=== PATIENT | female | born 1930 | race Caucasian/White ===

== ENCOUNTER → 2016-11-16 | Outpatient (CLI) | payer OTHER ==
[~2016-11-16] MED LIST: ALEN70TA2 PO; BIOTIN 300 MCG PO; CALCTAB7 PO; CYAN250T PO; FERR325T5 PO; FISHOIL PO; HYDR25TA4 PO; LEVO75TA25 PO; LORA-741 PO; MULT-845 PO; OFLO0.3S4 OPL; PRED1SUS3 OPL; PRED1SUS3 OPR; PROP20TA67 PO; SENNTAB23; VITAMIN B COMPLEX PO; ZINC 50MG PO
[2016-11-16 15:36] LABS: ALT/SGPT 23 U/L (12-78); AST/SGOT 18 U/L (15-37); BLOOD UREA NITROGEN 27 mg/dl (7-18); BUN/CREATININE RATIO 22.8 (10-20); CALCIUM 9.3 mg/dl (8.5-10.1); CARBON DIOXIDE 29 mmol/L (21-32); CHLORIDE 100 mmol/L (98-107); GLUCOSE 83 mg/dl (70-99); POTASSIUM 4.1 mmol/L (3.5-5.1); SODIUM 136 mmol/L (136-145)
[2016-11-16 15:41] LABS: ALB/GLOB RATIO 0.9 (0.9-2); ALKALINE PHOSPHATASE 44 U/L (45-117)
== END | disposition home or self-care (01) ==
LOC: C.LABSPEC 14:59
PROVIDERS: ATTEND Internal Medicine
DX: E55.9 Vitamin D deficiency, unspecified (principal); E03.9 Hypothyroidism, unspecified; I10 Essential (primary) hypertension; M81.0 Age-related osteoporosis without current pathological fracture

== ENCOUNTER → 2017-04-03 | Outpatient (CLI) | payer OTHER ==
--- NOTE | 2017-04-03 16:06 | MAMMOGRAPHY REPORT ---
BILATERAL DIGITAL SCREENING MAMMOGRAM TOMOSYNTHESIS WITH CAD: 04/03/2017 CLINICAL HISTORY: Routine screening. Patient has no complaints. TECHNIQUE: Breast tomosynthesis in addition to standard 2D mammography was performed. Current study was also evaluated with a Computer Aided Detection (CAD) system. COMPARISON: Comparison is made to exams dated: 03/30/2016 mammogram, 03/27/2015 mammogram, 03/26/2014 ma mmogram, 03/25/2013 mammogram, 03/21/2011 mammogram, and 03/19/2010 mammogram - [facility]. BREAST COMPOSITION: The tissue of both breasts is heterogeneously dense, which may obscure small mas ses. FINDINGS: A nodular asymmetry in the lateral right breast appears similar dating back to at least , therefore likely benign. There are benign rim calcifications in the left breast. No new bedoya spicious mass, architectural distortion or cluster of microcalcifications is seen. IMPRESSION: ACR BI-RADS CATEGORY 1: NEGATIVE There is no mammographic evidence of malignancy. A 1 year screening mammogram is recommended. The pa tient will receive written notification of the results. Approximately 10% of breast cancers are not detected with mammography. A negative mammographic report should not delay biopsy if a clinically suggestive mass is present. Cinthia Mejia M.D. ay/:04/03/2017 15:22:14 Ocean Export Coordinator: Thalia FERRELL(Bella)(Shon), [facility] letter sent: Normal 1/2 BI-RADS Code: ACR BI-RADS Category 1: Negative
== END | disposition home or self-care (01) ==
LOC: C.MAMM 11:56
PROVIDERS: ATTEND Internal Medicine
DX: Z12.31 Encounter for screening mammogram for malignant neoplasm of breast (principal); M81.0 Age-related osteoporosis without current pathological fracture; M85.851 Other specified disorders of bone density and structure, right thigh; M85.852 Other specified disorders of bone density and structure, left thigh; M85.832 Other specified disorders of bone density and structure, left forearm

== ENCOUNTER → 2017-05-25 | Outpatient (CLI) | payer OTHER ==
[2017-05-25 12:20] LABS: BASO % 0.7 %; BASO ABS # 0.04 K/uL (0-0.2); COMPLETE YES; HEMATOCRIT 36.7 % (37-47); IG% 0.2 %; LYMPH % 26.7 %; LYMPH ABS # 1.48 K/uL (1.2-3.4); MEAN CELL VOLUME 96.8 fL (80-100); MEAN CORPUSCULAR HEMOGLOBIN 31.1 pg (25-34); MEAN CORPUSCULAR HGB CONC 32.2 g/dl (32-36); MEAN PLATELET VOLUME 10.3 fL (7.4-10.4); NEUT % 59.4 %; PLATELET COUNT 266 K/uL (130-400); RED BLOOD COUNT 3.79 M/uL (4.2-5.4); WHITE BLOOD COUNT 5.55 K/uL (4.8-10.8)
[2017-05-25 12:35] LABS: ALT/SGPT 22 U/L (12-78); BLOOD UREA NITROGEN 19 mg/dl (7-18); BUN/CREATININE RATIO 17.6 (10-20); CALCIUM 9.4 mg/dl (8.5-10.1); CARBON DIOXIDE 28 mmol/L (21-32); CHLORIDE 106 mmol/L (98-107); CHOLESTEROL 166 mg/dl (0-200); GLUCOSE 91 mg/dl (70-99); POTASSIUM 3.9 mmol/L (3.5-5.1); SODIUM 141 mmol/L (136-145); TRIGLYCERIDES 71 mg/dl (0-150); VERY LOW DENSITY LIPOPROT CALC 14 mg/dl
[2017-05-25 12:43] LABS: ALB/GLOB RATIO 0.9 (0.9-2); ALKALINE PHOSPHATASE 45 U/L (45-117); AST/SGOT 19 U/L (15-37); HDL CHOLESTEROL 55 mg/dl; THYROID STIMULATING HORMONE 0.887 uIu/ml (0.300-4.500)
== END | disposition home or self-care (01) ==
LOC: C.LABSPEC 11:58
PROVIDERS: ATTEND Internal Medicine
DX: Z00.01 Encounter for general adult medical examination with abnormal findings (principal); E78.5 Hyperlipidemia, unspecified; I10 Essential (primary) hypertension; E03.9 Hypothyroidism, unspecified

== ENCOUNTER → 2017-06-12 | Outpatient (CLI) | payer OTHER ==
[2017-06-12 18:51] LABS: BASO % 0.3 %; BASO ABS # 0.02 K/uL (0-0.2); COMPLETE YES; EOS % 3.2 %; HEMATOCRIT 33.8 % (37-47); LYMPH % 27.5 %; LYMPH ABS # 1.81 K/uL (1.2-3.4); MEAN CELL VOLUME 96.6 fL (80-100); MEAN CORPUSCULAR HEMOGLOBIN 30.9 pg (25-34); MEAN PLATELET VOLUME 10.3 fL (7.4-10.4); MONO % 12.8 %; NEUT % 56.2 %; PLATELET COUNT 276 K/uL (130-400); WHITE BLOOD COUNT 6.58 K/uL (4.8-10.8)
== END | disposition home or self-care (01) ==
LOC: C.LABSPEC 18:14
PROVIDERS: ATTEND Internal Medicine
DX: M19.90 Unspecified osteoarthritis, unspecified site (principal)

== ENCOUNTER → 2017-07-17 | Outpatient (CLI) | payer OTHER ==
[~2017-07-17] MED LIST changes: +CHOL1000 PO; +GLUCTAB7 PO; +LEVO75TA5 PO; +MELO15TA10 PO
[2017-07-17 16:51] LABS: BASO % 0.3 %; BASO ABS # 0.02 K/uL (0-0.2); COMPLETE YES; EOS % 3.8 %; HEMATOCRIT 37.1 % (37-47); IG% 0.3 %; LYMPH % 27.9 %; LYMPH ABS # 2.05 K/uL (1.2-3.4); MEAN CELL VOLUME 96.6 fL (80-100); MEAN CORPUSCULAR HEMOGLOBIN 31.5 pg (25-34); MEAN CORPUSCULAR HGB CONC 32.6 g/dl (32-36); MEAN PLATELET VOLUME 10.3 fL (7.4-10.4); NEUT % 53.7 %; PLATELET COUNT 348 K/uL (130-400); RED BLOOD COUNT 3.84 M/uL (4.2-5.4); WHITE BLOOD COUNT 7.35 K/uL (4.8-10.8)
[2017-07-17 17:42] LABS: BLOOD UREA NITROGEN 27 mg/dl (7-18); BUN/CREATININE RATIO 17.2 (10-20); CARBON DIOXIDE 29 mmol/L (21-32); CHLORIDE 99 mmol/L (98-107); CREATININE 1.57 mg/dl (0.60-1.20); GLUCOSE 85 mg/dl (70-99); POTASSIUM 3.9 mmol/L (3.5-5.1); SODIUM 136 mmol/L (136-145)
== END | disposition home or self-care (01) ==
LOC: C.CPL 15:15
PROVIDERS: ATTEND Orthopaedic Surgery
DX: M79.641 Pain in right hand (principal)

== ENCOUNTER → 2017-07-26 | Outpatient (CLI) | payer OTHER ==
[~2017-07-26] MED LIST changes: +CEPH500C2 PO; -FISHOIL PO; -LEVO75TA25 PO; -OFLO0.3S4 OPL; -PRED1SUS3 OPL; -PRED1SUS3 OPR
--- NOTE | 2017-07-26 13:43 | MAMMOGRAPHY REPORT ---
UNILATERAL LEFT DIGITAL DIAGNOSTIC MAMMOGRAM TOMOSYNTHESIS WITH CAD AND TARGETED LEFT ULTRASOUND: CLINICAL HISTORY: 86-year-old woman presents with a two-week history of swelling and mild erythema th roughout the left breast extending into the axilla and midaxillary line. No nipple discharge reporte d by the patient. TECHNIQUE: Left breast tomosynthesis in addition to standard 2D mammography was performed. Current st udy was also evaluated with a Computer Aided Detection (CAD) system. COMPARISON: Comparison is made to exams dated: 04/03/2017 mammogram, 03/30/2016 mammogram, 03/27/2015 keyla mogram, 03/26/2014 mammogram, 03/25/2013 mammogram, and 03/22/2012 mammogram - [facility]. BREAST COMPOSITION: The tissue of the left breast is heterogeneously dense, which may obscure small masses. FINDINGS: There is new diffuse trabecular edema throughout the left breast, most prominent posterior ly, which is best appreciated on the MLO view. The previously observed crisp fat planes surrounding the left pectoralis muscle are obscured by the edema. There is also new diffuse skin thickening thro ughout the left breast, also a change from the 04/03/2017 mammogram. No obvious new focal mass or fo isaac area of architectural distortion is seen. No obvious lymphadenopathy appreciated on the MLO view . Further evaluation with ultrasound was performed. Targeted ultrasound was performed in the left axilla, throughout the left breast and slightly inferio r and lateral to the left axilla. Along the inferolateral aspect of the left axilla, there are round ed hypoechoic solid masses, that most likely represent morphologically abnormal lymph nodes. The lar gest measures 2.0 x 2.0 x 2.0 cm. More medially within the left axilla, a few lymph nodes are seen t hat are more normal in appearance with possible minimal cortical thickening measuring up to 3 mm. Th en sonographic evaluation was performed throughout the left breast. No discrete solid or cystic mass is seen. No drainable fluid collection identified. However, skin thickening is appreciated through out the entire left breast. IMPRESSION: ACR BI-RADS CATEGORY 4: SUSPICIOUS, TARGETED ULTRASOUND ACR BI-RADS CATEGORY 4: SUSPICIO US There is new diffuse skin thickening and trabecular edema of the left breast mammographically, with e vidence of skin thickening in the left breast on targeted ultrasound. There are also morphologically abnormal lymph node seen in the left axilla in an area of swelling. Differential considerations inc lude inflammatory breast cancer, lymphoma, possibly diffuse cellulitis/mastitis without evidence of a bscess. Therefore recommend a skin punch biopsy of the left breast to assess for possible inflammato ry carcinoma, and also recommend ultrasound-guided fine-needle aspiration and/or core needle biopsy o f the largest abnormal left axillary lymph node which measures 2 cm. These results and recommendations were discussed with the patient at the time of the exam. She tenta tively scheduled the left axillary lymph node FNA versus core needle biopsy prior to leaving our depa rtment. These findings were also discussed with Dr. Hoang, who will schedule the patient for sk in punch biopsy. Approximately 10% of breast cancers are not detected with mammography. A negative mammographic report should not delay biopsy if a clinically suggestive mass is present. Cinthia Mejia M.D. ay/:07/26/2017 10:48:10 Director Of Employee Development: Hanane FERRELL(Bella)(Shon), [facility] letter sent: Abnormal 4/5 BI-RADS Code: ACR BI-RADS Category 4: Suspicious Ultrasound BI-RADS: ACR BI-RADS Category 4: Suspici ous
== END | disposition home or self-care (01) ==
LOC: C.MAMM 07:58
PROVIDERS: ATTEND Internal Medicine
DX: N64.9 Disorder of breast, unspecified (principal); N64.4 Mastodynia

== ENCOUNTER → 2017-07-27 | Outpatient (CLI) | payer OTHER ==
[2017-07-27 14:08] LABS: BASO % 0.3 %; BASO ABS # 0.02 K/uL (0-0.2); COMPLETE YES; EOS % 2.7 %; HEMATOCRIT 35.5 % (37-47); IG% 0.1 %; LYMPH % 18.6 %; LYMPH ABS # 1.45 K/uL (1.2-3.4); MEAN CELL VOLUME 98.9 fL (80-100); MEAN CORPUSCULAR HEMOGLOBIN 31.2 pg (25-34); MEAN CORPUSCULAR HGB CONC 31.5 g/dl (32-36); MEAN PLATELET VOLUME 10.4 fL (7.4-10.4); MONO % 10.9 %; NEUT % 67.4 %; PLATELET COUNT 303 K/uL (130-400); RED BLOOD COUNT 3.59 M/uL (4.2-5.4)
[2017-07-27 14:22] LABS: ALT/SGPT 22 U/L (12-78); AST/SGOT 21 U/L (15-37); BLOOD UREA NITROGEN 16 mg/dl (7-18); BUN/CREATININE RATIO 15.7 (10-20); CALCIUM 9.2 mg/dl (8.5-10.1); CARBON DIOXIDE 29 mmol/L (21-32); CHLORIDE 102 mmol/L (98-107); GLUCOSE 93 mg/dl (70-99); POTASSIUM 3.8 mmol/L (3.5-5.1); SODIUM 137 mmol/L (136-145)
[2017-07-27 14:25] LABS: ALB/GLOB RATIO 0.9 (0.9-2); ALKALINE PHOSPHATASE 50 U/L (45-117)
== END | disposition home or self-care (01) ==
LOC: C.LABSPEC 12:49
PROVIDERS: ATTEND Internal Medicine
DX: R59.9 Enlarged lymph nodes, unspecified (principal)

== ENCOUNTER → 2017-07-27 | Outpatient (CLI) | payer OTHER | END | disposition home or self-care (01) | LOC: C.PATHSPEC 14:13 | PROVIDERS: ATTEND Internal Medicine | DX: R59.9 Enlarged lymph nodes, unspecified (principal) ==

== ENCOUNTER → 2017-08-01 | Outpatient (CLI) | payer OTHER ==
[~2017-08-01] MED LIST changes: +HYDR-5688 PO
--- NOTE | 2017-08-01 13:31 | Discharge Instructions ---
Discharge Instructions Procedure Procedure Date: Aug 01, 2017. Reason for visit: Left Axillary Lymph Node. Discharge Discharge Date: Aug 01, 2017. Discharge Diagnosis: post left axillary lymph node ultrasound guided core biopsy and FNA Instructions Activity Recommendations: Additional Limitations (see below) Return to School/Work: no limitations Recommended Home Diet: No Limitations Provider Instructions: ACTIVITY RECOMMENDATIONS: * No lifting, pushing, pulling or exercising the affected side for three days. RETURN TO SCHOOL/WORK: * You may return to work/school after the procedure, but do not perform any strenuous activities for 24 to 48 hours. MEDICATIONS: * Tylenol (two 325 mg) every four to six hours if needed for mild pain (if not allergic to Tylenol). DIET: * Resume previous diet. SPECIAL CARE INSTRUCTIONS: * Keep biopsy site dry for 24 hours. May shower after 24 hours, but do not soak (bathe) incision. * May remove Tegaderm (plastic patch) tomorrow AFTER showering. * Leave the steri-strips on for one week. Allow the steri-strips to fall off by themselves. If not off after one week, you may remove them. You may place a Bandaid crosswise over the strips, if desired. * Apply ice 10 minutes on and 10 minutes off as needed. * Wear a bra at bedtime to sleep more comfortably for 2-3 days. * Your referring physician should have the results after approximately 5 to 7 business days. * Call for unusual bleeding, fever, drainage, etc or if you have any questions call [phone] during normal business hours or after hours call Dr Mejia, . FOLLOW UP VISIT: Follow-up with Referring Physician as scheduled. Allergies Coded Allergies: No Known Allergies (Verified , 07/19/17) Julianne Prakash Recommendations: Call your doctor if: * Temperature above 101 degrees * Pain not relieved by pain medicine ordered * There is increased drainage or redness from any incision * You have any unanswered questions or concerns. Your Doctors Instructions noted above were prepared by provider Cinthia Mejia. Patient Signature Section: Patient Instructions Signature Page Collette Kovacs Patient (or Guardian) Signature/Date: I have read and understand the instructions given to me by my caregivers. Caregiver/RN/Doctor Signature/Date: The above-named patient and/or guardian has received patient instructions on this date. + Original Patient Signature Page (only) stays with chart. Please make copy for patient.
--- NOTE | 2017-08-02 07:34 | MAMMOGRAPHY REPORT ---
ULTRASOUND GUIDED BIOPSY LEFT BREAST: 08/01/2017 CLINICAL HISTORY: Swelling and erythema of the left breast. Patient found to have suspicious lymphad enopathy in the left axilla on targeted ultrasound. Patient presents for biopsy of the largest abnor mal lymph node. Recent skin punch biopsy yielded no malignant cells and nonspecific inflammation. COMPARISON: Comparison is made to exams dated: 07/26/2017 ultrasound, 07/26/2017 mammogram, and 2016 mammogram - [facility]. PATIENT CONSENT: The procedure, risks and benefits were discussed with the patient and informed conse nt was obtained both verbally and in writing. Specific risks to this procedure include: bleeding, in fection, puncture of adjacent structure, nontarget biopsy, sampling error, pain, metal allergy and me dication reaction. PROCEDURE DESCRIPTION: A time out was performed and the left axillary lymph node was agreed as the si te of biopsy. The skin was prepped and draped in the usual sterile fashion. The rounded hypoechoic so lid mass in the inferior and lateral left axilla was identified and targeted for biopsy. Subcutaneou s and intraparenchymal 1% buffered lidocaine, with and without epinephrine, was administered as local anesthesia. A skin incision was made. Through the incision, 4 core samples were taken with an 18 ga uge Quick-core biopsy device. Additionally, 2 fine-needle aspiration passes were obtained utilizing 22-gauge needles, and the aspirate rinsed in sterile saline. A sonolucent metallic biopsy marker was placed within the lymph node at the biopsy site. Hemostasis was achieved after manual compression. T he patient tolerated the procedure well and there was no immediate complication. Steri-Strips were p laced over the small skin incision, and covered by an OpSite patch. The samples were sent to the [facility] hology/cytology department in appropriately labeled containers. Postprocedure imaging was deferred given the far superior and lateral location of the lymph node, as it would unlikely be visualized mammographically. IMPRESSION: ULTRASOUND GUIDED BIOPSY Status post ultrasound-guided core biopsy and also fine-needle aspiration biopsy of a morphologically abnormal lymph node in the left axilla. A sonolucent biopsy marker clip was placed within the sampl ed lymph node. The patient will receive notification of the biopsy results from her referring physician. Cinthia Mejia M.D. ay/:08/01/2017 14:39:59 Grade School Teacher: Ruby FERRELL(R)(M), [facility]
== END | disposition home or self-care (01) ==
LOC: C.MAMM 12:35
PROVIDERS: ATTEND Internal Medicine
DX: C85.94 Non-Hodgkin lymphoma, unspecified, lymph nodes of axilla and upper limb (principal)

== ENCOUNTER → 2017-08-03 | Day surgery (SDC) | payer OTHER ==
[2017-07-19 15:47] VITALS: Ht 130.8 cm; Wt 60.5 kg
[~2017-08-03] VITALS: Ht 130.8 cm; Wt 60.5 kg
[~2017-08-03] MED LIST changes: +ATROPINE SULFATE 0.1 MG/ML 5ML SYR IV PRN; +EpHEDrine SULFATE INJ 50 MG/ML AMP IV PRN; +FENTANYL CITRATE INJ 50 MCG/1 ML 2 ML VIAL IV PRN; +HYDROCODONE/ACETAMOPHEN 5/325MG TAB PO PRN; +LACTATED RINGER'S 1000ML 1,000 ML IV SCH; +LIDOCAINE HCL 2% 2 ML VIAL (20MG/ML) ONE; +LIDOCAINE HCL 2% LOCAL 20 ML VIAL ONE; +MIDAZOLAM HCL 1 MG/ML 2ML VIAL ONE; +ONDANSETRON INJ 2 MG/ML 2 ML VIAL IV PRN; +PHENYLEPHRINE HCL INJ 10 MG/ML VIAL ONE; +PROPOFOL IV EMULSION 10 MG/ML 20 ML VIAL IV ONE; +SODIUM CHLORIDE 0.9% 1000ML 1,000 ML IV SCH
--- NOTE | 2017-08-03 10:48 | History & Physical Bridge Note ---
H&P Re-Evaluation Bridge Note: I have examined the patient, reviewed the History & Physical and in the interval since the performance of the History & Physical I have noted the following changes of clinical significance: No changes noted
[2017-08-03] MEDS: CEFAZOLIN 2000MG IV PUSH 10 ML IV SCH ×2 (11:46→12:18)
--- NOTE | 2017-08-03 12:39 | [facility] Post Operative Brief Note ---
Immediate Operative Summary Operative Date Aug 03, 2017. Pre-Operative Diagnosis Carpal Tunnel Syndrome Post-Operative Diagnosis same Procedure(s) Performed Carpal Tunnel Release Surgeon Dr Swanson Consulting Solution Director Surgeon(s) Jamin Vasquez PAC Estimated Blood Loss 5 cc Findings as above Specimens none Complication(s) None Disposition Recovery Room / PACU
--- NOTE | 2017-08-03 12:56 | Discharge Instructions-SurgCtr ---
Discharge Instructions Date of Service Aug 03, 2017. Visit Reason for Visit: Left Carpal Tunnel Syndrome Discharge Discharge Diagnosis / Problem: SAME ABOVE Discharge Goals Goal(s): Decrease discomfort, Improve function Medications Stopped Medications Name(s): Fosamax, glucosamine, meloxicam, multivit. biotin stopped for a week. Restart Stopped Medication(s): MAY RESTART ALL MEDICATION 08/03/2017 Activity Recommendations Activity Limitations: as noted below Lifting Limitations: until after follow-up appointment Exercise/Sports Limitations: until after follow-up appointment Anesthesia . Post Anesthesia Instructions: If you have had General Anesthesia or IV Sedation: * Do not drive today. * Resume driving when surgeon permits. * Do not make important decisions or sign legal documents today. * Call surgeon for: 1. Temperature elevations greater than 101 degrees F. 2. Uncontrollable pain. 3. Excessive bleeding. 4. Persistent nausea and vomiting. 5. Medication intolerance (nausea, vomiting or rash). * For nausea and vomiting use only clear liquids such as: tea, soda, bouillon until nausea subsides, then gradually increase diet as tolerated. * If you have any concerns or questions, call your surgeon's office. If physician is unavailable and it is an emergency, call 911 or go to the nearest emergency room. . Instructions / Follow-Up Instructions / Follow-Up MEDICATIONS: * Resume previous medications unless instructed otherwise by your surgeon. * Always take pain medication on a full stomach or with food to avoid upset stomach. * Do not drink alcohol or drive while taking narcotics. * Ibuprofen or Tylenol may be taken if narcotic not needed. SPECIAL CARE INSTRUCTIONS: __ None _X_ Keep extremity elevated and iced x 48 hours; apply ice 20-30 minutes 8-10 times/day. May remove at night. __ Sling __24 hrs/day __ Remove at night __ Shoulder Immobilizer __ 24 hrs/day __ Remove at night _X_ Dressing __ Maintain until seen in office, may shower with plastic over site _X_ Remove dressings in 5 DAYS. MAY SHOWER SOONER IF COVERED WITH PLASTIC BAG _X_ Cover incisions with band-aids after showering __ Do not remove steri-strips Call physician if chills or temperature rises above 102 degrees or pain unrelieved by prescribed pain medications at . . Diet Recommendations Home Diet: no limitations Fluid Restriction: None Procedures Procedures Performed: Carpal Tunnel Release Pending Studies Studies pending at discharge: no Medical Emergencies . Who to Call and When: Medical Emergencies: If at any time you feel your situation is an emergency, please call 911 immediately. . Non-Emergent Contact Non-Emergency issues call your: Primary Care Provider Call Non-Emergent contact if: you have a fever, temperature is above 101.5 . . "Provider Documentation" section prepared by Jorge Vasquez. .
--- NOTE | 2017-08-03 13:19 | OPERATIVE REPORT ---
DATE OF OPERATION: 08/03/2017 PREOPERATIVE DIAGNOSIS: Carpal tunnel syndrome of the left wrist. POSTOPERATIVE DIAGNOSIS: Same. PROCEDURE: Open left carpal tunnel release. SURGEON: Dr. Roberto Swanson. FURNACE COOLER: Jamin Vasquez PA-C, whose assistance was necessary for positioning the hand and helping with instrumentation. ANESTHESIA: Local with sedation. COMPLICATIONS: None. CONDITION: Stable to PACU. INDICATIONS: Collette is a pleasant 86-year-old female who has completely lost feeling in her left hand. She was also having a lot of pain. EMG study showed severe carpal tunnel syndrome. After failing conservative treatment, she elected to proceed with an open carpal tunnel release. DESCRIPTION OF PROCEDURE: On 08/03/2017, she arrived at [facility] for the above procedure. She was seen in the preoperative holding area and the operative extremity was identified and signed. She was given a preoperative antibiotic and taken back to the operating room, laid on the table in supine position and put under basic sedation. The left hand was then prepped and draped in sterile fashion. Time-out was done and the patient's operative extremity was properly identified. The surgical site was then anesthetized with 10 mL of lidocaine. A longitudinal incision was then made directly over the transverse carpal ligament. Dissection was taken down through the palmar fascia and the ligament was exposed. A knife and tenotomy scissors were then used to transect the transverse carpal ligament and care was taken to ensure complete proximal and distal release. Care was also taken not to disrupt the palmar cutaneous branch or the motor branch of the nerve. The wound was then irrigated and closed with 4-0 nylon sutures. She was then placed in a soft dressing and taken to the postanesthesia care unit in stable condition. She tolerated the procedure well. I attest to the content of the Intraoperative Record and any orders documented therein. Any exception s are noted below.
--- NOTE | 2017-08-03 13:56 | Anesthesia Progress Nt - [facility] ---
Anesthesia Post Op Note Date & Time Aug 03, 2017 at 13:39 Vital Signs Pain Intensity: 0 Vital Signs Past 12 Hours Date Time Temp Pulse Resp B/P (MAP) Pulse Ox O2 Delivery O2 Flow Rate FiO2 08/03/17 13:13 36.6 85 18 95/57 100 Mask 6 08/03/17 11:19 36.3 88 18 163/85 (111) 97 Room Air Notes Mental Status: alert / awake / arousable, participated in evaluation Pt Amnestic to Procedure: Yes Nausea / Vomiting: adequately controlled Pain: adequately controlled Airway Patency, RR, SpO2: stable & adequate BP & HR: stable & adequate Hydration State: stable & adequate Anesthetic Complications: no major complications apparent The patient is an 86 y/o female with a h/o HTN, OA, hypothyroidism and CKD who is s/p L CTR with Dr. Swanson. 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 Her BP initially did not seem to respond to IV phenylephrine that was given from the pre-made syringes, however once we gave her IV phenylephrine and ephedrine mixed from the vials, we had an immediate and appropriate response. Throughout this time, the patient was awake and conversing appropriately with us. She stated that she felt fine denying any chest pain, shortness of breath, lightheaded or dizziness. There were no ECG changes in the monitor. All other vital signs were stable. The patient also did not have a rash, hives, swelling or any other signs of allergic reaction. She had received a total of 2mg IV midazolam and 100mg IV propofol throughout the case as well as 600cc IV fluids. Her drop in BP at the end of the case was likely due to the cumulative effects of the midazolam and propofol combined with some intravascular volume depletion and lack of surgical stimulation once the local anesthetic took effect. In recovery, the patient continued to do well and her BP and all other vital signs remained stable without further need for any vasopressors. The patient felt well on discharge with no complaints. She was instructed to go to the ED with any chest pain, shortness of breath, lightheaded or dizziness or with any other concerns. She understands and agrees.
[2017-08-03 14:58] VITALS: BP 127/74; PULSE 88; TEMP 36.7; O2SAT 95
== END | disposition home or self-care (01) ==
LOC: X.SURG 10:48
PROVIDERS: ATTEND Orthopaedic Surgery
DX: G56.02 Carpal tunnel syndrome, left upper limb (principal); I12.9 Hypertensive chronic kidney disease with stage 1 through stage 4 chronic kidney disease, or unspecified chronic kidney disease; N18.9 Chronic kidney disease, unspecified; Z98.890 Other specified postprocedural states; E66.9 Obesity, unspecified; Z68.35 Body mass index [BMI] 35.0-35.9, adult; Z98.41 Cataract extraction status, right eye; Z98.42 Cataract extraction status, left eye; Z80.6 Family history of leukemia; Z80.1 Family history of malignant neoplasm of trachea, bronchus and lung; Z82.49 Family history of ischemic heart disease and other diseases of the circulatory system

== ENCOUNTER → 2017-08-16 | Outpatient (CLI) | payer OTHER ==
[~2017-08-16] MED LIST changes: -ATROPINE SULFATE 0.1 MG/ML 5ML SYR IV PRN; -EpHEDrine SULFATE INJ 50 MG/ML AMP IV PRN; -FENTANYL CITRATE INJ 50 MCG/1 ML 2 ML VIAL IV PRN; -HYDROCODONE/ACETAMOPHEN 5/325MG TAB PO PRN; -LACTATED RINGER'S 1000ML 1,000 ML IV SCH; -LIDOCAINE HCL 2% 2 ML VIAL (20MG/ML) ONE; -LIDOCAINE HCL 2% LOCAL 20 ML VIAL ONE; -MIDAZOLAM HCL 1 MG/ML 2ML VIAL ONE; -ONDANSETRON INJ 2 MG/ML 2 ML VIAL IV PRN; -PHENYLEPHRINE HCL INJ 10 MG/ML VIAL ONE; -PROPOFOL IV EMULSION 10 MG/ML 20 ML VIAL IV ONE; -SODIUM CHLORIDE 0.9% 1000ML 1,000 ML IV SCH
[2017-08-16 17:59] LABS: BASO % 0.4 %; BASO ABS # 0.03 K/uL (0-0.2); COMPLETE YES; EOS % 4.5 %; HEMATOCRIT 34.8 % (37-47); IG% 0.1 %; LYMPH % 27.4 %; LYMPH ABS # 1.85 K/uL (1.2-3.4); MEAN CELL VOLUME 97.5 fL (80-100); MEAN CORPUSCULAR HEMOGLOBIN 31.7 pg (25-34); MEAN CORPUSCULAR HGB CONC 32.5 g/dl (32-36); MEAN PLATELET VOLUME 10.6 fL (7.4-10.4); MONO % 11.3 %; NEUT % 56.3 %; PLATELET COUNT 319 K/uL (130-400); RED BLOOD COUNT 3.57 M/uL (4.2-5.4); WHITE BLOOD COUNT 6.74 K/uL (4.8-10.8)
[2017-08-16 18:08] LABS: ALT/SGPT 23 U/L (12-78); BLOOD UREA NITROGEN 22 mg/dl (7-18); BUN/CREATININE RATIO 17.1 (10-20); CARBON DIOXIDE 31 mmol/L (21-32); CHLORIDE 101 mmol/L (98-107); CREATININE 1.29 mg/dl (0.60-1.20); GLUCOSE 92 mg/dl (70-99); POTASSIUM 4.2 mmol/L (3.5-5.1); SODIUM 137 mmol/L (136-145)
[2017-08-16 18:11] LABS: ALB/GLOB RATIO 0.9 (0.9-2); ALKALINE PHOSPHATASE 52 U/L (45-117); AST/SGOT 25 U/L (15-37)
== END | disposition home or self-care (01) ==
LOC: C.LABSPEC 17:30
PROVIDERS: ATTEND Internal Medicine
DX: C83.30 Diffuse large B-cell lymphoma, unspecified site (principal)

== ENCOUNTER → 2017-08-17 | Outpatient (CLI) | payer OTHER ==
[~2017-08-17] MED LIST changes: +ACET-1222 PO; +B COCAP3 PO; +BIOT300T2 PO; +CYAN100073 PO; +OPTIRAY 320 IV PRN; +ZINC1TAB PO
--- NOTE | 2017-08-17 15:16 | DIAGNOSTIC IMAGING REPORT ---
CT ABD/PELVIS IV AND ORAL CONT CLINICAL HISTORY: B-CELL LYMPHOMA COMPARISON STUDY: None. TECHNIQUE: Following the IV administration of 93 mL of Optiray-320, CT scan of the abdomen and pelvis was performed from the lung bases to the proximal femurs. Images are reviewed in the axial, sagittal, and coronal planes. IV contrast was administered without complication. A dose lowering technique was utilized adhering to the principles of ALARA. CT DOSE: FINDINGS: Lower chest: There is a left axillary lymphadenopathy. The heart is normal in size with coronary calcifications. There is left chest wall edema. Liver: The contrast-enhanced liver is normal in size, contour, and attenuation. There is no intrahepatic biliary ductal dilatation. The hepatic veins and portal veins are patent. Gallbladder: Cholelithiasis Spleen: Normal in size and attenuation. Pancreas: Unremarkable. Adrenal glands: Unremarkable. Kidneys: There is an 8 mm left renal cyst. No solid renal masses are visualized. Bowel: There are no transition zones indicate bowel obstruction. The appendix appears normal. There is no acute diverticulitis. Peritoneum: There is no intraperitoneal free air or abdominal ascites. Vasculature: The abdominal aorta is normal in course and caliber. Adenopathy: There is no pathologic adenopathy within the abdomen or pelvis Pelvic viscera: The uterus is surgically absent. A pessary is visualized. Skeletal structures: There are multiple vertebral body compression deformities. There is evidence for multiple prior vertebroplasties. IMPRESSION: 1. Pathologic left axillary lymphadenopathy with left chest wall edema 2. No evidence of pathologic adenopathy within the abdomen or pelvis 3. Cholelithiasis Electronically signed by: Terell Nova M.D. 08/17/2017 3:15 PM Dictated Date/Time: 08/17/2017 3:11 PM
--- NOTE | 2017-08-17 15:21 | DIAGNOSTIC IMAGING REPORT ---
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 TECHNIQUE: Multidetector CT imaging of the chest was performed after the administration of intravenous contrast. IV contrast: 93 mL of Optiray 320. A dose lowering technique was used consistent with the principles of ALARA (as low as reasonably achievable). COMPARISON: None. CT DOSE (mGy.cm): The estimated cumulative dose is 803.91 mGy.cm. FINDINGS: Coagulating Bath Mixer topogram: Kyphoplasty at multiple levels. On soft tissue windows, suggestion of thyroid nodules. Extensive soft tissue abnormality in the left supraclavicular fossa stenting into the superior mediastinum. Nonopacification of the left internal jugular vein. Extensive left axillary lymphadenopathy. No mediastinal or hilar lymphadenopathy. Atherosclerosis of the aorta. The descending thoracic aorta is tortuous. The ascending aorta measures 3.9 cm in diameter, top normal in size. Mild enlargement of the main pulmonary artery, which measures 3.1 cm in transverse dimension. Normal heart size. Extensive coronary artery calcification. No pericardial or pleural effusion. Cholelithiasis. Mild prominence of the pancreatic duct. On lung windows, mosaic attenuation could suggest small airways disease. Minimal bandlike opacities likely atelectasis or scarring. No other focal infiltrate or nodule. Airways patent. On bone windows, exaggerated thoracic kyphosis with multiple levels demonstrating post procedure changes of kyphoplasty. Osteopenia. With multiple levels demonstrating compression deformities, age indeterminate but many are likely chronic. IMPRESSION: 1. Extensive lymphadenopathy in the left supraclavicular fossa and left axilla consistent with lymphoma. Notably, there is nonvisualization of the left internal jugular vein, which may be excluded. 2. No evidence of parenchymal involvement of lymphoma in the lungs. 3. Osteopenia with multiple compression deformities, many of which are likely chronic. Posttreatment changes of kyphoplasty. Electronically signed by: Gregorio Shelton M.D. 08/17/2017 3:20 PM Dictated Date/Time: 08/17/2017 3:15 PM
== END | disposition home or self-care (01) ==
LOC: C.CTS 12:53
PROVIDERS: ATTEND Internal Medicine
DX: C85.10 Unspecified B-cell lymphoma, unspecified site (principal); K80.20 Calculus of gallbladder without cholecystitis without obstruction; M85.88 Other specified disorders of bone density and structure, other site; Z98.890 Other specified postprocedural states

== ENCOUNTER → 2017-08-24 | Outpatient (CLI) | payer OTHER ==
[~2017-08-24] MED LIST changes: -OPTIRAY 320 IV PRN
--- NOTE | 2017-08-24 17:42 | ECHOCARDIOGRAM REPORT ---
*NOTICE TO RECEIVING LIBERTARIAN AGENCY This information is strictly Confidential and protected under [place] law. [place] law prohibits you from making any further disclosure of this information unless further disclosure is expressly permitted by the written consent of the person to whom it pertains or is authorized by law. A general authorization for the release of medical or other information is not sufficient for this purpose. Hospital accepts no responsibility if the information is made available to any other person, INCLUDING THE PATIENT. Interpretation Summary * Name: DON YORK Study Date: 08/24/2017 02:25 PM BP: 127/74 mmHg * Patient Location: [facility] HR: 77 * : 1930 (M/d/yyyy) Gender: Female Height: 53 in * Age: 86 yrs Ethnicity: CA Weight: 135 lb * Ordering Physician: Ty Trimble * Referring Physician: Ty Trimble D.O. * Performed By: G[facility] * * Reason For Study: LYMPHOMA * BSA: 1.4 m2 * -- Conclusions -- * 1. Normal left ventricular size and systolic function. EF 60-65%. No regional wall motion abnormalities. Mild concentric left ventricular hypertrophy. Type 1 diastolic dysfunction. * 2. The left atrium is moderately dilated. * 3. Mild aortic regurgitation. * 4. Mildly dilated ascending aorta. * 5. Normal estimated right ventricular systolic pressure; 36mmHg. * 6. No prior study available for comparison. Procedure Details * A complete two-dimensional transthoracic echocardiogram was performed (2D, M-mode, Doppler and color flow Doppler). Left Ventricle * Normal left ventricular size and systolic function. EF 60-65%. No regional wall motion abnormalities. Mild concentric left ventricular hypertrophy. Type 1 diastolic dysfunction. Right Ventricle * The right ventricle is normal in size and function. * The right ventricular systolic function is normal as assessed by tricuspid annular plane systolic excursion (TAPSE) (normal >1.5 cm). Atria * The left atrium is moderately dilated. * Right atrial size is normal. * There is no evidence of atrial septal defect, but resolution does not allow assessment for a patent foramen ovale. Mitral Valve * There is mild mitral annular calcification. * There is no mitral valve stenosis. * There is trace mitral regurgitation. Tricuspid Valve * The tricuspid valve is not well visualized, but is grossly normal. * There is no tricuspid stenosis. * There is trace tricuspid regurgitation. Aortic Valve * The aortic valve is trileaflet. * No hemodynamically significant valvular aortic stenosis. * Mild aortic regurgitation. Pulmonic Valve * The pulmonary valve is inadequately visualized, but the Doppler data is adequate for interpretation. * There is no pulmonic valvular stenosis. * Mild pulmonic valvular regurgitation. Great Vessels * The aortic root is normal size. * Mildly dilated ascending aorta. Pericardium/Pleural * There is no pericardial effusion. Great Vessels * Normal pulmonary venous flow pattern. Normal IVC size with mildly reduced inspiratory collapse. MMode 2D Measurements and Calculations IVSd 1.2 cm IVSs 1.7 cm LVIDd 3.8 cm LVIDs 2.1 cm LVPWd 1.3 cm LVPWs 1.4 cm IVS/LVPW 0.92 FS 44.9 % EDV(Teich) 61.3 ml ESV(Teich) 14.1 ml EF(Teich) 76.9 % EDV(cubed) 54.1 ml ESV(cubed) 9.1 ml EF(cubed) 83.3 % % IVS thick 43.6 % % LVPW thick 13.2 % LV mass(C)d 157.9 grams LV mass(C)dI 109.4 grams/m\S\2 LV mass(C)s 112.0 grams LV mass(C)sI 77.6 grams/m\S\2 SV(Teich) 47.1 ml SI(Teich) 32.7 ml/m\S\2 SV(cubed) 45.1 ml SI(cubed) 31.2 ml/m\S\2 Ao root diam 3.1 cm Ao root area 7.6 cm\S\2 ACS 1.8 cm LA dimension 3.7 cm asc Aorta Diam 3.8 cm LA/Ao 1.2 LVOT diam 2.0 cm LVOT area 3.0 cm\S\2 LVAd ap4 23.6 cm\S\2 LVLd ap4 6.5 cm EDV(MOD-sp4) 68.9 ml EDV(sp4-el) 72.8 ml LVAs ap4 12.6 cm\S\2 LVLs ap4 5.3 cm ESV(MOD-sp4) 26.2 ml ESV(sp4-el) 25.4 ml EF(MOD-sp4) 61.9 % EF(sp4-el) 65.1 % LVAd ap2 21.6 cm\S\2 LVLd ap2 6.7 cm EDV(MOD-sp2) 58.1 ml EDV(sp2-el) 59.5 ml LVAs ap2 12.4 cm\S\2 LVLs ap2 5.8 cm ESV(MOD-sp2) 22.6 ml ESV(sp2-el) 22.4 ml EF(MOD-sp2) 61.1 % EF(sp2-el) 62.4 % LVLd %diff 2.3 % EDV(MOD-bp) 63.5 ml LVLs %diff 7.9 % ESV(MOD-bp) 25.3 ml EF(MOD-bp) 60.2 % SV(MOD-sp4) 42.6 ml SI(MOD-sp4) 29.5 ml/m\S\2 SV(MOD-sp2) 35.5 ml SI(MOD-sp2) 24.6 ml/m\S\2 SV(MOD-bp) 38.2 ml SI(MOD-bp) 26.5 ml/m\S\2 SV(sp4-el) 47.4 ml SI(sp4-el) 32.8 ml/m\S\2 SV(sp2-el) 37.1 ml SI(sp2-el) 25.7 ml/m\S\2 Doppler Measurements and Calculations MV E max benjamin 77.6 cm/sec MV A max benjamin 94.9 cm/sec MV E/A 0.82 MV P1/2t max benjamin 95.1 cm/sec MV P1/2t 75.5 msec MVA(P1/2t) 2.9 cm\S\2 MV dec slope 368.8 cm/sec\S\2 MV dec time 0.23 sec Ao V2 max 152.7 cm/sec Ao max PG 9.3 mmHg Ao max PG (full) 1.0 mmHg LAURA(V,A) 2.8 cm\S\2 LAURA(V,D) 2.8 cm\S\2 AI max benjamin 415.4 cm/sec AI max PG 69.1 mmHg AI dec slope 205.3 cm/sec\S\2 AI P1/2t 592.8 msec LV V1 max PG 8.3 mmHg LV V1 max 144.0 cm/sec PA V2 max 119.8 cm/sec PA max PG 5.7 mmHg PI max benjamin 208.2 cm/sec PI max PG 17.4 mmHg PI dec slope 166.7 cm/sec\S\2 PI P1/2t 365.9 msec TR max benjamin 264.6 cm/sec RVSP(TR) 36.0 mmHg RAP systole 8.0 mmHg
== END | disposition home or self-care (01) ==
LOC: C.CPL 14:17
PROVIDERS: ATTEND Internal Medicine Hematology & Oncology
DX: C85.10 Unspecified B-cell lymphoma, unspecified site (principal)

== ENCOUNTER → 2017-08-30 | Outpatient (CLI) | payer OTHER ==
[~2017-08-30] MED LIST changes: +ACET1TAB84 PO; +AMOX1TAB42 PO; +B-COTAB18 PO; +CHOL1CAP57 PO; +CMD25 PO; +CYAN1TAB4 PO; +DFL100 PO; +FERR1TAB13 PO; +FURO-85 PO; +MCRK20 PO; +OXYC-57 PO; +PANT1TAB3 PO; +PRD20 PO; +VANC1CAP3 PO; +WARF5TAB7 PO
--- NOTE | 2017-08-30 14:58 | DIAGNOSTIC IMAGING REPORT ---
PET/CT SKULL-THIGH CLINICAL HISTORY: Diffuse large B-cell lymphoma COMPARISON STUDY: CT scan dated 08/17/2017 FINDINGS: Patient was injected with 11.8 mCi of F 18 labeled FDG. Findings standard induction phase, PET/CT scanning was performed from the skull base to the upper thigh region. Within the neck, there is extensive FDG avid left neck lymphadenopathy. An index lymph node within the left posterior triangle measuring 27 mm, has an SUV maximum of 25. An index lymph node mass at the base of the left neck measuring 41 mm, has an SUV maximum of 21. There is also a mildly FDG avid lymph node in the upper left parapharyngeal space. There are multiple FDG avid left axillary lymph nodes demonstrating SUV maximum of 24. A focus of mildly increased FDG activity within the lower right neck, likely represents physiologic thyroid activity. Within the chest, there are no FDG avid mediastinal or hilar lymph nodes. There is no FDG avid parenchymal disease. There are no pleural effusions. In the abdomen, there are no FDG avid nodes. There are no FDG avid pelvic lymph nodes. Incidental note is made of a pessary. There is cholelithiasis. There are no FDG avid skeletal lesions. There are multiple vertebral body compression fractures and there is evidence for multiple prior vertebroplasties. IMPRESSION: 1. Extensive left neck and left axillary intensely FDG avid adenopathy, consistent with the patient's known lymphoma. No definite contralateral right neck pathologic adenopathy 2. No below the diaphragm FDG avid adenopathy. 3. Cholelithiasis Electronically signed by: Terell Nova M.D. 08/30/2017 2:57 PM Dictated Date/Time: 08/30/2017 2:47 PM
== END | disposition home or self-care (01) ==
LOC: C.PET 11:51
PROVIDERS: ATTEND Internal Medicine Hematology & Oncology
DX: C85.10 Unspecified B-cell lymphoma, unspecified site (principal)

== ENCOUNTER 2017-09-04 06:58 | Day surgery (SDC) | payer OTHER ==
[2017-08-31 16:08] VITALS: BMI 36.0
[~2017-09-04] VITALS: Ht 129.5 cm; Wt 61.4 kg
[~2017-09-04 06:58] MED LIST changes: -ACET1TAB84 PO; -AMOX1TAB42 PO; -B-COTAB18 PO; -BIOTIN 300 MCG PO; +CEFAZOLIN 2000MG IV PUSH 10 ML IV SCH; -CEPH500C2 PO; -CHOL1CAP57 PO; -CMD25 PO; -CYAN1TAB4 PO; -CYAN250T PO; -DFL100 PO; -FERR1TAB13 PO; -FURO-85 PO; -HYDR-5688 PO; +LACTATED RINGER'S 1000ML 1,000 ML IV SCH; -MCRK20 PO; -OXYC-57 PO; -PANT1TAB3 PO; -PRD20 PO; -VANC1CAP3 PO; -VITAMIN B COMPLEX PO; -WARF5TAB7 PO; -ZINC 50MG PO
[2017-09-04] MEDS ORDERED: FENTANYL CITRATE INJ 50 MCG/1 ML 2 ML VIAL ONE (07:36)
[2017-09-04 07:49] VITALS: BP 133/78; PULSE 78; TEMP 37; O2SAT 93; Ht 129.5 cm; Wt 61.4 kg
[2017-09-04] MEDS ORDERED: LIDOCAINE HCL 1% 20 ML VIAL ONE ×2 (08:08→08:34)
[2017-09-04] MEDS ORDERED: HEPARIN SOD (PORCINE) 1000 UNIT/ML 10 ML VIAL ONE (08:08)
[2017-09-04] MEDS ORDERED: CEFAZOLIN SOD 1 GM VIAL ONE (08:08)
[2017-09-04] MEDS ORDERED: THROMBIN FOR SOLN 20000 UNIT KIT ONE (08:08)
[2017-09-04] MEDS ORDERED: PROPOFOL IV EMULSION 10 MG/ML 20 ML VIAL IV ONE (08:53)
[2017-09-04] MEDS ORDERED: LIDOCAINE HCL 2% 2 ML VIAL (20MG/ML) ONE (08:53)
[2017-09-04] MEDS ORDERED: HYDR-5688 PO (09:19)
[2017-09-04] MEDS ORDERED: LACTATED RINGER'S 1000ML 1,000 ML IV SCH (09:20)
--- NOTE | 2017-09-04 09:20 | Discharge Instructions ---
Discharge Instructions Date of Service Sep 04, 2017. Visit Reason for Visit: Non-Hodgkin's Lymphoma, Lack Of Intravenous Access Discharge Discharge Diagnosis / Problem: A-port placement Discharge Goals Goal(s): Therapeutic intervention Activity Recommendations Activity Limitations: as noted below Shower/Bathe: keep incision dry (for 2 days) Anesthesia . Post Anesthesia Instructions: If you have had General Anesthesia or IV Sedation: * Do not drive today. * Resume driving when surgeon permits. * Do not make important decisions or sign legal documents today. * Call surgeon for: 1. Temperature elevations greater than 101 degrees F. 2. Uncontrollable pain. 3. Excessive bleeding. 4. Persistent nausea and vomiting. 5. Medication intolerance (nausea, vomiting or rash). * For nausea and vomiting use only clear liquids such as: tea, soda, bouillon until nausea subsides, then gradually increase diet as tolerated. * If you have any concerns or questions, call your surgeon's office. If physician is unavailable and it is an emergency, call 911 or go to the nearest emergency room. . Instructions / Follow-Up Instructions / Follow-Up Dr. Delgado office in 2 weeks for suture removal it is OK for port to be used Diet Recommendations Recommended Home Diet: no limitations Procedures Procedures Performed: Insertion of A-Port Right Subclavian Vein Pending Studies Studies pending at discharge: no Medical Emergencies . Who to Call and When: Medical Emergencies: If at any time you feel your situation is an emergency, please call 911 immediately. . Non-Emergent Contact Non-Emergency issues call your: Surgeon Call Non-Emergent contact if: you have a fever, temperature is above 101.5, your pain is not controlled, wound has increased redness, you have any medication questions . . "Provider Documentation" section prepared by Eric Raymond. .
--- NOTE | 2017-09-04 09:29 | [facility] Operative Report ---
Operative Report Operative Date Sep 04, 2017. Pre-Operative Diagnosis IV access Post-Operative Diagnosis IV access Procedure(s) Performed Insertion of A-Port Right Subclavian Vein Surgeon Dr. Derek Delgado Tenter Surgeon(s) None Estimated Blood Loss 10ml Findings port placed Specimens none per surgeon Dr. Derek Delgado Anesthesia local/ sedation Complication(s) None Disposition Recovery Room / PACU I attest to the content of the Intraoperative Record and any orders documented therein. Any exceptions are noted below.
[2017-09-04] MEDS ORDERED: MoRPHine SULFATE 2 MG/ML CARP IV PRN (09:30)
[2017-09-04] MEDS ORDERED: ONDANSETRON INJ 2 MG/ML 2 ML VIAL IV PRN ×3 (09:30→10:00)
[2017-09-04] MEDS ORDERED: HYDROCODONE/ACETAMOPHEN 5/325MG TAB PO PRN ×3 (09:30)
--- NOTE | 2017-09-04 09:45 | OPERATIVE REPORT ---
DATE OF OPERATION: 09/04/2017 NAME OF OPERATION: Port placement. PREOPERATIVE DIAGNOSIS: Lymphoma. POSTOPERATIVE DIAGNOSIS: Same. STAFF SURGEON: Dr. Derek Delgado. ANESTHESIA: Local with sedation. DESCRIPTION OF PROCEDURE: The patient was brought in the operating room and placed on the operating table in supine position. A roll was placed between her shoulders. Her chest was prepped and draped in usual fashion. The right chest was approached. Skin and subcutaneous tissue over the right deltopectoral groove were anesthetized. Incision made carrying dissection down and identifying a large cephalic vein. I was able to pass the wire under fluoroscopy into the subclavian and superior vena cava. However, using a dilator and introducer, I was unable to pass the catheter because of the introducer kinking. At this point, the cephalic vein was ligated and then I placed the patient in Trendelenburg position. Using a puncture technique, the right subclavian vein was localized, a wire was passed under fluoroscopy down into the superior vena cava and then I obtained a 9-Slovak introducer and dilator, passed it over the wire, removed the dilator and wire. Then, with some difficulty, the catheter was passed, but I had to be careful because the introducer again was kinking, but I was unable to pass the catheter into the superior vena cava, removing the introducer, positioned the catheter appropriately, aspirating and flushing it with heparinized solution. At this point, a pocket was fashioned in the chest wall. The catheter was attached to the port. Port placed into the pocket and secured to the chest wall using 3-0 Prolene suture. The port was aspirated and flushed with heparinized solution and then the subcutaneous tissue reapproximated using 2-0 chromic catgut suture, then the skin reapproximated using 4-0 nylon suture. The patient was transferred to the recovery room in stable condition. I attest to the content of the Intraoperative Record and any orders documented therein. Any exception s are noted below.
--- NOTE | 2017-09-04 09:47 | OPERATIVE REPORT ---
DATE OF OPERATION: 09/04/2017 ADDENDUM PROCEDURE: Fluoroscopy. DESCRIPTION OF PROCEDURE: The patient was in the operating room undergoing port placement. I did use fluoroscopy during the procedure to place the catheter. It was somewhat more difficult than usual and I did require additional fluoroscopy. I attest to the content of the Intraoperative Record and any orders documented therein. Any exception s are noted below.
--- NOTE | 2017-09-04 09:47 | DIAGNOSTIC IMAGING REPORT ---
CHEST ONE VIEW PORTABLE CLINICAL HISTORY: port placement tube position COMPARISON STUDY: 08/23/2012 FINDINGS: Central catheter placement right-sided approach with the tip in the superior vena cava. No evidence pneumothorax. Lungs are grossly clear. The vertebral kyphoplasty is which have been described previous study. IMPRESSION: Right central catheter positioned in the superior vena cava. No evidence for pneumothorax. The above report was generated using voice recognition software. It may contain grammatical, syntax or spelling errors. Electronically signed by: Sushant Sutton M.D. 09/04/2017 9:46 AM Dictated Date/Time: 09/04/2017 9:45 AM
--- NOTE | 2017-09-04 09:49 | Anesthesiology Progress Note ---
Anesthesia Post Op Note Date & Time Sep 04, 2017 at 09:49 Vital Signs Pain Intensity: 0 Vital Signs Past 12 Hours Date Time Temp Pulse Resp B/P (MAP) Pulse Ox O2 Delivery O2 Flow Rate FiO2 09/04/17 09:35 84 19 110/58 95 Nasal Cannula 2 09/04/17 09:28 36.3 87 18 112/61 88 Room Air 09/04/17 07:49 37 78 20 133/78 (96) 93 Room Air Notes Mental Status: alert / awake / arousable, participated in evaluation Pt Amnestic to Procedure: Yes Nausea / Vomiting: adequately controlled Pain: adequately controlled Airway Patency, RR, SpO2: stable & adequate BP & HR: stable & adequate Hydration State: stable & adequate Anesthetic Complications: no major complications apparent
[2017-09-04 09:55] VITALS: BP 116/65; PULSE 85; TEMP 36.7; O2SAT 98
[2017-09-04] MEDS ORDERED: EpHEDrine SULFATE INJ 50 MG/ML AMP IV PRN (10:00)
[2017-09-04] MEDS ORDERED: FENTANYL CITRATE INJ 50 MCG/1 ML 2 ML VIAL IV PRN (10:00)
[2017-09-04] MEDS ORDERED: ATROPINE SULFATE 0.1 MG/ML 5ML SYR IV PRN (10:00)
[2017-09-04 10:25] VITALS: BP 140/75; PULSE 88; O2SAT 96
[2017-09-04 10:45] VITALS: BP 111/70; PULSE 89; TEMP 36.6; O2SAT 96
== END 2017-09-04 10:50 | disposition home or self-care (01) ==
LOC: C.ACU 06:58
PROVIDERS: ATTEND Surgery
DX: C85.90 Non-Hodgkin lymphoma, unspecified, unspecified site (principal); I89.0 Lymphedema, not elsewhere classified; I12.9 Hypertensive chronic kidney disease with stage 1 through stage 4 chronic kidney disease, or unspecified chronic kidney disease; N18.9 Chronic kidney disease, unspecified; F41.9 Anxiety disorder, unspecified; E03.9 Hypothyroidism, unspecified; M81.0 Age-related osteoporosis without current pathological fracture; Z79.899 Other long term (current) drug therapy; Z98.41 Cataract extraction status, right eye; Z98.42 Cataract extraction status, left eye; Z98.890 Other specified postprocedural states; Z90.89 Acquired absence of other organs; Z82.49 Family history of ischemic heart disease and other diseases of the circulatory system; Z80.0 Family history of malignant neoplasm of digestive organs

== ENCOUNTER 2017-10-23 05:28 | Inpatient (IN) | payer OTHER ==
[~2017-10-23] VITALS: Ht 132.1 cm; Wt 57.4 kg
[2017-10-23] VITALS (20 sets, daily range): BP systolic 84–149; BP diastolic 27–69; PULSE 83–109; TEMP 36.5–37.3; O2SAT 90–99; BMI 37.7
[~2017-10-23 05:28] MED LIST changes: -ACET-1222 PO; -CEFAZOLIN 2000MG IV PUSH 10 ML IV SCH; +HYDR-5688 PO; -LACTATED RINGER'S 1000ML 1,000 ML IV SCH
[2017-10-23] MEDS ORDERED: ONDANSETRON INJ 2 MG/ML 2 ML VIAL IV STA (05:40)
[2017-10-23] MEDS ORDERED: HYDROmorphone INJ 0.5 MG/0.5 ML SYR IV STA ×2 (05:40→06:46)
--- NOTE | 2017-10-23 05:41 | EMERGENCY ROOM VISIT NOTE ---
History Report prepared by Nichelle: Paula Mcghee Under the Supervision of: Dr. Rosario Khanna D.O. First contact with patient: 05:32 Chief Complaint: ABDOMINAL PAIN Stated Complaint: EPIGASTRIC PAIN History of Present Illness The patient is an 87 year old female who presents to the Emergency Room with complaints of persistent sharp epigastric pain that began about 2 hours prior to arrival. She rates her discomfort as a 10/10 in severity. The patient states that she was awaken from her sleep due to a sharp pain in her abdomen that radiates to her chest, noting it does not feel like heart burn. She reports sweating and nausea, but denies any vomiting or diarrhea. The patient states that she did not feel good all day yesterday, but felt fine when she went to sleep. She notes that she lives alone and denies being near anyone with similar symptoms. The patient receives chemotherapy currently and has a a port in her right upper extremity. Source of History: patient Onset: about 2 hours prior to arrival Position: other (epigastrium) Symptom Intensity: severe & 10/10 Quality: other (epigastric pain) Timing: other (persistent) Associated Symptoms: + nausea, No vomiting, No diarrhea Note: Associated symptom includes: sweating. Review of Systems See HPI for pertinent positives & negatives. A total of 10 systems reviewed and were otherwise negative. Past Medical & Surgical Medical Problems: (1) Benign hypertension (2) Duodenal perforation (3) Hypertension (4) Peritonitis (acute) generalized (5) Thoracia and Lumar kyphoplasty Family History Patient reports no known family medical history. No pertinent family history. Social History Smoking Status: Never Smoker Alcohol Use: none Drug Use: none Housing Status: lives alone Current/Historical Medications Scheduled Alendronate Sodium (Fosamax), 70 MG PO WK B-Complex Vitamins (Vitamin B Complex), 1 TAB PO DAILY AT 1200 Biotin (Biotin), 1 TAB PO QD@1200 Calcium Carbonate-Vitamin D W/ (Caltrate 600 Plus), 1 TAB PO QD@1200 Cholecalciferol (Vitamin D3), 1,000 UNITS PO DAILY AT 1200 Cyanocobalamin (B-12), 1,000 MCG PO QAM Ferrous Sulfate (Kp Ferrous Sulfate), 325 MG PO DAILY AT 1200 Hezkcfmadeh-Lzeniejrujt-Lsj C- (Glucosamine Chondroitin), 2 TAB PO QD@1200 Hydrochlorothiazide (Hctz), 25 MG PO WITH LUNCH Levothyroxine Sodium (Levothyroxine Sodium), 1 TAB PO QAM Meloxicam (Mobic), 15 MG PO QAM Multiple Vitamins W/ Minerals (Centrum Silver Adult 50+), 1 TAB PO WITH LUNCH Prednisone (Prednisone), 20 MG PO DIRECTED Propranolol (Inderal), 20 MG PO QAM Sennosides-Docusate Sodium (Stool Softener), 1 TAB DAILY PRN Zinc Gluconate (Zinc), 1 TAB PO QD@1200 Scheduled PRN Lorazepam (Ativan), 0.25-0.5 MG PO TID PRN for Anxiety Allergies Coded Allergies: No Known Allergies (Verified , 10/23/17) Physical Exam Vital Signs Date Time Temp Pulse Resp B/P (MAP) Pulse Ox O2 Delivery O2 Flow Rate FiO2 10/23/17 11:05 110 24 129/76 90 Oxymask 10 10/23/17 10:57 36.3 110 22 114/84 89 Oxymask 10 10/23/17 08:30 112 26 133/80 92 Nasal Cannula 4.0 10/23/17 07:30 129 24 140/73 91 Nasal Cannula 4.0 10/23/17 07:00 110 24 128/73 93 Nasal Cannula 4.0 10/23/17 06:15 107 20 148/71 93 Nasal Cannula 4.0 10/23/17 05:56 113 10/23/17 05:36 36.5 110 24 139/78 91 Nasal Cannula 4.0 Physical Exam General: Patient is pale and diaphoretic. HEENT: Head - normocephalic and atraumatic Pupils are equal, round, and reactive to light. Extraocular eye muscles are intact, and sclera are anicteric. Nose - moist nasal mucosa without discharge. Mouth - moist buccal mucosa. Oropharynx is nonerythematous and there is no tonsillar exudate or edema noted. Neck: Supple; no JVD, nuchal rigidity, cervical lymphadenopathy, or auscultated bruits. Heart: Regular rate and rhythm. There is a normal S1 and S2 with no murmurs, clicks, or gallops appreciated. Lungs: Clear to auscultation bilaterally with no wheezes, rales, or rhonchi. Abdomen: Distended and significant pain with palpation in the epigastrium. Good bowel sounds. There are no palpable pulsatile masses or hepatosplenomegaly. There is moderate guarding, rigidity, or rebound noted. Extremities: No evidence of cyanosis, clubbing, or edema. There are easily palpable peripheral pulses. Skin: warm and dry with good turgor and no rashes. Medical Decision & Procedures ER Provider Diagnostic Interpretation: Radiology results as stated below per my review and the radiologist's interpretation: CHEST COMBO ANGIO DISSECTION CT DOSE: 706.67 mGy.cm HISTORY: 87 years-old Female presents with acute shortness of breath and epigastric abdominal pain. History of lymphoma. TECHNIQUE: Multiple CTA images of the chest were obtained both with and without the use 116 ml Optiray 320 IV contrast. Coronal and sagittal MIPS were obtained from the axial data set and were submitted for review. A dose lowering technique was utilized adhering to the principles of ALARA. COMPARISON: Chest radiograph of same day, PET CT 08/30/2017 FINDINGS: CTA: The noncontrast scan demonstrates no evidence of intramural hematoma. Heart is mildly enlarged without pericardial effusion. Three-vessel distribution of coronary arterial disease is noted. No aortic aneurysm or dissection. Moderate atherosclerotic plaquing of the thoracic aorta and proximal great vessels. 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 There is focal kinking of the right subclavian artery as seen on image 44 series 7 causing approximately 50% luminal narrowing. Additional focal kinking of the right since leaving artery is noted as it passes over the right first rib, image 48 series 7 resulting in approximately 50% narrowing. Atherosclerotic plaquing is seen at the origin of the left vertebral artery without high-grade stenosis. There is dilation of the main pulmonary artery measuring 3.3 cm transversely suggesting pulmonary arterial hypertension. Pulmonary arterial tree is opacified to level of the proximal subsegmental branches. Pulmonary emboli are noted involving the distal segmental and subsegmental branches of the right lower lobe nicely seen on image 99 and 109 of series 7 and also within the left upper lobe, image 85 series 7 and left lower lobe, image 121 series 7. No central pulmonary identified. CT CHEST: Heterogeneous thyroid. Lower left neck adenopathy is better seen on comparison PET CT. Mildly enlarged 11 mm precarinal lymph node is noted. 10 mm subcarinal lymph node appears unchanged. Bilateral axillary chain lymph nodes are seen with 11 mm left subpectoral lymph node seen on image 97 series 4, decreased in size from comparison. Index 8 mm lymph node on image 117 series 4 previously measured 1.8 cm. Degenerative changes noted about the shoulders and spine. Calcific tendinosis about the left shoulder. Multiple remote compression deformities with prior vertebral plasty noted. No pneumothorax or pleural effusion. Hazy subsegmental reticular and groundglass opacities suggest atelectasis. No evidence of large pulmonary infarction. Areas of mosaic attenuation bilaterally suggest air-trapping. No large pulmonary nodules or masses identified. Calcified granuloma the left lower lobe, image 103 series 7. Central airways are patent. Mild bronchial wall thickening of the lung bases bilaterally. Large amount of pneumoperitoneum is seen within the upper abdomen. Trace upper abdominal ascites. Cholelithiasis. Soft tissues are unremarkable. IMPRESSION: 1. Multiple bilateral segmental and subsegmental pulmonary emboli are noted involving the lower lobes and left upper lobe. Mild dilation of the main pulmonary artery suggests pulmonary arterial hypertension. 2. Large amount of pneumoperitoneum in the upper abdomen suggests perforated viscus. Additionally, there is a mild amount of upper abdominal ascites. Surgical consultation advised. 3. Cholelithiasis. 4. Decreased adenopathy about the chest from comparison PET CT 08/30/2017. 5. No aortic aneurysm or dissection. These findings were discussed with Dr. Khanna on 10/23/2017 at 7:10 AM The above report was generated using voice recognition software. It may contain grammatical, syntax or spelling errors. Electronically signed by: Damon Denney M.D. 10/23/2017 7:21 AM Dictated Date/Time: 10/23/2017 7:00 AM Laboratory Results 10/23/17 05:45 Red Blood Count 3.39, Mean Corpuscular Volume 97.9, Mean Corpuscular Hemoglobin 31.9, Mean Corpuscular Hemoglobin Concent 32.5, Mean Platelet Volume 9.7, Neutrophils (%) (Auto) 91.4, Lymphocytes (%) (Auto) 0.8, Monocytes (%) (Auto) 0.9, Eosinophils (%) (Auto) 0.0, Basophils (%) (Auto) 0.2, Neutrophils # (Auto) 92.97, Lymphocytes # (Auto) 0.81, Monocytes # (Auto) 0.93, Eosinophils # (Auto) 0.03, Basophils # (Auto) 0.20 10/23/17 05:45 Test 10/23/17 05:45 10/23/17 05:53 White Blood Count 101.81 K/uL (4.8-10.8) Red Blood Count 3.39 M/uL (4.2-5.4) Hemoglobin 10.8 g/dL (12.0-16.0) Hematocrit 33.2 % (37-47) Mean Corpuscular Volume 97.9 fL (80-100) Mean Corpuscular Hemoglobin 31.9 pg (25-34) Mean Corpuscular Hemoglobin Concent 32.5 g/dl (32-36) Platelet Count 313 K/uL (130-400) Mean Platelet Volume 9.7 fL (7.4-10.4) Neutrophils (%) (Auto) 91.4 % Lymphocytes (%) (Auto) 0.8 % Monocytes (%) (Auto) 0.9 % Eosinophils (%) (Auto) 0.0 % Basophils (%) (Auto) 0.2 % Neutrophils # (Auto) 92.97 K/uL (1.4-6.5) Lymphocytes # (Auto) 0.81 K/uL (1.2-3.4) Monocytes # (Auto) 0.93 K/uL (0.11-0.59) Eosinophils # (Auto) 0.03 K/uL (0-0.5) Basophils # (Auto) 0.20 K/uL (0-0.2) RDW Standard Deviation 58.2 fL (36.4-46.3) RDW Coefficient of Variation 16.4 % (11.5-14.5) Immature Granulocyte % (Auto) 6.7 % Immature Granulocyte # (Auto) 6.87 K/uL (0.00-0.02) Platelet Estimate NORMAL Est Creatinine Clear Calc Drug Dose 27.9 ml/min Estimated GFR () 63.7 Estimated GFR (Non- 54.9 BUN/Creatinine Ratio 25.8 (10-20) Calcium Level 8.9 mg/dl (8.5-10.1) Total Bilirubin 0.5 mg/dl (0.2-1) Direct Bilirubin 0.2 mg/dl (0-0.2) Aspartate Amino Transf (AST/SGOT) 18 U/L (15-37) Alanine Aminotransferase (ALT/SGPT) 25 U/L (12-78) Alkaline Phosphatase 90 U/L (45-117) Troponin I 0.022 ng/ml (0-0.045) Total Protein 7.0 gm/dl (6.4-8.2) Albumin 3.4 gm/dl (3.4-5.0) Lipase 1053 U/L (73-393) Bedside Hemoglobin 11.2 g/dl (12.0-16.0) Bedside Hematocrit 33 % (37-47) Bedside Sodium 142 mEq/L (135-144) Bedside Potassium 3.6 mEq/L (3.3-5.0) Bedside Chloride 101 mEq/L (101-112) Bedside Total CO2 27 mEq/l (24-31) Anion Gap 19.0 mmol/L (16-25) Bedside Blood Urea Nitrogen 26 mg/dl (7-18) Bedside Creatinine 0.8 mg/dl (0.6-1.3) Bedside Glucose (other) 130 mg/dl (70-99) Bedside Ionized Calcium (Marian) 1.23 mmol/l (1.12-1.32) Laboratory results per my review. Medications Administered Medications (Trade) Dose Ordered Sig/Madonna Route Start Time Stop Time Status Last Admin Dose Admin Hydromorphone HCl (Dilaudid Inj) 0.5 mg NOW STAT IV 10/23/17 05:40 10/23/17 05:43 DC 10/23/17 05:47 0.5 MG Ondansetron HCl (Zofran Inj) 4 mg NOW STAT IV 10/23/17 05:40 10/23/17 05:43 DC 10/23/17 05:47 4 MG Hydromorphone HCl (Dilaudid Inj) 0.5 mg NOW STAT IV 10/23/17 06:46 10/23/17 06:47 DC 10/23/17 06:57 0.5 MG Sodium Chloride 1,000 ml @ 250 mls/hr Q4H STAT IV 10/23/17 07:24 10/23/17 11:23 DC 10/23/17 07:30 250 MLS/HR Piperacillin Sod/ Tazobactam Sod (Zosyn Iv) 4.5 gm NOW STAT IV 10/23/17 07:24 10/23/17 07:27 DC 10/23/17 07:30 4.5 GM Vancomycin HCl (Vancomycin 1gm/ 270ml Nss) 1 gm STK-MED ONCE .ROUTE 10/23/17 09:09 10/23/17 09:10 DC 10/23/17 09:27 1 GM Vancomycin HCl (Vancomycin Inj) 50 mg STK-MED ONCE .ROUTE 10/23/17 10:01 10/23/17 10:02 DC 10/23/17 10:04 50 MG Bupivacaine HCl (Marcaine 0.5% MPF Inj) 20 ml ONE ONCE INJ 10/23/17 10:42 10/23/17 10:43 DC 10/23/17 10:42 20 ML Lidocaine HCl (Xylocaine 1% MPF) 20 ml ONE ONCE INJ 10/23/17 10:42 10/23/17 10:43 DC 10/23/17 10:42 20 ML Lactated Ringer's 1,000 ml @ 100 mls/hr Q10H IV 10/23/17 10:57 11/22/17 10:56 10/23/17 21:23 100 MLS/HR Morphine Sulfate (MoRPHine SULFATE INJ) 2 mg Q3HWA PRN IV 10/23/17 11:00 11/06/17 10:59 10/24/17 00:01 2 MG Procedure 0540: Ordered Zofran Inj 4mg IV and Dilaudid Inj 0.5mg IV. 0646: Ordered Dilaudid Inj 0.5mg IV. 0724: Ordered Zosyn Iv 4.5gm IV and Sodium Chloride 1000ml @ 250mls/hr IV. ECG Per My Interpretation Indication: abdominal pain Rate (beats per minute): 114 Rhythm: sinus tachycardia Findings: no acute ischemic change, no ectopy ED Course 0532: Past medical records reviewed. The patient was evaluated in room B11. A complete history and physical exam was performed. IV lock was established. 0540: Ordered Zofran Inj 4mg IV and Dilaudid Inj 0.5mg IV. 0600: Ordered Ioversol 100ml IV. 0646: Ordered Dilaudid Inj 0.5mg IV. 0711: Discuss[place] the patient's [place] [facility] [place] The patient has free air in the abdomen and bilateral pulmonary emboli. 0724: Discussed the patient's case with Lianna Beverly, alexis. The patient will be evaluated for further management. Ordered Zosyn Iv 4.5gm IV and Sodium Chloride 1000ml @ 250mls/hr IV. 0728: I reevaluated the patient, who was resting. Updated the patient on test findings. She verbalized complete understanding and agreement of the treatment plan. Medical Decision The patient is a 87 year old female who presents to the ED with epigastric pain. Differential diagnosis includes small bowel obstruction, pancreatitis, perforated viscus, aortic dissection, SMA syndrome, colitis, and cholecystitis. Laboratory results showed: WBC count of [id number], hemiglobin of 10.8, creatinine of 0.9, glucose of 124, lipase of 1053, and LFT's are normal. This is an 87-year-old female patient with history of lymphoma who presents to the emergency department with a sudden severe onset of epigastric abdominal pain. The patient was noted to be hypoxic by EMS on initial physical exam. O2 saturations remained stable here on supplemental oxygen. CT scan of the chest/ abdomen/pelvis reveals evidence of free air under the diaphragm consistent with a perforated viscus as well as bilateral pulmonary emboli. The patient was tachycardic on initial exam. Her pain was controlled with IV Dilaudid. She was started on IV Zosyn for the perforated bowel. I discussed the case with the surgical PA and they will evaluate for further management. Medication Reconcilliation Current Medication List: was personally reviewed by me Blood Pressure Screening Patient's blood pressure: Normal blood pressure Blood pressure disposition: Did not require urgent referral Consults Time Called: 07 Consulting Physician: Dr. Damon Denney, Radiology Returned Call: [phone] Discussed the patient's case [place] Dr[place]Josh Denney[place] [facility] [place] The patient has free air in the abdomen and bilateral pulmonary emboli. Additional Consults: Time Called: 723 Consulted Physician: Lianna Beverly Returned Call: 07 Additional Comments: Discussed the patient's case with Lianna Beverly, surgery. The patient will be evaluated for further management. Impression Primary Impression: Perforated viscus Additional Impression: Bilateral pulmonary embolism Critical Care I have personally spent greater than 30 minutes of critical care time in the direct management of this patient. This includes bedside care, interpretation of diagnostic studies, and testing, discussion with consultants, patient, and family members, and other required patient management activities. This 30 minutes is in excess of all separately billable procedures. Scribe Attestation The scribe's documentation has been prepared under my direction and personally reviewed by me in its entirety. I confirm that the note above accurately reflects all work, treatment, procedures, and medical decision making performed by me. Departure Information Dispostion Being Evaluated By Surgeon Referrals Delio Carter M.D. (PCP) Forms HOME CARE DOCUMENTATION FORM, IMPORTANT VISIT INFORMATION Patient Instructions My [facility] Problem Qualifiers
[2017-10-23] MEDS ORDERED: OPTIRAY 320 IV PRN (06:00)
[2017-10-23 06:05] LABS: ISTAT CREATININE 0.8 mg/dl (0.6-1.3); ISTAT IONIZED CALCIUM 1.23 mmol/l (1.12-1.32); ISTAT POTASSIUM 3.6 mEq/L (3.3-5.0)
[2017-10-23 06:11] LABS: HEMATOCRIT 33.2 % (37-47); HEMOGLOBIN 10.8 g/dL (12.0-16.0); MEAN CELL VOLUME 97.9 fL (80-100); MEAN CORPUSCULAR HEMOGLOBIN 31.9 pg (25-34); MEAN CORPUSCULAR HGB CONC 32.5 g/dl (32-36); RED CELL DISTRIBUTION WIDTH CV 16.4 % (11.5-14.5); RED CELL DISTRIBUTION WIDTH SD 58.2 fL (36.4-46.3); WHITE BLOOD COUNT 101.81 K/uL (4.8-10.8)
[2017-10-23 06:13] LABS: ALBUMIN 3.4 gm/dl (3.4-5.0); CALCIUM 8.9 mg/dl (8.5-10.1); CREATININE 0.94 mg/dl (0.60-1.20); POTASSIUM 3.6 mmol/L (3.5-5.1)
[2017-10-23] MEDS ORDERED: CYAN1TAB4 PO (06:13)
[2017-10-23] MEDS ORDERED: PRD20 PO (06:13)
[2017-10-23] MEDS ORDERED: HYDR-5688 PO (06:13)
[2017-10-23 06:23] LABS: MEAN PLATELET VOLUME 9.7 fL (7.4-10.4); PLATELET COUNT 313 K/uL (130-400)
[2017-10-23 06:25] LABS: BASO % 0.2 %; EOS ABS # 0.03 K/uL (0-0.5); IG# 6.87 K/uL (0.00-0.02); LYMPH % 0.8 %; LYMPH ABS # 0.81 K/uL (1.2-3.4); MONO % 0.9 %; MONO ABS # 0.93 K/uL (0.11-0.59); NEUT % 91.4 %; NEUT ABS # 92.97 K/uL (1.4-6.5)
[2017-10-23] MEDS ORDERED: CHOL1CAP57 PO (06:36)
[2017-10-23] MEDS ORDERED: B-COTAB18 PO (06:36)
[2017-10-23] MEDS ORDERED: FERR1TAB13 PO (06:36)
--- NOTE | 2017-10-23 07:22 | DIAGNOSTIC IMAGING REPORT ---
CHEST COMBO ANGIO DISSECTION CT DOSE: 706.67 mGy.cm HISTORY: 87 years-old Female presents with acute shortness of breath and epigastric abdominal pain. History of lymphoma. TECHNIQUE: Multiple CTA images of the chest were obtained both with and without the use 116 ml Optiray 320 IV contrast. Coronal and sagittal MIPS were obtained from the axial data set and were submitted for review. A dose lowering technique was utilized adhering to the principles of ALARA. COMPARISON: Chest radiograph of same day, PET CT 08/30/2017 FINDINGS: CTA: The noncontrast scan demonstrates no evidence of intramural hematoma. Heart is mildly enlarged without pericardial effusion. Three-vessel distribution of coronary arterial disease is noted. No aortic aneurysm or dissection. Moderate atherosclerotic plaquing of the thoracic aorta and proximal great vessels. 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 There is focal kinking of the right subclavian artery as seen on image 44 series 7 causing approximately 50% luminal narrowing. Additional focal kinking of the right since leaving artery is noted as it passes over the right first rib, image 48 series 7 resulting in approximately 50% narrowing. Atherosclerotic plaquing is seen at the origin of the left vertebral artery without high-grade stenosis. There is dilation of the main pulmonary artery measuring 3.3 cm transversely suggesting pulmonary arterial hypertension. Pulmonary arterial tree is opacified to level of the proximal subsegmental branches. Pulmonary emboli are noted involving the distal segmental and subsegmental branches of the right lower lobe nicely seen on image 99 and 109 of series 7 and also within the left upper lobe, image 85 series 7 and left lower lobe, image 121 series 7. No central pulmonary identified. CT CHEST: Heterogeneous thyroid. Lower left neck adenopathy is better seen on comparison PET CT. Mildly enlarged 11 mm precarinal lymph node is noted. 10 mm subcarinal lymph node appears unchanged. Bilateral axillary chain lymph nodes are seen with 11 mm left subpectoral lymph node seen on image 97 series 4, decreased in size from comparison. Index 8 mm lymph node on image 117 series 4 previously measured 1.8 cm. Degenerative changes noted about the shoulders and spine. Calcific tendinosis about the left shoulder. Multiple remote compression deformities with prior vertebral plasty noted. No pneumothorax or pleural effusion. Hazy subsegmental reticular and groundglass opacities suggest atelectasis. No evidence of large pulmonary infarction. Areas of mosaic attenuation bilaterally suggest air-trapping. No large pulmonary nodules or masses identified. Calcified granuloma the left lower lobe, image 103 series 7. Central airways are patent. Mild bronchial wall thickening of the lung bases bilaterally. Large amount of pneumoperitoneum is seen within the upper abdomen. Trace upper abdominal ascites. Cholelithiasis. Soft tissues are unremarkable. IMPRESSION: 1. Multiple bilateral segmental and subsegmental pulmonary emboli are noted involving the lower lobes and left upper lobe. Mild dilation of the main pulmonary artery suggests pulmonary arterial hypertension. 2. Large amount of pneumoperitoneum in the upper abdomen suggests perforated viscus. Additionally, there is a mild amount of upper abdominal ascites. Surgical consultation advised. 3. Cholelithiasis. 4. Decreased adenopathy about the chest from comparison PET CT 08/30/2017. 5. No aortic aneurysm or dissection. These findings were discussed with Dr. Khanna on 10/23/2017 at 7:10 AM The above report was generated using voice recognition software. It may contain grammatical, syntax or spelling errors. Electronically signed by: Damon Denney M.D. 10/23/2017 7:21 AM Dictated Date/Time: 10/23/2017 7:00 AM
[2017-10-23] MEDS ORDERED: PIPERACILLIN/TAZOBACTAM 4.5 GM/100ML D5W IV STA (07:24)
[2017-10-23] MEDS ORDERED: SODIUM CHLORIDE 0.9% 1000ML 1,000 ML IV STA (07:24)
[2017-10-23] MEDS ORDERED: ROCURONIUM BROMIDE 10 MG/ML 5 ML VIAL IV ONE (08:38)
[2017-10-23] MEDS ORDERED: SUCCINYLCHOLINE CHLORIDE 20 MG/ML 10 ML VIAL IV ONE (08:38)
[2017-10-23] MEDS ORDERED: FENTANYL CITRATE INJ 50 MCG/1 ML 2 ML VIAL ONE ×2 (08:39→10:07)
--- NOTE | 2017-10-23 08:51 | History and Physical ---
History & Physical Date & Time of Service: Oct 23, 2017 at 08:41 Chief Complaint: Epigastric Pain Primary Care Physician: Delio Carter M.D. History of Present Illness Source: patient Collette is a pleasant 87-year-old female presented to the emergency room today with complaint of sudden abdominal pain that woke her up at 4 AM. She states she was not feeling well yesterday and then felt well before bed. Had a bowl of fruit with no issues. Suddenly woke up with epigastric abdominal pain and shortness of breath. Associated chills sweats. She has history of lymphoma is currently on chemotherapy. Has an 8 port on the right chest. Last chemotherapy was on Monday. Patient's neighbor is present in the room and states she was complaining of some mild shortness of breath that started on . No history of previous blood clots or pulmonary emboli. No history of blood thinning agents. No history of previous abdominal surgery. Patient's workup in the ER included a CTA of the chest which showed bilateral pulmonary emboli no central emboli. Her white count is 100,000. Hemoglobin and hematocrit stable at 11.2 and 33.8. Platelet count within normal limits at 300,000. Family History Patient reports no known family medical history. Social History Smoking Status: Never Smoker Drug Use: none Immunizations History of Influenza Vaccine: No History of Tetanus Vaccine?: Yes History of Pneumococcal: Yes History of Hepatitis B Vaccine: No Multi-Drug Resistant Organisms History of MDRO: No Allergies Coded Allergies: No Known Allergies (Verified , 10/23/17) Home Medications Scheduled Alendronate Sodium (Fosamax), 70 MG PO WK B-Complex Vitamins (Vitamin B Complex), 1 TAB PO DAILY AT 1200 Biotin (Biotin), 1 TAB PO QD@1200 Calcium Carbonate-Vitamin D W/ (Caltrate 600 Plus), 1 TAB PO QD@1200 Cholecalciferol (Vitamin D3), 1,000 UNITS PO DAILY AT 1200 Cyanocobalamin (B-12), 1,000 MCG PO QAM Ferrous Sulfate (Kp Ferrous Sulfate), 325 MG PO DAILY AT 1200 Esjcwttfbtk-Jkbhtcgpemb-Tyo C- (Glucosamine Chondroitin), 2 TAB PO QD@1200 Hydrochlorothiazide (Hctz), 25 MG PO WITH LUNCH Levothyroxine Sodium (Levothyroxine Sodium), 1 TAB PO QAM Meloxicam (Mobic), 15 MG PO QAM Multiple Vitamins W/ Minerals (Centrum Silver Adult 50+), 1 TAB PO WITH LUNCH Prednisone (Prednisone), 20 MG PO DIRECTED Propranolol (Inderal), 20 MG PO QAM Sennosides-Docusate Sodium (Stool Softener), 1 TAB DAILY PRN Zinc Gluconate (Zinc), 1 TAB PO QD@1200 Scheduled PRN Lorazepam (Ativan), 0.25-0.5 MG PO TID PRN for Anxiety Review of Systems Constitutional: + chills, + sweats, No fever Respiratory: + shortness of breath Cardiovascular: + chest pain Abdomen: + pain, + nausea, No vomiting, No diarrhea, No constipation Genitourinary - Female: + urinary incontinence, No dysuria, No urinary frequency, No urinary urgency Endocrine: No fatigue Integumentary: No rash Physical Exam Vital Signs Date Time Temp Pulse Resp B/P (MAP) Pulse Ox O2 Delivery O2 Flow Rate FiO2 10/23/17 07:30 129 24 140/73 91 Nasal Cannula 4.0 10/23/17 07:00 110 24 128/73 93 Nasal Cannula 4.0 10/23/17 06:15 107 20 148/71 93 Nasal Cannula 4.0 10/23/17 05:56 113 10/23/17 05:36 36.5 110 24 139/78 91 Nasal Cannula 4.0 General Appearance: + moderate distress Head: normocephalic, atraumatic Eyes: sclerae normal ENT: hearing grossly normal Neck: trachea midline Respiratory/Chest: normal breath sounds, no respiratory distress, no accessory muscle use Cardiovascular: no murmur, + tachycardia Abdomen/GI: + tenderness (Generalized tenderness with guarding, peritonitis, rigidity), + distended, + guarding Back: normal inspection Extremities/Musculoskelatal: normal inspection Neurologic/Psych: alert, normal mood/affect, oriented x 3 Skin: no rash, + pallor Diagnostics Laboratory Results Results Past 24 Hours Test 10/23/17 05:45 10/23/17 05:53 Range/Units White Blood Count 101.81 4.8-10.8 K/uL Red Blood Count 3.39 4.2-5.4 M/uL Hemoglobin 10.8 12.0-16.0 g/dL Hematocrit 33.2 37-47 % Mean Corpuscular Volume 97.9 80-100 fL Mean Corpuscular Hemoglobin 31.9 25-34 pg Mean Corpuscular Hemoglobin Concent 32.5 32-36 g/dl Platelet Count 313 130-400 K/uL Mean Platelet Volume 9.7 7.4-10.4 fL Neutrophils (%) (Auto) 91.4 % Lymphocytes (%) (Auto) 0.8 % Monocytes (%) (Auto) 0.9 % Eosinophils (%) (Auto) 0.0 % Basophils (%) (Auto) 0.2 % Neutrophils # (Auto) 92.97 1.4-6.5 K/uL Lymphocytes # (Auto) 0.81 1.2-3.4 K/uL Monocytes # (Auto) 0.93 0.11-0.59 K/uL Eosinophils # (Auto) 0.03 0-0.5 K/uL Basophils # (Auto) 0.20 0-0.2 K/uL RDW Standard Deviation 58.2 36.4-46.3 fL RDW Coefficient of Variation 16.4 11.5-14.5 % Immature Granulocyte % (Auto) 6.7 % Immature Granulocyte # (Auto) 6.87 0.00-0.02 K/uL Platelet Estimate NORMAL Sodium Level 140 136-145 mmol/L Potassium Level 3.6 3.5-5.1 mmol/L Chloride Level 105 98-107 mmol/L Carbon Dioxide Level 28 21-32 mmol/L Anion Gap 7.0 19.0 16-25 mmol/L Blood Urea Nitrogen 24 7-18 mg/dl Creatinine 0.94 0.60-1.20 mg/dl Est Creatinine Clear Calc Drug Dose 27.9 ml/min Estimated GFR () 63.7 Estimated GFR (Non- 54.9 BUN/Creatinine Ratio 25.8 10-20 Random Glucose 124 70-99 mg/dl Calcium Level 8.9 8.5-10.1 mg/dl Total Bilirubin 0.5 0.2-1 mg/dl Direct Bilirubin 0.2 0-0.2 mg/dl Aspartate Amino Transf (AST/SGOT) 18 15-37 U/L Alanine Aminotransferase (ALT/SGPT) 25 12-78 U/L Alkaline Phosphatase 90 45-117 U/L Troponin I 0.022 0-0.045 ng/ml Total Protein 7.0 6.4-8.2 gm/dl Albumin 3.4 3.4-5.0 gm/dl Lipase 1053 73-393 U/L Bedside Hemoglobin 11.2 12.0-16.0 g/dl Bedside Hematocrit 33 37-47 % Bedside Sodium 142 135-144 mEq/L Bedside Potassium 3.6 3.3-5.0 mEq/L Bedside Chloride 101 101-112 mEq/L Bedside Total CO2 27 24-31 mEq/l Bedside Blood Urea Nitrogen 26 7-18 mg/dl Bedside Creatinine 0.8 0.6-1.3 mg/dl Bedside Glucose (other) 130 70-99 mg/dl Bedside Ionized Calcium (Marian) 1.23 1.12-1.32 mmol/l Diagnostic Radiology CHEST COMBO ANGIO DISSECTION CT DOSE: 706.67 mGy.cm HISTORY: 87 years-old Female presents with acute shortness of breath and epigastric abdominal pain. History of lymphoma. TECHNIQUE: Multiple CTA images of the chest were obtained both with and without the use 116 ml Optiray 320 IV contrast. Coronal and sagittal MIPS were obtained from the axial data set and were submitted for review. A dose lowering technique was utilized adhering to the principles of ALARA. COMPARISON: Chest radiograph of same day, PET CT 08/30/2017 FINDINGS: CTA: The noncontrast scan demonstrates no evidence of intramural hematoma. Heart is mildly enlarged without pericardial effusion. Three-vessel distribution of coronary arterial disease is noted. No aortic aneurysm or dissection. Moderate atherosclerotic plaquing of the thoracic aorta and proximal great vessels. 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 There is focal kinking of the right subclavian artery as seen on image 44 series 7 causing approximately 50% luminal narrowing. Additional focal kinking of the right since leaving artery is noted as it passes over the right first rib, image 48 series 7 resulting in approximately 50% narrowing. Atherosclerotic plaquing is seen at the origin of the left vertebral artery without high-grade stenosis. There is dilation of the main pulmonary artery measuring 3.3 cm transversely suggesting pulmonary arterial hypertension. Pulmonary arterial tree is opacified to level of the proximal subsegmental branches. Pulmonary emboli are noted involving the distal segmental and subsegmental branches of the right lower lobe nicely seen on image 99 and 109 of series 7 and also within the left upper lobe, image 85 series 7 and left lower lobe, image 121 series 7. No central pulmonary identified. CT CHEST: Heterogeneous thyroid. Lower left neck adenopathy is better seen on comparison PET CT. Mildly enlarged 11 mm precarinal lymph node is noted. 10 mm subcarinal lymph node appears unchanged. Bilateral axillary chain lymph nodes are seen with 11 mm left subpectoral lymph node seen on image 97 series 4, decreased in size from comparison. Index 8 mm lymph node on image 117 series 4 previously measured 1.8 cm. Degenerative changes noted about the shoulders and spine. Calcific tendinosis about the left shoulder. Multiple remote compression deformities with prior vertebral plasty noted. No pneumothorax or pleural effusion. Hazy subsegmental reticular and groundglass opacities suggest atelectasis. No evidence of large pulmonary infarction. Areas of mosaic attenuation bilaterally suggest air-trapping. No large pulmonary nodules or masses identified. Calcified granuloma the left lower lobe, image 103 series 7. Central airways are patent. Mild bronchial wall thickening of the lung bases bilaterally. Large amount of pneumoperitoneum is seen within the upper abdomen. Trace upper abdominal ascites. Cholelithiasis. Soft tissues are unremarkable. IMPRESSION: 1. Multiple bilateral segmental and subsegmental pulmonary emboli are noted involving the lower lobes and left upper lobe. Mild dilation of the main pulmonary artery suggests pulmonary arterial hypertension. 2. Large amount of pneumoperitoneum in the upper abdomen suggests perforated viscus. Additionally, there is a mild amount of upper abdominal ascites. Surgical consultation advised. 3. Cholelithiasis. 4. Decreased adenopathy about the chest from comparison PET CT 08/30/2017. 5. No aortic aneurysm or dissection. EKG Sinus Tachycardia with PVCs Impression Assessment and Plan 87-year-old female presented to the emergency room with sudden abdominal pain. CTA showing bilateral pulmonary emboli with upper abdominal free air and ascites concerning for perforation. History of lymphoma currently on chemotherapy. Abdominal exam shows distended abdomen, rigidity, and peritonitis. White count elevated at 100,000. She was hypotensive on admission. Plan Will obtain stat CT without contrast of the abdomen and pelvis. Plan to take patient back to the operating room for emergent exploratory laparotomy possible bowel resection and possible ostomy. Procedure was discussed with patient her neighbor and her niece. Risks of the procedure including bleeding infection, injury to surrounding organs tissue, anastomosis leak, cardiopulmonary complications, sepsis, multiorgan failure, including . Patient understood these risks and informed consent obtained. Patient was started on IV fluids and IV Zosyn. Patient will go to ICU postoperatively. Dr. Payne has seen and examined this patient, agrees with above.
--- NOTE | 2017-10-23 08:57 | DIAGNOSTIC IMAGING REPORT ---
ABD/PELVIS NO IV OR ORAL CONT CLINICAL HISTORY: 87 years-old Female presenting with severe epigastric pain, pulmonary emboli, pneumoperitoneum, history of large B-cell lymphoma. TECHNIQUE: Multidetector CT of the abdomen and pelvis was performed without the use of intravenous contrast. IV contrast: None. A dose lowering technique was used consistent with the principles of ALARA (as low as reasonably achievable). COMPARISON: CT from 08/17/2017, CTA chest from 10/23/2017, and PET/CT from 08/30/2017. CT DOSE (mGy.cm): The estimated cumulative dose is 690.12 mGy.cm. FINDINGS: [employer] Supervisor topogram: Evidence of kyphoplasty at multiple levels. Excreted contrast in the urinary bladder. Lung bases: Increased bibasilar peribronchovascular and dependent consolidation in the bilateral lower lobes. Trace pleural effusions may be present. Partially visualized central venous catheter tip in the SVC. Coronary artery calcification. Normal heart size. No pericardial effusion. Liver: Normal morphology. Normal density. Periportal edema may be present. Biliary: No gross biliary ductal dilatation allowing for noncontrast technique. Gallbladder is distended with gallstones. Allowing for noncontrast technique, mild gallbladder wall thickening may be present. Pancreas: Normal noncontrast appearance. Spleen: Normal noncontrast appearance. Adrenal glands: Nodular thickening of the adrenal glands, nonspecific. Kidneys and ureters: Excreted contrast in the urinary collecting systems. Normal noncontrast appearance of the kidneys apart from a suspected cyst at the lower pole the left kidney. No hydronephrosis. Distal ureters poorly evaluated. Bladder: Excreted contrast in the urinary bladder. Minimal layering debris may be present near the right trigone (series 3 image 323). A pessary is in place. Pelvic organs: Poorly evaluated. Bowel: Diverticulosis of the sigmoid colon. Mild wall thickening of the splenic flexure. Small bowel and appendix poorly assessed secondary to hemoperitoneum. Perienteric inflammatory change suggested in the small bowel mesentery. Suspected perforation of the duodenal bulb (series 3 image 139) given the presence of adjacent extraluminal foci of gas. Extraluminal debris is also noted immediately anterior to the duodenal bulb. No bowel obstruction. Peritoneal cavity: Large pneumoperitoneum in the upper abdomen. High density fluid in the abdomen and pelvis, primarily in the pelvis, concerning for hemoperitoneum. Trace perihepatic more low-density ascites or unclotted blood. Lymph nodes: No gross lymphadenopathy allowing for noncontrast technique. Vasculature: Atherosclerosis of the normal caliber abdominal aorta. Abdominal wall: Extensive body wall edema. Musculoskeletal: Degenerative changes of the spine. Evidence of kyphoplasty at multiple levels and significant chronic deformities. Evidence of osteoporosis with endplate deformities at nearly every level. IMPRESSION: 1. Increasing pneumoperitoneum with suspected perforation of the duodenal bulb evidenced by periduodenal free gas and debris. 2. Significant hemoperitoneum. 3. Suspected perienteric inflammatory change and hepatic flexure wall thickening could be reactive to the perforation. 4. Increasing bibasilar consolidation, possibly atelectasis or developing pulmonary infarcts given known pulmonary emboli. 5. These findings were discussed with Dr. Vasquez Theodore by Dr. Shelton at 8:52 AM on 10/23/2017. Electronically signed by: Gregorio Shelton M.D. 10/23/2017 8:56 AM Dictated Date/Time: 10/23/2017 8:43 AM
--- NOTE | 2017-10-23 09:03 | Surgery Consultation ---
Consultation Date of Consultation: Oct 23, 2017. Attending Physician: History of Present Illness The patient is a 87 year old female who presents to the Emergency Room with complaints of persistent sharp epigastric pain that began about 2 hours prior to arrival. She rates her discomfort as a 10/10 in severity. The patient states that she was awaken from her sleep due to a sharp pain in her abdomen that radiates to her chest, noting it does not feel like heart burn. She reports sweating and nausea, but denies any vomiting or diarrhea. The patient states that she did not feel good all day yesterday, but felt fine when she went to sleep. She notes that she lives alone and denies being near anyone with similar symptoms. The patient receives chemotherapy currently and has a a port in her right upper extremity. I saw pt at ER, and I reviewed pt's H/P with pt and her family members, Past Medical/Surgical History Medical Problems: (1) Bilateral pulmonary embolism Status: Acute (2) Perforated bowel Status: Acute Family History Patient reports no known family medical history. Social History Smoking Status: Never Smoker Smokeless Tobacco Use: No Alcohol Use: none Drug Use: none Housing Status: lives alone Allergies Coded Allergies: No Known Allergies (Verified , 10/23/17) Home Medications Scheduled Alendronate Sodium (Fosamax), 70 MG PO WK B-Complex Vitamins (Vitamin B Complex), 1 TAB PO DAILY AT 1200 Biotin (Biotin), 1 TAB PO QD@1200 Calcium Carbonate-Vitamin D W/ (Caltrate 600 Plus), 1 TAB PO QD@1200 Cholecalciferol (Vitamin D3), 1,000 UNITS PO DAILY AT 1200 Cyanocobalamin (B-12), 1,000 MCG PO QAM Ferrous Sulfate (Kp Ferrous Sulfate), 325 MG PO DAILY AT 1200 Lwkdsvolrnj-Iqyaszjxhvy-Wss C- (Glucosamine Chondroitin), 2 TAB PO QD@1200 Hydrochlorothiazide (Hctz), 25 MG PO WITH LUNCH Levothyroxine Sodium (Levothyroxine Sodium), 1 TAB PO QAM Meloxicam (Mobic), 15 MG PO QAM Multiple Vitamins W/ Minerals (Centrum Silver Adult 50+), 1 TAB PO WITH LUNCH Prednisone (Prednisone), 20 MG PO DIRECTED Propranolol (Inderal), 20 MG PO QAM Sennosides-Docusate Sodium (Stool Softener), 1 TAB DAILY PRN Zinc Gluconate (Zinc), 1 TAB PO QD@1200 Scheduled PRN Lorazepam (Ativan), 0.25-0.5 MG PO TID PRN for Anxiety Current Inpatient Medications Current Inpatient Medications Medications (Trade) Dose Ordered Sig/Madonna Route Start Time Stop Time Status Last Admin Dose Admin Ioversol (Optiray 320) 100 ml UD PRN IV 10/23/17 06:00 10/27/17 05:59 Sodium Chloride 1,000 ml @ 250 mls/hr Q4H STAT IV 10/23/17 07:24 10/23/17 11:23 10/23/17 07:30 250 MLS/HR Review of Systems Constitutional: No fever, No chills, No sweats, No weight loss, No weakness, No fatigue, No problem reported Eyes: No worsening of vision, No eye pain, No redness, No discharge, No diplopia, No problem reported ENT: No hearing loss, No unusual epistaxis, No nasal symptoms, No sore throat, No tinnitus, No dental problems, No trouble swallowing, No problem reported Respiratory: + shortness of breath Cardiovascular: No chest pain, No orthopnea, No PND, No edema, No claudication , No palpitations, No problem reported Abdomen: + pain, + nausea Musculoskeletal: No joint pain, No muscle pain, No swelling, No calf pain, No problem reported Genitourinary - Female: No dysuria, No urinary frequency, No urinary urgency, No urinary incontinence, No urinary retention, No hematuria, No dysmenorrhea, No menorrhagia, No metrorrhagia, No rash, No vaginal bleeding, No vaginal discharge, No vaginal itching, No vulvodynia, No , No problem reported Neurologic: No memory loss, No paralysis, No weakness, No numbness/tingling, No vertigo, No balance problems, No problem reported Psychiatric: No depression symptoms, No anhedonism, No anxiety, No insomnia, No substance abuse, No problem reported Endocrine: No fatigue, No excessive thirst, No excessive urination, No problem reported Hematologic / Lymphatic: + problem reported (lymphoma) Physical Exam Date Time Temp Pulse Resp B/P (MAP) Pulse Ox O2 Delivery O2 Flow Rate FiO2 10/23/17 08:30 112 26 133/80 92 Nasal Cannula 4.0 10/23/17 07:30 129 24 140/73 91 Nasal Cannula 4.0 10/23/17 07:00 110 24 128/73 93 Nasal Cannula 4.0 10/23/17 06:15 107 20 148/71 93 Nasal Cannula 4.0 10/23/17 05:56 113 10/23/17 05:36 36.5 110 24 139/78 91 Nasal Cannula 4.0 General Appearance: WD/WN, + mild distress Head: normocephalic Eyes: normal inspection ENT: normal ENT inspection Neck: supple, no JVD Respiratory/Chest: chest non-tender, lungs clear, + respiratory distress, + crackles, + wheezing Cardiovascular: regular rate, rhythm, no edema, no gallop, no JVD, no murmur Abdomen/GI: + tenderness, + abnormal bowel sounds, + distended, + guarding Back: normal inspection Extremities/Musculoskelatal: normal inspection, no calf tenderness, normal capillary refill Neurologic/Psych: no motor/sensory deficits, alert, normal mood/affect Skin: normal color, warm/dry, no rash Laboratory Results Last 24 Hours Test 10/23/17 05:45 10/23/17 05:53 White Blood Count 101.81 K/uL Red Blood Count 3.39 M/uL Hemoglobin 10.8 g/dL Hematocrit 33.2 % Mean Corpuscular Volume 97.9 fL Mean Corpuscular Hemoglobin 31.9 pg Mean Corpuscular Hemoglobin Concent 32.5 g/dl Platelet Count 313 K/uL Mean Platelet Volume 9.7 fL Neutrophils (%) (Auto) 91.4 % Lymphocytes (%) (Auto) 0.8 % Monocytes (%) (Auto) 0.9 % Eosinophils (%) (Auto) 0.0 % Basophils (%) (Auto) 0.2 % Neutrophils # (Auto) 92.97 K/uL Lymphocytes # (Auto) 0.81 K/uL Monocytes # (Auto) 0.93 K/uL Eosinophils # (Auto) 0.03 K/uL Basophils # (Auto) 0.20 K/uL RDW Standard Deviation 58.2 fL RDW Coefficient of Variation 16.4 % Immature Granulocyte % (Auto) 6.7 % Immature Granulocyte # (Auto) 6.87 K/uL Platelet Estimate NORMAL Sodium Level 140 mmol/L Potassium Level 3.6 mmol/L Chloride Level 105 mmol/L Carbon Dioxide Level 28 mmol/L Anion Gap 7.0 mmol/L 19.0 mmol/L Blood Urea Nitrogen 24 mg/dl Creatinine 0.94 mg/dl Est Creatinine Clear Calc Drug Dose 27.9 ml/min Estimated GFR () 63.7 Estimated GFR (Non- 54.9 BUN/Creatinine Ratio 25.8 Random Glucose 124 mg/dl Calcium Level 8.9 mg/dl Total Bilirubin 0.5 mg/dl Direct Bilirubin 0.2 mg/dl Aspartate Amino Transf (AST/SGOT) 18 U/L Alanine Aminotransferase (ALT/SGPT) 25 U/L Alkaline Phosphatase 90 U/L Troponin I 0.022 ng/ml Total Protein 7.0 gm/dl Albumin 3.4 gm/dl Lipase 1053 U/L Bedside Hemoglobin 11.2 g/dl Bedside Hematocrit 33 % Bedside Sodium 142 mEq/L Bedside Potassium 3.6 mEq/L Bedside Chloride 101 mEq/L Bedside Total CO2 27 mEq/l Bedside Blood Urea Nitrogen 26 mg/dl Bedside Creatinine 0.8 mg/dl Bedside Glucose (other) 130 mg/dl Bedside Ionized Calcium (Marian) 1.23 mmol/l Assessment & Plan IMPRESSION: 1. Multiple bilateral segmental and subsegmental pulmonary emboli are noted involving the lower lobes and left upper lobe. Mild dilation of the main pulmonary artery suggests pulmonary arterial hypertension. 2. Large amount of pneumoperitoneum in the upper abdomen suggests perforated viscus. Additionally, there is a mild amount of upper abdominal ascites. Surgical consultation advised. 3. Cholelithiasis. 4. Decreased adenopathy about the chest from comparison PET CT 08/30/2017. 5. No aortic aneurysm or dissection. Assessment, pt is a 87 yo female who presents to Er with 6 hours acute abdominal pain, pt had CT scan chest showed- multiple bilt PE and free abdominal air, possible bowel perforation, IMP, PE, Bowel perforation, Plan, IV fluid, antibiotic, emergency exploratory laparotomy, possible bowel resection , stoma, D/W with pt and her family members, benefits, risks and alternatives of the procedure, the risks - infection , bleeding, sepsis, multiple organs failure, anastomotic leak, . pt and her family members understood, they want to proceed the procedure, I answered all questions, I also gave pt option possible comfortable care, but pt wants to go to surgery.
[2017-10-23] MEDS ORDERED: VANCOMYCIN 1GM/270ML NSS ONE (09:09)
[2017-10-23] MEDS ORDERED: ALBUMIN HUMAN 5% 12.5 GM/250 ML VIAL IV ONE ×2 (09:10→09:11)
[2017-10-23] MEDS ORDERED: VANCOMYCIN HCL 1000MG/20ML VIAL ONE (10:01)
[2017-10-23] MEDS ORDERED: PROPOFOL IV EMULSION 10 MG/ML 20 ML VIAL IV ONE (10:22)
[2017-10-23] MEDS ORDERED: EpHEDrine SULFATE 50MG/5ML SYR ONE (10:22)
[2017-10-23] MEDS ORDERED: ONDANSETRON INJ 2 MG/ML 2 ML VIAL ONE (10:22)
[2017-10-23] MEDS ORDERED: PHENYLEPHRINE HCL INJ 10 MG/ML VIAL ONE (10:22)
[2017-10-23] MEDS ORDERED: VASOPRESSIN 20 UNIT/ML VIAL ONE (10:22)
[2017-10-23] MEDS ORDERED: PHENYLEPHRINE 100MCG/ML 5ML SYR ONE (10:22)
[2017-10-23] MEDS ORDERED: ETOMIDATE 2 MG/ML 20 ML VIAL IV ONE (10:22)
--- NOTE | 2017-10-23 10:41 | [facility] Post Operative Brief Note ---
Immediate Operative Summary Operative Date Oct 23, 2017. Pre-Operative Diagnosis peritonitis, duodenal Bowel Perforation Post-Operative Diagnosis same, + ventral hernia Procedure(s) Performed Exploratory Laparotomy, Closure of Duodenal Ulcer with Abad Patch, Repair Ventral Hernia. Surgeon Face Painter Surgeon(s) ESTEHR Villagran Estimated Blood Loss 10ml Findings Consistent with Post-Op Diagnosis duodenal perforation, ventral hernia, peritonitis Fluids (cc crystalloids) 2000ml Specimens A:Ventral Hernia Sac Drains ALIYA x1 Anesthesia Type General Complication(s) none Disposition Accompanied Pt To Recover: yes Disposition: Surgical ICU
[2017-10-23] MEDS ORDERED: LIDOCAINE HCL 1% MPF 5 ML VIAL INJ ONE (10:42)
[2017-10-23] MEDS ORDERED: BUPIVACAINE 0.5 % 5 MG/1 ML MPF 30ML VIAL INJ ONE (10:42)
[2017-10-23] MEDS ORDERED: LIDOCAINE HCL 1% 20 ML VIAL ONE (10:46)
[2017-10-23] MEDS ORDERED: ONDANSETRON INJ 2 MG/ML 2 ML VIAL IV PRN ×2 (11:00→11:45)
[2017-10-23] MEDS ORDERED: VANCOMYCIN CONSULT ACTIVE PRN (11:00)
[2017-10-23] MEDS ORDERED: HYDROmorphone INJ 1 MG/ML SYR IV PRN (11:00)
[2017-10-23] MEDS ORDERED: HYDROmorphone INJ 1 MG/ML SYR ONE (11:23)
[2017-10-23] MEDS ORDERED: NALOXONE HCL 0.4 MG/1 ML VIAL/CARP IV PRN (11:45)
[2017-10-23] MEDS ORDERED: HYDROmorphone INJ 0.5 MG/0.5 ML SYR IV PRN (11:45)
[2017-10-23] MEDS ORDERED: EpHEDrine SULFATE INJ 50 MG/ML AMP IV PRN (11:45)
[2017-10-23] MEDS ORDERED: ATROPINE SULFATE 0.1 MG/ML 5ML SYR IV PRN (11:45)
[2017-10-23] MEDS ORDERED: PROMETHAZINE HCL INJ 12.5 MG in SODIUM CHLORIDE 0.9% 50ML 50 ML IV PRN (11:45)
[2017-10-23] MEDS ORDERED: LABETALOL HCL IV 5 MG/ML 20ML IV PRN (11:45)
[2017-10-23 12:38] LABS: HEMATOCRIT 30.8 % (37-47); HEMOGLOBIN 9.9 g/dL (12.0-16.0)
--- NOTE | 2017-10-23 12:44 | DIAGNOSTIC IMAGING REPORT ---
KUB CLINICAL HISTORY: 87 years-old Female presenting with S/P NG PLACEMENT. TECHNIQUE: Single supine view of the abdomen was obtained. COMPARISON: CT from earlier the same day. FINDINGS: Nasogastric tube terminates at the gastric fundus, sidehole within the gastric lumen. Surgical skin moe noted in the midline abdomen and Tony-Harrell drain projects over the pelvis. No bowel obstruction. Excreted contrast noted in the renal collecting systems. Multiple thoracolumbar levels demonstrate kyphoplasty changes. Bibasilar dependent consolidation greater on the left. IMPRESSION: 1. Nasogastric tube terminates at the gastric fundus. 2. Postsurgical changes of the abdomen. 3. Extensive bibasilar atelectasis suspected greater on the left. Electronically signed by: Gregorio Shelton M.D. 10/23/2017 12:43 PM Dictated Date/Time: 10/23/2017 12:41 PM
[2017-10-23] MEDS: LACTATED RINGER'S 1000ML 1,000 ML IV SCH ×2 (14:14→21:23)
[2017-10-23 14:17] LABS: PTT PATIENT 22.8 SECONDS (21.0-31.0)
--- NOTE | 2017-10-23 15:00 | Anesthesiology Progress Note ---
Anesthesia Progress Note Date of Service Oct 23, 2017. Progress Notes Discussed pt case w/ Dr Palacios and report given.
[2017-10-23] MEDS: PIPERACILL/TAZOBAC IV 3.375 GM in DEXTROSE 5% 100ML 100 ML IV SCH (15:52)
[2017-10-23] MEDS ORDERED: NURSING VERBAL MED ORDER ONE (16:15)
[2017-10-23] MEDS: MoRPHine SULFATE 2 MG/ML CARP IV PRN ×2 (16:45→20:52)
--- NOTE | 2017-10-23 17:37 | OPERATIVE REPORT ---
DATE OF OPERATION: 10/23/2017 PREOPERATIVE DIAGNOSES: Peritonitis and duodenal perforation. POSTOPERATIVE DIAGNOSES: Same plus ventral hernia. OPERATION: Exploratory laparotomy, repair of duodenal perforation with jorgito patch repair of ventral hernia. SURGEON: Dr. Hakeem Payne. CRIMINAL JUSTICE TEACHER: Lianna Beverly PA-C ANESTHESIA: General. ESTIMATED BLOOD LOSS: About 10 mL. IV FLUIDS: 2000 mL. URINE OUTPUT: 250 mL. FINDINGS: Peritonitis, perforation of duodenum and ventral hernia. COMPLICATIONS: None. INDICATIONS FOR THE PROCEDURE: This is an 87-year-old female, who presented to the ED with 6-7 day abdominal pain and the patient had a CT scan showing multiple pulmonary emboli with bilateral lungand possible duodenal ulcer perforation. We decided to take the patient to the OR to do an emergency exploratory laparotomy, possible bowel resection, stoma I did talk to the patient about the benefit and risk, and alternate procedure. I indicated the risks may include, but not limited such as bleeding, infection, abscess, sepsis, shock, multiple organ failure, DVT, stroke, myocardial infarction, and even . The patient and the patient's family member understand and she agreed to proceed with the procedure. I answered all questions. DETAILS OF PROCEDURE: We brought the patient to the OR and put the patient in the supine position. The patient received SCD on bilateral legs to prevent DVT. Also, the patient received 3.375 grams of Zosyn IV for prophylactic antibiotic. Also, the patient received 1 gram of vancomycin for prophylactic antibiotic. The patient received general anesthesia without difficulty. The Sotelo catheter inserted and NG tube inserted. The patient's abdomen was prepped and draped in routine sterile fashion. After time-out, we made a midline abdominal incision and then, we found that the patient had one ventral hernia in the midline. Once we into the abdominal cavity, there were a lot of free fluid in the pelvic and abdominal cavity. We suctioned all the free fluid and then we found that the patient had a duodenal ulcer perforation, the size of about 0.8 cm x 0.4 cm. So, I decided to use 2-0 Vicryl to close duodenal ulcer perforation interrupted figure-of- eight x3 and used the omental patch to patch perforation air and rechecked no active bleeding, no leak, and at this time, we checked the abdomen, no active bleeding, no leak, and we used a warm saline with 1 gram of vancomycin to flush the abdomen, suctioned out the fluid and at this time, the patient had a small ventral hernia size about 2 x 3 cm at takedown of the hernia sac. Then, I decided to primarily close this ventral hernia and then I put one 10-mm ALIYA drainage in and used a 3-0 nylon to fix the ALIYA drainage and then we closed the abdomen by using #1 PDS fashion continuous running, closed subcutaneous layer by using 2-0 Vicryl, closed skin by using staple. We put the dressing on. The patient tolerated the procedure well. All instrument, needle and sponge counts correct x2. The hernia sac specimen sent to pathology. After the procedure, the patient transported to the ICU. I did talk to the patient's family member about the OR finding and procedure we did and they understand. I attest to the content of the Intraoperative Record and any orders documented therein. Any exceptions are noted below. MERISSA
--- NOTE | 2017-10-23 17:57 | Surgery Progress Note ---
Surgery Progress Note Date of Service Oct 23, 2017. Subjective pt is stable, less abdominal pain, no nausea, no vomiting, Objective Vital Signs: Date Time Temp Pulse Resp B/P (MAP) Pulse Ox O2 Delivery O2 Flow Rate FiO2 10/23/17 15:15 92 22 115/49 (71) 99 Oxymask 10.0 10/23/17 15:00 94 22 111/48 (69) 97 Oxymask 10.0 10/23/17 14:45 99 22 115/50 (71) 98 Oxymask 10.0 10/23/17 14:30 88 20 116/47 (70) 90 Oxymask 10.0 10/23/17 14:15 96 22 119/52 (74) 96 Oxymask 10.0 10/23/17 14:01 98 22 111/50 (70) 95 Oxymask 10.0 10/23/17 14:00 99 22 114/49 (70) 95 Oxymask 10.0 10/23/17 13:46 99 20 113/52 (72) 96 Oxymask 10.0 10/23/17 13:45 105 20 117/53 (74) 96 Oxymask 10.0 10/23/17 13:40 99 22 103/47 (65) 95 Oxymask 10.0 10/23/17 13:30 36.5 109 24 117/69 93 10.0 10/23/17 13:30 106 22 109/51 (70) 95 Oxymask 10.0 10/23/17 13:15 104 22 113/60 (77) 95 Oxymask 10.0 10/23/17 12:25 37.0 110 15 126/68 95 Oxymask 10 10/23/17 12:15 109 17 123/71 95 Oxymask 10 10/23/17 12:05 116 23 147/83 94 Oxymask 10 10/23/17 11:55 107 14 121/65 95 Oxymask 10 10/23/17 11:45 117 33 121/68 93 Oxymask 10 10/23/17 11:35 113 24 133/78 89 Oxymask 10 10/23/17 11:25 116 31 135/89 90 Oxymask 10 10/23/17 11:15 110 27 127/94 90 Oxymask 10 10/23/17 11:05 110 24 129/76 90 Oxymask 10 10/23/17 10:57 36.3 110 22 114/84 89 Oxymask 10 10/23/17 08:30 112 26 133/80 92 Nasal Cannula 4.0 10/23/17 07:30 129 24 140/73 91 Nasal Cannula 4.0 10/23/17 07:00 110 24 128/73 93 Nasal Cannula 4.0 10/23/17 06:15 107 20 148/71 93 Nasal Cannula 4.0 10/23/17 05:56 113 10/23/17 05:36 36.5 110 24 139/78 91 Nasal Cannula 4.0 General Appearance: WD/WN, + mild distress Head: normocephalic Neck: supple, thyroid normal Respiratory/Chest: chest non-tender, lungs clear Cardiovascular: regular rate, rhythm, no edema, no gallop, no JVD Abdomen: normal bowel sounds, non distended, soft Incision(s): clean, dry, intact Extremities: normal range of motion, non-tender, normal inspection Laboratory Results: Results Past 24 Hours Test 10/23/17 05:45 10/23/17 05:53 10/23/17 12:16 10/23/17 13:38 Range/Units White Blood Count 101.81 4.8-10.8 K/uL Red Blood Count 3.39 4.2-5.4 M/uL Hemoglobin 10.8 9.9 12.0-16.0 g/dL Hematocrit 33.2 30.8 37-47 % Mean Corpuscular Volume 97.9 80-100 fL Mean Corpuscular Hemoglobin 31.9 25-34 pg Mean Corpuscular Hemoglobin Concent 32.5 32-36 g/dl Platelet Count 313 130-400 K/uL Mean Platelet Volume 9.7 7.4-10.4 fL Neutrophils (%) (Auto) 91.4 % Lymphocytes (%) (Auto) 0.8 % Monocytes (%) (Auto) 0.9 % Eosinophils (%) (Auto) 0.0 % Basophils (%) (Auto) 0.2 % Neutrophils # (Auto) 92.97 1.4-6.5 K/uL Lymphocytes # (Auto) 0.81 1.2-3.4 K/uL Monocytes # (Auto) 0.93 0.11-0.59 K/uL Eosinophils # (Auto) 0.03 0-0.5 K/uL Basophils # (Auto) 0.20 0-0.2 K/uL RDW Standard Deviation 58.2 36.4-46.3 fL RDW Coefficient of Variation 16.4 11.5-14.5 % Immature Granulocyte % (Auto) 6.7 % Immature Granulocyte # (Auto) 6.87 0.00-0.02 K/uL Platelet Estimate NORMAL Sodium Level 140 136-145 mmol/L Potassium Level 3.6 3.5-5.1 mmol/L Chloride Level 105 98-107 mmol/L Carbon Dioxide Level 28 21-32 mmol/L Anion Gap 7.0 19.0 16-25 mmol/L Blood Urea Nitrogen 24 7-18 mg/dl Creatinine 0.94 0.60-1.20 mg/dl Est Creatinine Clear Calc Drug Dose 27.9 ml/min Estimated GFR () 63.7 Estimated GFR (Non- 54.9 BUN/Creatinine Ratio 25.8 10-20 Random Glucose 124 70-99 mg/dl Calcium Level 8.9 8.5-10.1 mg/dl Total Bilirubin 0.5 0.2-1 mg/dl Direct Bilirubin 0.2 0-0.2 mg/dl Aspartate Amino Transf (AST/SGOT) 18 15-37 U/L Alanine Aminotransferase (ALT/SGPT) 25 12-78 U/L Alkaline Phosphatase 90 45-117 U/L Troponin I 0.022 0-0.045 ng/ml Total Protein 7.0 6.4-8.2 gm/dl Albumin 3.4 3.4-5.0 gm/dl Lipase 1053 73-393 U/L Bedside Hemoglobin 11.2 12.0-16.0 g/dl Bedside Hematocrit 33 37-47 % Bedside Sodium 142 135-144 mEq/L Bedside Potassium 3.6 3.3-5.0 mEq/L Bedside Chloride 101 101-112 mEq/L Bedside Total CO2 27 24-31 mEq/l Bedside Blood Urea Nitrogen 26 7-18 mg/dl Bedside Creatinine 0.8 0.6-1.3 mg/dl Bedside Glucose (other) 130 70-99 mg/dl Bedside Ionized Calcium (Marian) 1.23 1.12-1.32 mmol/l Arterial Blood pH 7.25 7.35-7.45 Arterial Blood Partial Pressure CO2 51 35-46 mmHg Arterial Blood Partial Pressure O2 75 80-95 mm/Hg Arterial Blood HCO3 22 19-24 mmol/L Arterial Blood Oxygen Saturation 91.5 90-95 % Arterial Blood Base Excess -5.0 -9-1.8 mEq/L Arterial Blood Gas Delivery 10L Ousmane Test FRANCO POS Prothrombin Time 11.0 9.0-12.0 SECONDS Prothromb Time International Ratio 1.0 0.9-1.1 Activated Partial Thromboplast Time 22.8 21.0-31.0 SECONDS Partial Thromboplastin Ratio 0.9 Microbiology Results 10/23/17 MRSA DNA Surveillance Screen - Final, Complete Specimen Negative for MRSA by DNA Probe Assessment & Plan pt is stable, good urine output D/W ICU attending about treatment plan for PE , ID consult for possible sepsis continue treatment iv antibiotic, iv fluid peritoneal fluid culture repeat labs in am, will F/U
[2017-10-23] MEDS ORDERED: HEPARIN IV LOW DOSE NO BOLUS SCH (19:00)
[2017-10-23] MEDS: HEPARIN 25,000 UNIT/500ML D5W 500 ML IV PRN (19:24)
--- NOTE | 2017-10-23 19:38 | Critical Care Consultation ---
Critical Care Consultation Date of Consultation: Oct 23, 2017. Attending Physician: Hakeem Payne MD Reason for Consultation: Postoperative management, high risk PE History of Present Illness Patient is an 87-year-old female who presented to [facility] emergency department approximately 4 AM for sudden onset epigastric pain. During the course of her workup she was found to have a perforated viscus and free air under the diaphragm in addition to bilateral pulmonary emboli. It is noted that the patient has a history of lymphoma and is currently on chemotherapy. Patient went to emergent surgery for the perforated viscus, she underwent exploratory laparotomy Abad patch repair of the duodenal ulceration as well as repair of ventral hernia. Patient was successfully extubated postop and admitted to the ICU for further medical management. Past Medical/Surgical History Lymphoma on chemotherapy Family History Patient reports no known family medical history. Social History Smoking Status: Former Smoker Smokeless Tobacco Use: No Alcohol Use: none Drug Use: none Housing Status: lives alone Allergies Coded Allergies: No Known Allergies (Verified , 10/23/17) Home Medications Scheduled Alendronate Sodium (Fosamax), 70 MG PO WK B-Complex Vitamins (Vitamin B Complex), 1 TAB PO DAILY AT 1200 Biotin (Biotin), 1 TAB PO QD@1200 Calcium Carbonate-Vitamin D W/ (Caltrate 600 Plus), 1 TAB PO QD@1200 Cholecalciferol (Vitamin D3), 1,000 UNITS PO DAILY AT 1200 Cyanocobalamin (B-12), 1,000 MCG PO QAM Ferrous Sulfate (Kp Ferrous Sulfate), 325 MG PO DAILY AT 1200 Dpizgdixdjt-Xmgtrdpduhj-Niq C- (Glucosamine Chondroitin), 2 TAB PO QD@1200 Hydrochlorothiazide (Hctz), 25 MG PO WITH LUNCH Levothyroxine Sodium (Levothyroxine Sodium), 1 TAB PO QAM Meloxicam (Mobic), 15 MG PO QAM Multiple Vitamins W/ Minerals (Centrum Silver Adult 50+), 1 TAB PO WITH LUNCH Prednisone (Prednisone), 20 MG PO DIRECTED Propranolol (Inderal), 20 MG PO QAM Sennosides-Docusate Sodium (Stool Softener), 1 TAB DAILY PRN Zinc Gluconate (Zinc), 1 TAB PO QD@1200 Scheduled PRN Lorazepam (Ativan), 0.25-0.5 MG PO TID PRN for Anxiety Current Inpatient Medications Current Inpatient Medications Medications (Trade) Dose Ordered Sig/Madonna Route Start Time Stop Time Status Last Admin Dose Admin Ioversol (Optiray 320) 100 ml UD PRN IV 10/23/17 06:00 10/27/17 05:59 Lactated Ringer's 1,000 ml @ 100 mls/hr Q10H IV 10/23/17 10:57 11/22/17 10:56 10/23/17 14:14 100 MLS/HR Piperacillin Sod/ Tazobactam Sod 3.375 gm/Dextrose 115 ml @ 28.7 mls/hr Q8H IV 10/23/17 16:00 10/24/17 15:59 10/23/17 15:52 28.7 MLS/HR Vancomycin HCl 1000 mg/Sodium Chloride 270 ml @ 125 mls/hr TODAY@2200 ONCE IV 10/23/17 22:00 10/24/17 00:09 Ondansetron HCl (Zofran Inj) 4 mg Q4H PRN IV 10/23/17 11:00 11/22/17 10:59 Morphine Sulfate (MoRPHine SULFATE INJ) 2 mg Q3HWA PRN IV 10/23/17 11:00 11/06/17 10:59 10/23/17 16:45 2 MG Hydromorphone HCl (Dilaudid Inj) 0.6 mg Q3H PRN IV 10/23/17 11:00 11/06/17 10:59 Pantoprazole Sodium 40 mg/ Syringe 10 ml @ 5 mls/min BID@0900,2100 IV 10/23/17 21:00 11/22/17 20:59 Heparin Sodium/ Dextrose 500 ml @ 13 mls/hr Q24H PRN IV 10/23/17 19:00 11/22/17 18:59 Review of Systems Constitutional: No fever, No chills Respiratory: No cough Cardiovascular: No chest pain Abdomen: + pain (Postoperative pain less than preoperative pain), + nausea ( Mild) Physical Exam Date Time Temp Pulse Resp B/P (MAP) Pulse Ox O2 Delivery O2 Flow Rate FiO2 10/23/17 15:15 92 22 115/49 (71) 99 Oxymask 10.0 10/23/17 15:00 94 22 111/48 (69) 97 Oxymask 10.0 10/23/17 14:45 99 22 115/50 (71) 98 Oxymask 10.0 10/23/17 14:30 88 20 116/47 (70) 90 Oxymask 10.0 10/23/17 14:15 96 22 119/52 (74) 96 Oxymask 10.0 10/23/17 14:01 98 22 111/50 (70) 95 Oxymask 10.0 10/23/17 14:00 99 22 114/49 (70) 95 Oxymask 10.0 10/23/17 13:46 99 20 113/52 (72) 96 Oxymask 10.0 10/23/17 13:45 105 20 117/53 (74) 96 Oxymask 10.0 10/23/17 13:40 99 22 103/47 (65) 95 Oxymask 10.0 10/23/17 13:30 36.5 109 24 117/69 93 10.0 10/23/17 13:30 106 22 109/51 (70) 95 Oxymask 10.0 10/23/17 13:15 104 22 113/60 (77) 95 Oxymask 10.0 10/23/17 12:25 37.0 110 15 126/68 95 Oxymask 10 10/23/17 12:15 109 17 123/71 95 Oxymask 10 10/23/17 12:05 116 23 147/83 94 Oxymask 10 10/23/17 11:55 107 14 121/65 95 Oxymask 10 10/23/17 11:45 117 33 121/68 93 Oxymask 10 10/23/17 11:35 113 24 133/78 89 Oxymask 10 10/23/17 11:25 116 31 135/89 90 Oxymask 10 10/23/17 11:15 110 27 127/94 90 Oxymask 10 10/23/17 11:05 110 24 129/76 90 Oxymask 10 10/23/17 10:57 36.3 110 22 114/84 89 Oxymask 10 10/23/17 08:30 112 26 133/80 92 Nasal Cannula 4.0 10/23/17 07:30 129 24 140/73 91 Nasal Cannula 4.0 10/23/17 07:00 110 24 128/73 93 Nasal Cannula 4.0 10/23/17 06:15 107 20 148/71 93 Nasal Cannula 4.0 10/23/17 05:56 113 2/26/18 05:36 36.5 110 24 139/78 91 Nasal Cannula 4.0 General Appearance: mild distress Eyes: PERRLA, no discharge, EOMI, sclerae normal, scleral icterus Neck: normal range of motion, no tenderness, trachea midline, no stridor, supple, no thyromegaly, no lymphadenopathy, no meningismus Respiratory: breath sounds normal, clear to auscultation, clear to percussion, no respiratory distress Cardiovasular: regular rate/rhythm, normal S1S2, no M/G/R, no murmur Abdomen: other (Binder in place draining has serosanguineous fluid) Genitourinary - Female: other (Sotelo in place) Upper Extremities: normal ROM Lower Extremities: no deformity, normal ROM Neuro: alert, oriented x 3, normal motor exam Laboratory Results Last 24 Hours Test 10/23/17 05:45 10/23/17 05:53 10/23/17 12:16 10/23/17 13:38 White Blood Count 101.81 K/uL Red Blood Count 3.39 M/uL Hemoglobin 10.8 g/dL 9.9 g/dL Hematocrit 33.2 % 30.8 % Mean Corpuscular Volume 97.9 fL Mean Corpuscular Hemoglobin 31.9 pg Mean Corpuscular Hemoglobin Concent 32.5 g/dl Platelet Count 313 K/uL Mean Platelet Volume 9.7 fL Neutrophils (%) (Auto) 91.4 % Lymphocytes (%) (Auto) 0.8 % Monocytes (%) (Auto) 0.9 % Eosinophils (%) (Auto) 0.0 % Basophils (%) (Auto) 0.2 % Neutrophils # (Auto) 92.97 K/uL Lymphocytes # (Auto) 0.81 K/uL Monocytes # (Auto) 0.93 K/uL Eosinophils # (Auto) 0.03 K/uL Basophils # (Auto) 0.20 K/uL RDW Standard Deviation 58.2 fL RDW Coefficient of Variation 16.4 % Immature Granulocyte % (Auto) 6.7 % Immature Granulocyte # (Auto) 6.87 K/uL Platelet Estimate NORMAL Sodium Level 140 mmol/L Potassium Level 3.6 mmol/L Chloride Level 105 mmol/L Carbon Dioxide Level 28 mmol/L Anion Gap 7.0 mmol/L 19.0 mmol/L Blood Urea Nitrogen 24 mg/dl Creatinine 0.94 mg/dl Est Creatinine Clear Calc Drug Dose 27.9 ml/min Estimated GFR () 63.7 Estimated GFR (Non- 54.9 BUN/Creatinine Ratio 25.8 Random Glucose 124 mg/dl Calcium Level 8.9 mg/dl Total Bilirubin 0.5 mg/dl Direct Bilirubin 0.2 mg/dl Aspartate Amino Transf (AST/SGOT) 18 U/L Alanine Aminotransferase (ALT/SGPT) 25 U/L Alkaline Phosphatase 90 U/L Troponin I 0.022 ng/ml Total Protein 7.0 gm/dl Albumin 3.4 gm/dl Lipase 1053 U/L Bedside Hemoglobin 11.2 g/dl Bedside Hematocrit 33 % Bedside Sodium 142 mEq/L Bedside Potassium 3.6 mEq/L Bedside Chloride 101 mEq/L Bedside Total CO2 27 mEq/l Bedside Blood Urea Nitrogen 26 mg/dl Bedside Creatinine 0.8 mg/dl Bedside Glucose (other) 130 mg/dl Bedside Ionized Calcium (Marian) 1.23 mmol/l Arterial Blood pH 7.25 Arterial Blood Partial Pressure CO2 51 mmHg Arterial Blood Partial Pressure O2 75 mm/Hg Arterial Blood HCO3 22 mmol/L Arterial Blood Oxygen Saturation 91.5 % Arterial Blood Base Excess -5.0 mEq/L Arterial Blood Gas Delivery 10L Ousmane Test FRANCO Prothrombin Time 11.0 SECONDS Prothromb Time International Ratio 1.0 Activated Partial Thromboplast Time 22.8 SECONDS Partial Thromboplastin Ratio 0.9 Assessment & Plan Reason Critically Ill: 87-year-old female with known malignancy who has a perforated viscus PLAN: Neuro: Postoperative pain control Resp: Bilateral pulmonary emboli * Low intensity heparin drip to start at 7 PM, 6 hours after operative management no bolus CV: Hypertension * Propranolol 20 mg daily per prior records Fluids/Renal: Lactated Ringer's at 100 and mils an hour ID: * Perforated viscus * Vancomycin and Zosyn * Discussed with Dr. Payne general surgery no indication for antifungal coverage at this time GI/Nutrition: N.p.o. Heme: Low intensity heparin infusion Endocrine: Accu-Cheks per ICU protocol I have personally spent 60 minutes of critical care time in the direct management of this patient. This is a life/limb threatening event. This includes time spent evaluating patient, direct bedside care, chart review, placing orders, interpretation of diagnostic studies, discussion with consultants, patient, and/or family members regarding treatment decisions, as well as other required patient management activities. This time is exclusive of all separately billable procedures, and teaching time and separate from and in addition to any other critical care service time.
[2017-10-23] MEDS ORDERED: COUGH DROP (SUGAR FREE) LOZ 24 LOZ/1 BOX LOZ ONE (20:42)
[2017-10-23] MEDS ORDERED: COUGH DROP (SUGAR FREE) LOZ 24 LOZ/1 BOX LOZ PRN (21:00)
[2017-10-23] MEDS ORDERED: NURSING DECISION MEDICATION ORDER SCH (21:00)
[2017-10-23] MEDS ORDERED: METOPROLOL TARTRATE 1 MG/ML VIAL IV STA (21:00)
--- NOTE | 2017-10-23 21:12 | Critical Care Progress Note ---
Critical Care Progress Note Date of Service Oct 23, 2017. Critical Care Progress Note Pt was noted on telemetry to be in A. Fib RVR with rates of 120-130. Pt denied awareness of shortness of breath, tachyarrhythmia or chest pain. She admitted only to continued abd pain and extreme thirst. Pt examined with no new acute findings. SBP and SPO2 remain stable. EKG ordered H&H pending Metoprolol 5mg IV Stat Morphine gv'n for pain Additional Critical Care time: 15 minutes
[2017-10-23] MEDS ORDERED: METOPROLOL TARTRATE 1 MG/ML VIAL ONE (21:23)
[2017-10-23] MEDS: PANTOprazole INJ 40 MG in SYRINGE 0 ML IV SCH (21:24)
[2017-10-23 21:31] LABS: HEMATOCRIT 28.9 % (37-47); HEMOGLOBIN 9.2 g/dL (12.0-16.0)
[2017-10-23] MEDS ORDERED: VANCOMYCIN INJ 1,000 MG in SODIUM CHLORIDE 0.9% 250ML 250 ML IV ONE (22:00)
[2017-10-24] VITALS (21 sets, daily range): BP systolic 106–191; BP diastolic 46–69; PULSE 85–120; TEMP 36.3–36.8; O2SAT 88–100; Ht 132.1 cm; Wt 57.4 kg
[2017-10-24] MEDS: MoRPHine SULFATE 2 MG/ML CARP IV PRN ×5 (00:01→20:10)
[2017-10-24] MEDS: PIPERACILL/TAZOBAC IV 3.375 GM in DEXTROSE 5% 100ML 100 ML IV SCH ×4 (00:01→23:52)
[2017-10-24 00:53] LABS: PTT PATIENT 30.9 SECONDS (21.0-31.0)
[2017-10-24] MEDS ORDERED: HEPARIN IV BOLUS 4,000 UNIT in SYRINGE 0 ML IV ONE (02:45)
--- NOTE | 2017-10-24 05:54 | Clinical Documentation Query ---
CLINICAL DOCUMENTATION QUERY Query #1/2 87 year old female who was found to have a perforated duodenum with peritonitis. She presented with extreme leukocytosis, tachycardia, hypoxia. She was showing signs of decompensation (pale diaphoretic, +respiratory distress, + crackles, & + wheezing.) In your clinical opinion is this patient being managed for: ( ) Early Sepsis Present on Admission (POA) ( ) Not Agree ( ) Other explanation of clinical findings (Please Explain) ( ) Unable to determine (Please Define) ( ) Need to Discuss The medical record reflects the following clinical findings, treatment, and risk factors. Clinical Indicators: WBC 101.81, ABG 7.25/51/75/22, Tachycardia 113-130, tachypnea 26-31, and hypoxia of 89% requiring Oxymask Treatment: Copious IVF administration >3L, Emergent GI surgery, IV Vancomycin, IV Zosyn, Risk Factors: Age, perforated Duodenum, peritonitis. Query #2/2 87 year old female found to have a Duodenal perforation and bilateral PE's. She has been tachycardic, tachypneic, and hypoxic. In your clinical opinion is this patient being managed for: ( ) Acute respiratory failure Present on Admission (POA) in setting of bilateral PE's and duodenal perforatition. ( ) Not Agree ( ) Other explanation of clinical findings (Please Explain) ( ) Unable to determine (Please Define) ( ) Need to Discuss The medical record reflects the following clinical findings, treatment, and risk factors. Clinical Indicators: Vitals: 36.5 113-130 26-31 133/80 89% on 6L oxymask. She presented pale and diaphoretic per ED physician. Surgical consult noted + respiratory distress, + crackles, + wheezing. She also had a distended abdomen. Treatment: O2 via mask, ICU hemodynamic monitoring, ABG, Risk Factors: Age, PE, GI pain and distention. Please clarify and document your clinical opinion in the progress notes and discharge summary. Terms such as "probable", "suspected", "likely", "questionable", "possible", or "still to be ruled out" are acceptable. IF IN AGREEMENT, YOU MUST DOCUMENT ABOVE DIAGNOSTIC STATEMENT IN DAILY PROGRESS NOTES AND DISCHARGE SUMMARY. This document is not part of the patient's record. Thank You, Woodrow Dent, RN [phone]
--- NOTE | 2017-10-24 05:56 | Clinical Documentation Query ---
CLINICAL DOCUMENTATION QUERY Query #1/2 87 year old female who was found to have a perforated duodenum with peritonitis. She presented with extreme leukocytosis, tachycardia, hypoxia. She was showing signs of decompensation (pale diaphoretic, +respiratory distress, + crackles, & + wheezing.) In your clinical opinion is this patient being managed for: ( ) Early Sepsis Present on Admission (POA) (X ) Not Agree ( ) Other explanation of clinical findings (Please Explain) ( ) Unable to determine (Please Define) ( ) Need to Discuss The medical record reflects the following clinical findings, treatment, and risk factors. Clinical Indicators: WBC 101.81, ABG 7.25/51/75/22, Tachycardia 113-130, tachypnea 26-31, and hypoxia of 89% requiring Oxymask Treatment: Copious IVF administration >3L, Emergent GI surgery, IV Vancomycin, IV Zosyn, Risk Factors: Age, perforated Duodenum, peritonitis. Query #2/2 87 year old female found to have a Duodenal perforation and bilateral PE's. She has been tachycardic, tachypneic, and hypoxic. In your clinical opinion is this patient being managed for: (X ) Acute respiratory failure Present on Admission (POA) in setting of bilateral PE's and duodenal perforatition. ( ) Not Agree ( ) Other explanation of clinical findings (Please Explain) ( ) Unable to determine (Please Define) ( ) Need to Discuss The medical record reflects the following clinical findings, treatment, and risk factors. Clinical Indicators: Vitals: 36.5 113-130 26-31 133/80 89% on 6L oxymask. She presented pale and diaphoretic per ED physician. Surgical consult noted + respiratory distress, + crackles, + wheezing. She also had a distended abdomen. Treatment: O2 via mask, ICU hemodynamic monitoring, ABG, Risk Factors: Age, PE, GI pain and distention. Please clarify and document your clinical opinion in the progress notes and discharge summary. Terms such as "probable", "suspected", "likely", "questionable", "possible", or "still to be ruled out" are acceptable. IF IN AGREEMENT, YOU MUST DOCUMENT ABOVE DIAGNOSTIC STATEMENT IN DAILY PROGRESS NOTES AND DISCHARGE SUMMARY. This document is not part of the patient's record. Thank You, Woodrow Dent, RN [phone]
[2017-10-24] MEDS ORDERED: VANCOMYCIN 1GM/270ML NSS IV ONE (06:00)
[2017-10-24 06:48] LABS: ALBUMIN 2.7 gm/dl (3.4-5.0); CALCIUM 7.2 mg/dl (8.5-10.1); CREATININE 0.8 mg/dl (0.60-1.20); PHOSPHORUS 2.8 mg/dl (2.5-4.9); POTASSIUM 3.5 mmol/L (3.5-5.1); TOTAL PROTEIN 5.1 gm/dl (6.4-8.2)
[2017-10-24 06:54] LABS: HEMATOCRIT 24.3 % (37-47); HEMOGLOBIN 8.1 g/dL (12.0-16.0); MEAN CELL VOLUME 96.4 fL (80-100); MEAN CORPUSCULAR HEMOGLOBIN 32.1 pg (25-34); MEAN CORPUSCULAR HGB CONC 33.3 g/dl (32-36); MEAN PLATELET VOLUME 10.1 fL (7.4-10.4); PLATELET COUNT 178 K/uL (130-400); RED CELL DISTRIBUTION WIDTH CV 16.7 % (11.5-14.5); RED CELL DISTRIBUTION WIDTH SD 58.6 fL (36.4-46.3); WHITE BLOOD COUNT 48.11 K/uL (4.8-10.8)
[2017-10-24] MEDS ORDERED: ENOXAPARIN 30 MG/0.3 ML SYR SQ SCH (09:00)
[2017-10-24] MEDS: FLUCONAZOLE 200MG / NSS IV SCH ×2 (09:21→10:51)
[2017-10-24] MEDS: PANTOprazole INJ 40 MG in SYRINGE 0 ML IV SCH ×2 (09:22→20:06)
[2017-10-24 09:32] LABS: RETIC COUNT % 1.4 % (0.5-2.0)
[2017-10-24 09:51] LABS: PTT PATIENT 48.5 SECONDS (21.0-31.0)
[2017-10-24] MEDS ORDERED: HYDROmorphone INJ 0.5 MG/0.5 ML SYR IV PRN (10:30)
--- NOTE | 2017-10-24 12:08 | Medical Consult ---
Consultation Date of Consultation: Oct 24, 2017. Attending Physician: Hakeem Payne MD Reason for Consultation: Duodenal perforation, possible sepsis History of Present Illness 87-year-old female with history of lymphoma on chemotherapy, who was well until early medical scientific officer of admission when she awoke with severe abdominal pain, rated 10/10 in intensity. She was brought to the emergency department where she was found to have evidence duodenal perforation, as well as evidence of bilateral pulmonary emboli. He has since undergone emergency laparotomy and repair. Operative cultures are pending. Patient has been started empirically on Zosyn. Still complaining of severe abdominal pain but improved. Has been afebrile and hemodynamically stable. Tolerating her Zosyn so far. Past Medical/Surgical History Medical Problems: (1) Bilateral pulmonary embolism Status: Acute (2) Perforated bowel Status: Acute (3) Perforated viscus Status: Acute Medical Problems: (1) Benign hypertension (2) Duodenal perforation (3) Hypertension (4) Peritonitis (acute) generalized (5) Thoracia and Lumar kyphoplasty Family History Patient reports no known family medical history. Social History Smoking Status: Former Smoker Smokeless Tobacco Use: No Alcohol Use: none Drug Use: none Housing Status: lives alone Allergies Coded Allergies: No Known Allergies (Verified , 10/23/17) Current Inpatient Medications Current Inpatient Medications Medications (Trade) Dose Ordered Sig/Madonna Route Start Time Stop Time Status Last Admin Dose Admin Ioversol (Optiray 320) 100 ml UD PRN IV 10/23/17 06:00 10/27/17 05:59 Lactated Ringer's 1,000 ml @ 100 mls/hr Q10H IV 10/23/17 10:57 11/22/17 10:56 10/23/17 21:23 100 MLS/HR Piperacillin Sod/ Tazobactam Sod 3.375 gm/Dextrose 115 ml @ 28.7 mls/hr Q8H IV 10/23/17 16:00 10/24/17 15:59 10/24/17 07:50 28.7 MLS/HR Ondansetron HCl (Zofran Inj) 4 mg Q4H PRN IV 10/23/17 11:00 11/22/17 10:59 Morphine Sulfate (MoRPHine SULFATE INJ) 2 mg Q3HWA PRN IV 10/23/17 11:00 11/06/17 10:59 10/24/17 07:47 2 MG Pantoprazole Sodium 40 mg/ Syringe 10 ml @ 5 mls/min BID@0900,2100 IV 10/23/17 21:00 11/22/17 20:59 10/24/17 09:22 5 MLS/MIN Heparin Sodium/ Dextrose 500 ml @ 15 mls/hr Q24H PRN IV 10/23/17 19:00 11/22/17 18:59 10/23/17 19:24 13 MLS/HR Menthol (Nice Jaydon) 1 jaydon PRN PRN JAYDON 10/23/17 21:00 11/22/17 20:59 Fluconazole/ Sodium Chloride 200 mg/Prmx 100 ml @ 100 mls/hr QAM IV 10/25/17 09:00 10/30/17 09:59 Hydromorphone HCl (Dilaudid Inj) 0.5 mg Q3H PRN IV 10/24/17 10:30 11/06/17 10:59 Metoprolol Tartrate (Lopressor Iv) 5 mg Q6 IV. 10/24/17 12:15 11/23/17 12:14 Review of Systems All systems were reviewed and are negative except as per HPI Physical Exam Date Time Temp Pulse Resp B/P (MAP) Pulse Ox O2 Delivery O2 Flow Rate FiO2 10/24/17 10:00 120 20 162/65 (97) 92 Nasal Cannula 3.0 153/69 (97) 10/24/17 09:00 101 138/58 (84) 95 10/24/17 08:00 36.7 104 18 120/51 (74) 93 Nasal Cannula 3.0 118/60 (79) 10/24/17 08:00 93 Nasal Cannula 3.0 10/24/17 07:00 103 145/60 (88) 93 Nasal Cannula 3.0 10/24/17 06:00 98 16 126/51 (76) 94 Nasal Cannula 10/24/17 05:00 107 20 147/58 (87) 92 Nasal Cannula 3.0 10/24/17 04:00 111 20 128/51 (76) 93 Oxymask 2.0 10/24/17 04:00 Oxymask 2.0 10/24/17 03:00 108 16 138/59 (85) 93 Oxymask 2.0 10/24/17 02:00 85 20 112/46 (68) 97 Oxymask 2.0 10/24/17 01:00 94 20 112/47 (68) 94 Oxymask 6.0 10/24/17 00:00 Oxymask 10.0 10/24/17 00:00 36.3 94 18 142/62 (88) 100 Oxymask 10.0 10/23/17 22:00 83 84/41 (55) 98 10/23/17 21:30 108 95/42 (59) 96 10/23/17 21:23 119 105/52 10/23/17 21:00 103 101/27 (51) 97 10/23/17 20:00 93 103/38 (59) 95 10/23/17 20:00 97 Oxymask 10.0 10/23/17 19:00 98 122/46 (71) 98 10/23/17 18:00 100 111/43 (65) 98 Oxymask 10.0 10/23/17 17:00 37.3 101 97/40 (59) 95 Oxymask 10.0 10/23/17 16:00 102 149/66 (93) 96 Oxymask 10.0 10/23/17 16:00 98 Oxymask 10.0 10/23/17 15:15 92 22 115/49 (71) 99 Oxymask 10.0 10/23/17 15:00 94 22 111/48 (69) 97 Oxymask 10.0 10/23/17 14:45 99 22 115/50 (71) 98 Oxymask 10.0 10/23/17 14:30 88 20 116/47 (70) 90 Oxymask 10.0 10/23/17 14:15 96 22 119/52 (74) 96 Oxymask 10.0 10/23/17 14:01 98 22 111/50 (70) 95 Oxymask 10.0 10/23/17 14:00 99 22 114/49 (70) 95 Oxymask 10.0 10/23/17 13:46 99 20 113/52 (72) 96 Oxymask 10.0 10/23/17 13:45 105 20 117/53 (74) 96 Oxymask 10.0 10/23/17 13:40 99 22 103/47 (65) 95 Oxymask 10.0 10/23/17 13:30 36.5 109 24 117/69 93 10.0 10/23/17 13:30 106 22 109/51 (70) 95 Oxymask 10.0 10/23/17 13:15 104 22 113/60 (77) 95 Oxymask 10.0 10/23/17 12:25 37.0 110 15 126/68 95 Oxymask 10 10/23/17 12:15 109 17 123/71 95 Oxymask 10 General Appearance: WD/WN, no apparent distress Head: normocephalic, atraumatic Eyes: normal inspection, EOMI, sclerae normal ENT: normal ENT inspection, pharynx normal, + pertinent finding (Nasogastric tube in place) Neck: supple, no adenopathy, thyroid normal, trachea midline Respiratory/Chest: chest non-tender, lungs clear, normal breath sounds, no respiratory distress Cardiovascular: regular rate, rhythm, no gallop, no murmur Abdomen/GI: soft, no organomegaly, + tenderness, + abnormal bowel sounds Back: normal inspection, no CVA tenderness (She has) Extremities/Musculoskelatal: normal inspection, no calf tenderness, normal capillary refill, non-tender Neurologic/Psych: alert, normal mood/affect, oriented x 3 Skin: normal color, warm/dry, no rash Lymphatic: no adenopathy Laboratory Results Date/Time Source Procedure Growth Status 10/24/17 08:48 Blood Fungal Smear Pending Ordered 10/24/17 08:48 Blood Fungal Culture Pending Ordered 10/23/17 12:55 Nasal MRSA DNA Surveillance Screen - Final Specimen Negative for MRSA by DNA Probe Complete 10/23/17 17:46 Peritoneal Fluid Gram Stain - Final Resulted 10/23/17 17:46 Peritoneal Fluid Bacterial Culture Pending Resulted Last 24 Hours Test 10/23/17 12:16 10/23/17 13:38 10/23/17 20:34 10/23/17 21:21 Hemoglobin 9.9 g/dL 9.2 g/dL Hematocrit 30.8 % 28.9 % Arterial Blood pH 7.25 Arterial Blood Partial Pressure CO2 51 mmHg Arterial Blood Partial Pressure O2 75 mm/Hg Arterial Blood HCO3 22 mmol/L Arterial Blood Oxygen Saturation 91.5 % Arterial Blood Base Excess -5.0 mEq/L Arterial Blood Gas Delivery 10L Ousmane Test FRANCO Prothrombin Time 11.0 SECONDS Prothromb Time International Ratio 1.0 Activated Partial Thromboplast Time 22.8 SECONDS Partial Thromboplastin Ratio 0.9 Bedside Glucose 124 mg/dl Test 10/24/17 00:05 10/24/17 00:35 10/24/17 05:35 10/24/17 08:37 Bedside Glucose 120 mg/dl Activated Partial Thromboplast Time 30.9 SECONDS 48.5 SECONDS Partial Thromboplastin Ratio 1.2 1.9 White Blood Count 48.11 K/uL Red Blood Count 2.52 M/uL Hemoglobin 8.1 g/dL Hematocrit 24.3 % Mean Corpuscular Volume 96.4 fL Mean Corpuscular Hemoglobin 32.1 pg Mean Corpuscular Hemoglobin Concent 33.3 g/dl Platelet Count 178 K/uL Mean Platelet Volume 10.1 fL RDW Standard Deviation 58.6 fL RDW Coefficient of Variation 16.7 % Neutrophils % (Manual) 100.0 % Lymphocytes % (Manual) 0.0 % Neutrophils # (Manual) 48.11 K/uL Total Absolute Neutrophils 48.11 K/uL Total Absolute Lymphocytes 0.00 K/uL Dohle Bodies 2+ Platelet Estimate NORMAL Ovalocytes 1+ Sodium Level 141 mmol/L Potassium Level 3.5 mmol/L Chloride Level 109 mmol/L Carbon Dioxide Level 27 mmol/L Anion Gap 5.0 mmol/L Blood Urea Nitrogen 17 mg/dl Creatinine 0.80 mg/dl Est Creatinine Clear Calc Drug Dose 34.2 ml/min Estimated GFR () 77.4 Estimated GFR (Non- 66.8 BUN/Creatinine Ratio 21.4 Random Glucose 113 mg/dl Calcium Level 7.2 mg/dl Phosphorus Level 2.8 mg/dl Magnesium Level 2.2 mg/dl Total Bilirubin 0.6 mg/dl Aspartate Amino Transf (AST/SGOT) 17 U/L Alanine Aminotransferase (ALT/SGPT) 28 U/L Alkaline Phosphatase 68 U/L Total Protein 5.1 gm/dl Albumin 2.7 gm/dl Globulin 2.4 gm/dl Albumin/Globulin Ratio 1.1 Test 10/24/17 09:16 Absolute Reticulocyte Count 0.04 10^6/uL Percent Reticulocyte Count 1.4 % [~ rep ct add3]] ABD/PELVIS NO IV OR ORAL CONT CLINICAL HISTORY: 87 years-old Female presenting with severe epigastric pain, pulmonary emboli, pneumoperitoneum, history of large B-cell lymphoma. TECHNIQUE: Multidetector CT of the abdomen and pelvis was performed without the use of intravenous contrast. IV contrast: None. A dose lowering technique was used consistent with the principles of ALARA (as low as reasonably achievable). COMPARISON: CT from 08/17/2017, CTA chest from 10/23/2017, and PET/CT from 08/30/2017. CT DOSE (mGy.cm): The estimated cumulative dose is 690.12 mGy.cm. FINDINGS: Under Ground Miner topogram: Evidence of kyphoplasty at multiple levels. Excreted contrast in the urinary bladder. Lung bases: Increased bibasilar peribronchovascular and dependent consolidation in the bilateral lower lobes. Trace pleural effusions may be present. Partially visualized central venous catheter tip in the SVC. Coronary artery calcification. Normal heart size. No pericardial effusion. Liver: Normal morphology. Normal density. Periportal edema may be present. Biliary: No gross biliary ductal dilatation allowing for noncontrast technique. Gallbladder is distended with gallstones. Allowing for noncontrast technique, mild gallbladder wall thickening may be present. Pancreas: Normal noncontrast appearance. Spleen: Normal noncontrast appearance. Adrenal glands: Nodular thickening of the adrenal glands, nonspecific. Kidneys and ureters: Excreted contrast in the urinary collecting systems. Normal noncontrast appearance of the kidneys apart from a suspected cyst at the lower pole the left kidney. No hydronephrosis. Distal ureters poorly evaluated. Bladder: Excreted contrast in the urinary bladder. Minimal layering debris may be present near the right trigone (series 3 image 323). A pessary is in place. Pelvic organs: Poorly evaluated. Bowel: Diverticulosis of the sigmoid colon. Mild wall thickening of the splenic flexure. Small bowel and appendix poorly assessed secondary to hemoperitoneum. Perienteric inflammatory change suggested in the small bowel mesentery. Suspected perforation of the duodenal bulb (series 3 image 139) given the presence of adjacent extraluminal foci of gas. Extraluminal debris is also noted immediately anterior to the duodenal bulb. No bowel obstruction. Peritoneal cavity: Large pneumoperitoneum in the upper abdomen. High density fluid in the abdomen and pelvis, primarily in the pelvis, concerning for hemoperitoneum. Trace perihepatic more low-density ascites or unclotted blood. Lymph nodes: No gross lymphadenopathy allowing for noncontrast technique. Vasculature: Atherosclerosis of the normal caliber abdominal aorta. Abdominal wall: Extensive body wall edema. Musculoskeletal: Degenerative changes of the spine. Evidence of kyphoplasty at multiple levels and significant chronic deformities. Evidence of osteoporosis with endplate deformities at nearly every level. IMPRESSION: 1. Increasing pneumoperitoneum with suspected perforation of the duodenal bulb evidenced by periduodenal free gas and debris. 2. Significant hemoperitoneum. 3. Suspected perienteric inflammatory change and hepatic flexure wall thickening could be reactive to the perforation. 4. Increasing bibasilar consolidation, possibly atelectasis or developing pulmonary infarcts given known pulmonary emboli. 5. These findings were discussed with Dr. Vasquez Theodore by Dr. Shelton at 8:52 AM on 10/23/2017. Assessment & Plan 87-year-old female with lymphoma on chemotherapy now presents with duodenal perforation with peritonitis, as well as bilateral pulmonary emboli. Now status post emergency laparotomy and repair. Current treatment with Zosyn appropriate pending intraoperative culture results. I will adjust once final results are available. Length of IV antibiotics will be determined by clinical response. Will follow.
[2017-10-24] MEDS ORDERED: PIPERACILL/TAZOBAC CONSULT ACTIVE PRN (12:15)
[2017-10-24] MEDS: ALBUMIN HUMAN 25% 12.5 GM/50 ML VIAL IV SCH ×2 (12:22→12:43)
[2017-10-24] MEDS ORDERED: METOPROLOL TARTRATE 1 MG/ML VIAL ONE (12:39)
[2017-10-24] MEDS: METOPROLOL TARTRATE 1 MG/ML VIAL IV. SCH ×3 (12:42→23:52)
--- NOTE | 2017-10-24 13:17 | Surgery Progress Note ---
Surgery Progress Note Date of Service Oct 24, 2017. Subjective Post OP Day: 1 + feeling well pt feels better, pt denies nausea, no vomiting, good control incisional pain, Objective Vital Signs: Date Time Temp Pulse Resp B/P (MAP) Pulse Ox O2 Delivery O2 Flow Rate FiO2 10/24/17 12:47 86 115/54 (74) 95 10/24/17 12:42 109 122/58 10/24/17 12:28 109 122/57 (78) 94 10/24/17 12:00 36.8 104 18 116/57 (76) 95 Nasal Cannula 4.0 106/58 (74) 10/24/17 12:00 95 Nasal Cannula 4.0 10/24/17 11:00 110 111/49 (69) 88 10/24/17 10:00 120 20 162/65 (97) 92 Nasal Cannula 3.0 153/69 (97) 10/24/17 09:00 101 138/58 (84) 95 10/24/17 08:00 36.7 104 18 120/51 (74) 93 Nasal Cannula 3.0 118/60 (79) 10/24/17 08:00 93 Nasal Cannula 3.0 10/24/17 07:00 103 145/60 (88) 93 Nasal Cannula 3.0 10/24/17 06:00 98 16 126/51 (76) 94 Nasal Cannula 10/24/17 05:00 107 20 147/58 (87) 92 Nasal Cannula 3.0 10/24/17 04:00 111 20 128/51 (76) 93 Oxymask 2.0 10/24/17 04:00 Oxymask 2.0 10/24/17 03:00 108 16 138/59 (85) 93 Oxymask 2.0 10/24/17 02:00 85 20 112/46 (68) 97 Oxymask 2.0 10/24/17 01:00 94 20 112/47 (68) 94 Oxymask 6.0 10/24/17 00:00 Oxymask 10.0 10/24/17 00:00 36.3 94 18 142/62 (88) 100 Oxymask 10.0 10/23/17 22:00 83 84/41 (55) 98 10/23/17 21:30 108 95/42 (59) 96 10/23/17 21:23 119 105/52 10/23/17 21:00 103 101/27 (51) 97 10/23/17 20:00 93 103/38 (59) 95 10/23/17 20:00 97 Oxymask 10.0 10/23/17 19:00 98 122/46 (71) 98 10/23/17 18:00 100 111/43 (65) 98 Oxymask 10.0 10/23/17 17:00 37.3 101 97/40 (59) 95 Oxymask 10.0 10/23/17 16:00 102 149/66 (93) 96 Oxymask 10.0 10/23/17 16:00 98 Oxymask 10.0 10/23/17 15:15 92 22 115/49 (71) 99 Oxymask 10.0 10/23/17 15:00 94 22 111/48 (69) 97 Oxymask 10.0 10/23/17 14:45 99 22 115/50 (71) 98 Oxymask 10.0 10/23/17 14:30 88 20 116/47 (70) 90 Oxymask 10.0 10/23/17 14:15 96 22 119/52 (74) 96 Oxymask 10.0 10/23/17 14:01 98 22 111/50 (70) 95 Oxymask 10.0 10/23/17 14:00 99 22 114/49 (70) 95 Oxymask 10.0 10/23/17 13:46 99 20 113/52 (72) 96 Oxymask 10.0 10/23/17 13:45 105 20 117/53 (74) 96 Oxymask 10.0 10/23/17 13:40 99 22 103/47 (65) 95 Oxymask 10.0 10/23/17 13:30 36.5 109 24 117/69 93 10.0 10/23/17 13:30 106 22 109/51 (70) 95 Oxymask 10.0 10/23/17 13:15 104 22 113/60 (77) 95 Oxymask 10.0 General Appearance: WD/WN, no apparent distress Head: normocephalic Neck: supple, no JVD Respiratory/Chest: chest non-tender, lungs clear Cardiovascular: regular rate, rhythm, no edema, no gallop, no JVD Abdomen: normal bowel sounds, non distended, soft, + tenderness Incision(s): clean, dry, intact Extremities: normal range of motion, non-tender, normal inspection Laboratory Results: Results Past 24 Hours Test 10/23/17 13:38 10/23/17 20:34 10/23/17 21:21 10/24/17 00:05 Range/Units Prothrombin Time 11.0 9.0-12.0 SECONDS Prothromb Time International Ratio 1.0 0.9-1.1 Activated Partial Thromboplast Time 22.8 21.0-31.0 SECONDS Partial Thromboplastin Ratio 0.9 Bedside Glucose 124 120 70-90 mg/dl Hemoglobin 9.2 12.0-16.0 g/dL Hematocrit 28.9 37-47 % Test 10/24/17 00:35 10/24/17 05:35 10/24/17 08:37 10/24/17 09:16 Range/Units Activated Partial Thromboplast Time 30.9 48.5 21.0-31.0 SECONDS Partial Thromboplastin Ratio 1.2 1.9 White Blood Count 48.11 4.8-10.8 K/uL Red Blood Count 2.52 4.2-5.4 M/uL Hemoglobin 8.1 12.0-16.0 g/dL Hematocrit 24.3 37-47 % Mean Corpuscular Volume 96.4 80-100 fL Mean Corpuscular Hemoglobin 32.1 25-34 pg Mean Corpuscular Hemoglobin Concent 33.3 32-36 g/dl Platelet Count 178 130-400 K/uL Mean Platelet Volume 10.1 7.4-10.4 fL RDW Standard Deviation 58.6 36.4-46.3 fL RDW Coefficient of Variation 16.7 11.5-14.5 % Neutrophils % (Manual) 100.0 % Lymphocytes % (Manual) 0.0 % Neutrophils # (Manual) 48.11 1.4-6.5 K/uL Total Absolute Neutrophils 48.11 1.4-6.5 K/uL Total Absolute Lymphocytes 0.00 1.2-3.4 K/uL Dohle Bodies 2+ Platelet Estimate NORMAL Ovalocytes 1+ Sodium Level 141 136-145 mmol/L Potassium Level 3.5 3.5-5.1 mmol/L Chloride Level 109 98-107 mmol/L Carbon Dioxide Level 27 21-32 mmol/L Anion Gap 5.0 3-11 mmol/L Blood Urea Nitrogen 17 7-18 mg/dl Creatinine 0.80 0.60-1.20 mg/dl Est Creatinine Clear Calc Drug Dose 34.2 ml/min Estimated GFR () 77.4 Estimated GFR (Non- 66.8 BUN/Creatinine Ratio 21.4 10-20 Random Glucose 113 70-99 mg/dl Calcium Level 7.2 8.5-10.1 mg/dl Phosphorus Level 2.8 2.5-4.9 mg/dl Magnesium Level 2.2 1.8-2.4 mg/dl Total Bilirubin 0.6 0.2-1 mg/dl Aspartate Amino Transf (AST/SGOT) 17 15-37 U/L Alanine Aminotransferase (ALT/SGPT) 28 12-78 U/L Alkaline Phosphatase 68 45-117 U/L Total Protein 5.1 6.4-8.2 gm/dl Albumin 2.7 3.4-5.0 gm/dl Globulin 2.4 2.5-4.0 gm/dl Albumin/Globulin Ratio 1.1 0.9-2 Absolute Reticulocyte Count 0.04 0.02-0.10 10^6/uL Percent Reticulocyte Count 1.4 0.5-2.0 % Microbiology Results 10/24/17 Fungal Smear, Ordered Pending 10/24/17 Fungal Culture, Ordered Pending 10/23/17 Gram Stain - Final, Resulted 10/23/17 Bacterial Culture, Resulted Pending Assessment & Plan pt is stable, good urine output D/W ICU attending about treatment plan for PE , ID consult for possible sepsis continue treatment iv antibiotic, iv fluid peritoneal fluid culture repeat labs in am, will F/U 10/24/2017 I update about OR finding and the surgery pt had, pt understood, I answered all questions, continue treatment, repeat labs in am, will F/U pt is stable, good urine output D/W ICU attending about treatment plan for PE , ID consult for possible sepsis continue treatment iv antibiotic, iv fluid peritoneal fluid culture repeat labs in am, will F/U
[2017-10-24] MEDS: LACTATED RINGER'S 1000ML 1,000 ML IV SCH ×2 (13:31→23:09)
[2017-10-24 13:59] LABS: HEMATOCRIT 22.8 % (37-47); HEMOGLOBIN 7.5 g/dL (12.0-16.0)
--- NOTE | 2017-10-24 14:56 | Medical Consult ---
Consultation Note Date of Service Oct 24, 2017. Consultation Note Asked to provide opinion regarding anticoagulation in this 87 year old woman with a history of lymphoma, now with markedly elevated white count, recent perforated duodenal ulcer and multiple recent bilateral segmental and subsegmental PE. The patient underwent repair of perforated viscus the morning of 10/23 and therapeutic IV heparin (low dose, no bolus) was begun at 7 pm, 6 hours post op. Her last aPTT was at 8:37 this morning and was at 1.9 x control. Her hemoglobin and hematocrit values are trending downward but there have been no dramatic drops since beginning anticoagulation. I have been asked to provide opinion. We are now greater than 24 hours post op. In light of the severity of her pulmonary emboli, therapeutic anticoagulation with unfractionated heparin should continue. The patient's hemoglobin and hematocrit values should be monitored closely (q4-6 hours if necessary) and she should be transfused with pRBCs as needed. In light of the heparin anticoagulation, I would be reluctant to transfuse FFP. Should bleeding occur, an IVC filter could be considered, however, I have discussed the case with the patient's oncologist, Dr. Trimble, and while he agrees with the strategy outlined above, he is reluctant to commit the patient to an IVC filter. Should this option be further considered, he should be contacted for opinion.
--- NOTE | 2017-10-24 16:13 | DIAGNOSTIC IMAGING REPORT ---
BILATERAL LOWER EXTREMITY VENOUS DOPPLER HISTORY: Assess for DVT. known pulmonary embolus, active cancer, may require IVC filter COMPARISON STUDY: None. FINDINGS: There is normal compressibility, flow, and augmentation within the bilateral lower extremity deep venous systems. IMPRESSION: No DVT within the right or left lower extremity. Electronically signed by: Edd Pelaez M.D. 10/24/2017 4:12 PM Dictated Date/Time: 10/24/2017 4:11 PM
[2017-10-24 18:14] LABS: HEMATOCRIT 21.9 % (37-47); HEMOGLOBIN 7.2 g/dL (12.0-16.0)
--- NOTE | 2017-10-24 19:16 | Critical Care Progress Note ---
Critical Care Progress Note Date of Service Oct 24, 2017. ICU Day ICU Day Number: [address] Palacios Subjective Patient's pain has improved since yesterday. Has not moved her bowels. Initially complained of abdominal binder rubbing up against breast tissue, this was modified by bedside nursing. No chest pain no shortness of breath. Has been encouraged to use incentive spirometer. Objective General Appearance: No acute distress, utilizing flutter valve when I entered the room Eyes: PERRLA, no discharge, EOMI, sclerae normal, scleral icterus Neck: normal range of motion, no tenderness, trachea midline, no stridor, supple, no thyromegaly, no lymphadenopathy, no meningismus Respiratory: breath sounds normal, clear to auscultation, clear to percussion, no respiratory distress Cardiovasular: regular rate/rhythm, normal S1S2, no M/G/R, no murmur Abdomen: Abdominal binder in place, I removed this to facilitate a abdominal ultrasound as well as physical examination, mild shadowing on bandages, no shadowing outside of previously marked edge, FAST scan negative Genitourinary - Female: other (Sotelo in place) Upper Extremities: normal ROM Lower Extremities: no deformity, normal ROM Neuro: alert, oriented x 3, normal motor exam Assessment & Plan Reason Critically Ill: 87-year-old female with known malignancy who has a perforated viscus, and acute PE PLAN: Neuro: Postoperative pain control * Morphine and Dilaudid per general surgery Resp: Bilateral pulmonary emboli * Low intensity heparin infusion * Discussed with Dr. Jean as well as Dr. Sandoval please refer to their documentation Pleural effusion, left side * Likely reactionary to recent surgery * Continue incentive spirometry CV: Hypertension * Propranolol 20 mg daily per prior records as outpatient Tachycardia with premature atrial complexes * 5 mg Lopressor IV every 6 hours Fluids/Renal: Lactated Ringer's at 100 and mils an hour * Improved renal function compared to yesterday * Approximately 2.5 L positive * Gastric drain bilious, no evidence of cailin luminal bleeding * ALIYA drain, becoming less sanguinous, no significant evidence to suggest extraluminal bleeding ID: Patient last had chemotherapy on October 20, discussed with Dr. Jean patient likely reaching maximum point of bone marrow suppression * Perforated viscus * Vancomycin and Zosyn * Given recent chemotherapy added fungal coverage as well as fungal blood culture * Will continue antibiotics until culture results are finalized, patient is relative immunocompromised GI/Nutrition: N.p.o. * Minimal NG output, anticipate enteral feeding soon * Deferring start of enteral feeding to general surgery Heme: Bilateral pulmonary emboli Anemia (likely multifactorial, iatrogenic secondary to phlebotomy and bone marrow suppression) * Continue to trend H&H, transfuse and trigger will be 6.5 hemoglobin * Lactic acid remains negative, no clinical or laboratory evidence of endorgan ischemia at this time * NG suction does not show any evidence of intraluminal bleeding, ALIYA drain improving no significant evidence of extraluminal bleeding, fast scan also negative * When discussing phlebotomy technique with nursing, she does not have a safe set on the arterial line there is significant waste with her serial labs * I have instructed all future labs to be drawn from the A-line with connection of the safety set as well as to utilize pediatric tubes for phlebotomy * Risk-benefit ratio of anticoagulation and transfusion versus no anticoagulation, patient has no therapeutic alternative for progression of pulmonary emboli as she is not a candidate for TPA given recent abdominal surgery * There is no evidence of DVT in the lower extremities * Patient high risk for clot burden progression as she has an active malignancy undergoing active chemotherapy status post high risk surgery Endocrine: Accu-Cheks per ICU protocol Activity: Encourage out of bed to chair as well as early ambulation. I have personally spent 90 minutes of critical care time in the direct management of this patient. This is a life/limb threatening event. This includes time spent evaluating patient, direct bedside care, chart review, placing orders, interpretation of diagnostic studies, discussion with consultants, patient, and/or family members regarding treatment decisions, as well as other required patient management activities. This time is exclusive of all separately billable procedures, and teaching time and separate from and in addition to any other critical care service time, and this critical care service is related to her pulmonary emboli and anemia secondary to likely bone marrow suppression as well as phlebotomy Data Medications: Current Inpatient Medications Medications (Trade) Dose Ordered Sig/Madonna Route Start Time Stop Time Status Last Admin Dose Admin Ioversol (Optiray 320) 100 ml UD PRN IV 10/23/17 06:00 10/27/17 05:59 Lactated Ringer's 1,000 ml @ 100 mls/hr Q10H IV 10/23/17 10:57 11/22/17 10:56 10/24/17 13:31 100 MLS/HR Piperacillin Sod/ Tazobactam Sod 3.375 gm/Dextrose 115 ml @ 28.7 mls/hr Q8H IV 10/23/17 16:00 10/30/17 23:59 10/24/17 15:35 28.7 MLS/HR Ondansetron HCl (Zofran Inj) 4 mg Q4H PRN IV 10/23/17 11:00 11/22/17 10:59 Morphine Sulfate (MoRPHine SULFATE INJ) 2 mg Q3HWA PRN IV 10/23/17 11:00 11/06/17 10:59 10/24/17 15:35 2 MG Pantoprazole Sodium 40 mg/ Syringe 10 ml @ 5 mls/min BID@0900,2100 IV 10/23/17 21:00 11/22/17 20:59 10/24/17 09:22 5 MLS/MIN Heparin Sodium/ Dextrose 500 ml @ 15 mls/hr Q24H PRN IV 10/23/17 19:00 11/22/17 18:59 10/23/17 19:24 13 MLS/HR Menthol (Nice Jaydon) 1 jaydon PRN PRN JAYDON 10/23/17 21:00 11/22/17 20:59 Fluconazole/ Sodium Chloride 200 mg/Prmx 100 ml @ 100 mls/hr QAM IV 10/25/17 09:00 10/30/17 09:59 Hydromorphone HCl (Dilaudid Inj) 0.5 mg Q3H PRN IV 10/24/17 10:30 11/06/17 10:59 Metoprolol Tartrate (Lopressor Iv) 5 mg Q6 IV. 10/24/17 12:15 11/23/17 12:14 10/24/17 18:03 5 MG Miscellaneous Information (Consult) 1 ea UD PRN N/A 10/24/17 12:15 11/23/17 12:14 I & O: 24-Hour Column 10/25/17 08:00 Intake Total 1120 ml Output Total 885 ml Balance 235 ml Vital Signs: Date Time Temp Pulse Resp B/P (MAP) Pulse Ox O2 Delivery O2 Flow Rate FiO2 10/24/17 18:03 96 141/62 10/24/17 18:00 90 138/60 (86) 97 Nasal Cannula 3.0 10/24/17 16:00 36.8 101 20 131/62 (85) 97 Nasal Cannula 4.0 10/24/17 16:00 97 Nasal Cannula 4.0 10/24/17 14:00 36.7 85 20 134/61 (85) 95 Nasal Cannula 4.0 10/24/17 13:15 89 112/56 (74) 94 10/24/17 12:47 86 115/54 (74) 95 10/24/17 12:42 109 122/58 10/24/17 12:28 109 122/57 (78) 94 10/24/17 12:00 36.8 104 18 116/57 (76) 95 Nasal Cannula 4.0 106/58 (74) 10/24/17 12:00 95 Nasal Cannula 4.0 10/24/17 11:00 110 111/49 (69) 88 10/24/17 10:00 120 20 162/65 (97) 92 Nasal Cannula 3.0 153/69 (97) 10/24/17 09:00 101 138/58 (84) 95 10/24/17 08:00 36.7 104 18 120/51 (74) 93 Nasal Cannula 3.0 118/60 (79) 10/24/17 08:00 Nasal Cannula 10/24/17 08:00 93 Nasal Cannula 3.0 10/24/17 07:00 103 145/60 (88) 93 Nasal Cannula 3.0 10/24/17 06:00 98 16 126/51 (76) 94 Nasal Cannula 10/24/17 05:00 107 20 147/58 (87) 92 Nasal Cannula 3.0 10/24/17 04:00 111 20 128/51 (76) 93 Oxymask 2.0 10/24/17 04:00 Oxymask 2.0 10/24/17 03:00 108 16 138/59 (85) 93 Oxymask 2.0 10/24/17 02:00 85 20 112/46 (68) 97 Oxymask 2.0 10/24/17 01:00 94 20 112/47 (68) 94 Oxymask 6.0 10/24/17 00:00 Oxymask 10.0 10/24/17 00:00 36.3 94 18 142/62 (88) 100 Oxymask 10.0 10/23/17 22:00 83 84/41 (55) 98 10/23/17 21:30 108 95/42 (59) 96 10/23/17 21:23 119 105/52 10/23/17 21:00 103 101/27 (51) 97 10/23/17 20:00 93 103/38 (59) 95 10/23/17 20:00 97 Oxymask 10.0 10/23/17 19:00 98 122/46 (71) 98 Laboratory Results: Last 24 Hours Test 10/23/17 20:34 10/23/17 21:21 10/24/17 00:05 10/24/17 00:35 Bedside Glucose 124 mg/dl 120 mg/dl Hemoglobin 9.2 g/dL Hematocrit 28.9 % Activated Partial Thromboplast Time 30.9 SECONDS Partial Thromboplastin Ratio 1.2 Test 10/24/17 05:35 10/24/17 08:37 10/24/17 09:16 10/24/17 13:39 White Blood Count 48.11 K/uL Red Blood Count 2.52 M/uL Hemoglobin 8.1 g/dL 7.5 g/dL Hematocrit 24.3 % 22.8 % Mean Corpuscular Volume 96.4 fL Mean Corpuscular Hemoglobin 32.1 pg Mean Corpuscular Hemoglobin Concent 33.3 g/dl Platelet Count 178 K/uL Mean Platelet Volume 10.1 fL RDW Standard Deviation 58.6 fL RDW Coefficient of Variation 16.7 % Neutrophils % (Manual) 100.0 % Lymphocytes % (Manual) 0.0 % Neutrophils # (Manual) 48.11 K/uL Total Absolute Neutrophils 48.11 K/uL Total Absolute Lymphocytes 0.00 K/uL Dohle Bodies 2+ Platelet Estimate NORMAL Ovalocytes 1+ Sodium Level 141 mmol/L Potassium Level 3.5 mmol/L Chloride Level 109 mmol/L Carbon Dioxide Level 27 mmol/L Anion Gap 5.0 mmol/L Blood Urea Nitrogen 17 mg/dl Creatinine 0.80 mg/dl Est Creatinine Clear Calc Drug Dose 34.2 ml/min Estimated GFR () 77.4 Estimated GFR (Non- 66.8 BUN/Creatinine Ratio 21.4 Random Glucose 113 mg/dl Calcium Level 7.2 mg/dl Phosphorus Level 2.8 mg/dl Magnesium Level 2.2 mg/dl Total Bilirubin 0.6 mg/dl Aspartate Amino Transf (AST/SGOT) 17 U/L Alanine Aminotransferase (ALT/SGPT) 28 U/L Alkaline Phosphatase 68 U/L Total Protein 5.1 gm/dl Albumin 2.7 gm/dl Globulin 2.4 gm/dl Albumin/Globulin Ratio 1.1 Activated Partial Thromboplast Time 48.5 SECONDS Partial Thromboplastin Ratio 1.9 Absolute Reticulocyte Count 0.04 10^6/uL Percent Reticulocyte Count 1.4 % Test 10/24/17 18:00 Hemoglobin 7.2 g/dL Hematocrit 21.9 % Lactic Acid Level 0.7 mmol/L
--- NOTE | 2017-10-24 19:19 | Procedure Note ---
Procedure Note Date of Service Oct 24, 2017. Procedure Note Critical Care Medicine Point of Care Bedside Ultrasound Procedure: Extended FAST ultrasound Indication: Anemia, recent bowel surgery Date: October 24, 2017 Attending: Sharonda Palacios DO Physician Mobile Plant Operators: Not applicable Organs Examined: Lung, Liver, Kidney, Spleen, Genitourinary system Hepatorenal fluid: Absent Splenorenal fluid: Absent Rectovesical fluid: Absent, Sotelo ball was able to be visualized, bladder decompressed Additional Findings: None Extended FAST: for pneumothorax and pleural fluid Pleural effusion: Present, Location: Left chest Lung sliding: Present, Location: Bilaterally Impression: No evidence of free fluid within the peritoneal cavity, small simple pleural effusion noted in the left chest Images obtained are saved for permanent record
--- NOTE | 2017-10-24 20:27 | Infectious Disease Progress Nt ---
Progress Note Date of Service Oct 24, 2017. Subjective Pt evaluation today including: conversation w/ patient, conversation w/ family , physical exam, chart review, lab review, review of studies, conversation w/ admissions consultant, review of inpatient medication list Patient appears more comfortable today. States abdominal pain slightly less. No increase in shortness of breath or chest pain. Has been afebrile throughout the day. Continues tolerating antibiotics without apparent difficulty. Lower extremity Doppler negative for DVT. All Other Systems: Reviewed and Negative Medications Current Inpatient Medications Medications (Trade) Dose Ordered Sig/Madonna Route Start Time Stop Time Status Last Admin Dose Admin Ioversol (Optiray 320) 100 ml UD PRN IV 10/23/17 06:00 10/27/17 05:59 Lactated Ringer's 1,000 ml @ 100 mls/hr Q10H IV 10/23/17 10:57 11/22/17 10:56 10/24/17 13:31 100 MLS/HR Piperacillin Sod/ Tazobactam Sod 3.375 gm/Dextrose 115 ml @ 28.7 mls/hr Q8H IV 10/23/17 16:00 10/30/17 23:59 10/24/17 15:35 28.7 MLS/HR Ondansetron HCl (Zofran Inj) 4 mg Q4H PRN IV 10/23/17 11:00 11/22/17 10:59 Morphine Sulfate (MoRPHine SULFATE INJ) 2 mg Q3HWA PRN IV 10/23/17 11:00 11/06/17 10:59 10/24/17 20:10 2 MG Pantoprazole Sodium 40 mg/ Syringe 10 ml @ 5 mls/min BID@0900,2100 IV 10/23/17 21:00 11/22/17 20:59 10/24/17 20:06 5 MLS/MIN Heparin Sodium/ Dextrose 500 ml @ 15 mls/hr Q24H PRN IV 10/23/17 19:00 11/22/17 18:59 10/23/17 19:24 13 MLS/HR Menthol (Nice Jaydon) 1 jaydon PRN PRN JAYDON 10/23/17 21:00 11/22/17 20:59 Fluconazole/ Sodium Chloride 200 mg/Prmx 100 ml @ 100 mls/hr QAM IV 10/25/17 09:00 10/30/17 09:59 Hydromorphone HCl (Dilaudid Inj) 0.5 mg Q3H PRN IV 10/24/17 10:30 11/06/17 10:59 Metoprolol Tartrate (Lopressor Iv) 5 mg Q6 IV. 10/24/17 12:15 11/23/17 12:14 10/24/17 18:03 5 MG Miscellaneous Information (Consult) 1 ea UD PRN N/A 10/24/17 12:15 11/23/17 12:14 Objective Vital Signs Date Time Temp Pulse Resp B/P (MAP) Pulse Ox O2 Delivery O2 Flow Rate FiO2 10/24/17 18:03 96 141/62 10/24/17 18:00 90 138/60 (86) 97 Nasal Cannula 3.0 10/24/17 16:00 36.8 101 20 131/62 (85) 97 Nasal Cannula 4.0 10/24/17 16:00 97 Nasal Cannula 4.0 10/24/17 14:00 36.7 85 20 134/61 (85) 95 Nasal Cannula 4.0 10/24/17 13:15 89 112/56 (74) 94 10/24/17 12:47 86 115/54 (74) 95 10/24/17 12:42 109 122/58 10/24/17 12:28 109 122/57 (78) 94 10/24/17 12:00 36.8 104 18 116/57 (76) 95 Nasal Cannula 4.0 106/58 (74) 10/24/17 12:00 95 Nasal Cannula 4.0 10/24/17 11:00 110 111/49 (69) 88 10/24/17 10:00 120 20 162/65 (97) 92 Nasal Cannula 3.0 153/69 (97) 10/24/17 09:00 101 138/58 (84) 95 10/24/17 08:00 36.7 104 18 120/51 (74) 93 Nasal Cannula 3.0 118/60 (79) 10/24/17 08:00 Nasal Cannula 10/24/17 08:00 93 Nasal Cannula 3.0 10/24/17 07:00 103 145/60 (88) 93 Nasal Cannula 3.0 10/24/17 06:00 98 16 126/51 (76) 94 Nasal Cannula 10/24/17 05:00 107 20 147/58 (87) 92 Nasal Cannula 3.0 10/24/17 04:00 111 20 128/51 (76) 93 Oxymask 2.0 10/24/17 04:00 Oxymask 2.0 10/24/17 03:00 108 16 138/59 (85) 93 Oxymask 2.0 10/24/17 02:00 85 20 112/46 (68) 97 Oxymask 2.0 10/24/17 01:00 94 20 112/47 (68) 94 Oxymask 6.0 10/24/17 00:00 Oxymask 10.0 10/24/17 00:00 36.3 94 18 142/62 (88) 100 Oxymask 10.0 10/23/17 22:00 83 84/41 (55) 98 10/23/17 21:30 108 95/42 (59) 96 10/23/17 21:23 119 105/52 10/23/17 21:00 103 101/27 (51) 97 Physical Exam General Appearance: WD/WN, no apparent distress Eyes: normal inspection, EOMI, sclerae normal ENT: normal ENT inspection, hearing grossly normal, pharynx normal Neck: supple, no adenopathy, thyroid normal, trachea midline Respiratory/Chest: chest non-tender, lungs clear, normal breath sounds, no respiratory distress Cardiovascular: regular rate, rhythm, no gallop, no murmur Abdomen: soft, no organomegaly, + abnormal bowel sounds (Decreased), + tenderness Extremities: non-tender, no calf tenderness Neurologic/Psychiatric: alert, oriented x 3 Skin: normal color, warm/dry, no rash Lymphatic: no adenopathy Laboratory Results RUN DATE: 10/24/17 [facility] LAB PAGE 1 RUN TIME: 1352 Specimen Inquiry PATIENT: DON YORK LOC: AGUSTINA # : [id number] AGE/SX: 87/F ROOM: E109 REG : 10/23/[address]: Hakeem Payne MD : [id number] BED: 1 DIS : STATUS: ADM IN TLOC: SPEC #: [id number] CLAIRE: 10/23/17 STATUS: RES REQ #: [id number] RECD: 10/23/[address] [facility] [address]: Hakeem Payne MD SOURCE: PER FLD ENTR: 10/23/17 [facility] DR: Delio Carter M.D. SPDESC: Demian Hammer MD, Jessica ., Roberto Osman , D.OSanjana ORDERED: AER/DIXIE CULTSMR COMMENTS: Comments to Nurse Discharge From drain Has Specimen Been Obtained/Collected? Y Procedure Result Verified Site GRAM STAIN Final 10/24/17-0708 RESULT MANY POLYS NO ORGANISMS SEEN OR AER/DIXIE CULT Preliminary 10/24/17-1352 NO GROWTH TO DATE. Last 24 Hours Test 10/23/17 20:34 10/23/17 21:21 10/24/17 00:05 10/24/17 00:35 Bedside Glucose 124 mg/dl 120 mg/dl Hemoglobin 9.2 g/dL Hematocrit 28.9 % Activated Partial Thromboplast Time 30.9 SECONDS Partial Thromboplastin Ratio 1.2 Test 10/24/17 05:35 10/24/17 08:37 10/24/17 09:16 10/24/17 13:39 White Blood Count 48.11 K/uL Red Blood Count 2.52 M/uL Hemoglobin 8.1 g/dL 7.5 g/dL Hematocrit 24.3 % 22.8 % Mean Corpuscular Volume 96.4 fL Mean Corpuscular Hemoglobin 32.1 pg Mean Corpuscular Hemoglobin Concent 33.3 g/dl Platelet Count 178 K/uL Mean Platelet Volume 10.1 fL RDW Standard Deviation 58.6 fL RDW Coefficient of Variation 16.7 % Neutrophils % (Manual) 100.0 % Lymphocytes % (Manual) 0.0 % Neutrophils # (Manual) 48.11 K/uL Total Absolute Neutrophils 48.11 K/uL Total Absolute Lymphocytes 0.00 K/uL Dohle Bodies 2+ Platelet Estimate NORMAL Ovalocytes 1+ Sodium Level 141 mmol/L Potassium Level 3.5 mmol/L Chloride Level 109 mmol/L Carbon Dioxide Level 27 mmol/L Anion Gap 5.0 mmol/L Blood Urea Nitrogen 17 mg/dl Creatinine 0.80 mg/dl Est Creatinine Clear Calc Drug Dose 34.2 ml/min Estimated GFR () 77.4 Estimated GFR (Non- 66.8 BUN/Creatinine Ratio 21.4 Random Glucose 113 mg/dl Calcium Level 7.2 mg/dl Phosphorus Level 2.8 mg/dl Magnesium Level 2.2 mg/dl Total Bilirubin 0.6 mg/dl Aspartate Amino Transf (AST/SGOT) 17 U/L Alanine Aminotransferase (ALT/SGPT) 28 U/L Alkaline Phosphatase 68 U/L Total Protein 5.1 gm/dl Albumin 2.7 gm/dl Globulin 2.4 gm/dl Albumin/Globulin Ratio 1.1 Activated Partial Thromboplast Time 48.5 SECONDS Partial Thromboplastin Ratio 1.9 Absolute Reticulocyte Count 0.04 10^6/uL Percent Reticulocyte Count 1.4 % Test 10/24/17 18:00 10/24/17 18:52 Hemoglobin 7.2 g/dL Hematocrit 21.9 % Lactic Acid Level 0.7 mmol/L Bedside Glucose 111 mg/dl Patient Name: DON YORK Unit Number: [id number] Dictated: 10/24/171610 Transcribed: 10/24/171610 [facility] Printed Date/Time: [~ rep prt dt]/[~ rep prt tm] [~ rep ct labl] - [~ rep ct ivnm] [facility] [place] [address] Dictated: 10/24/171610 Transcribed: 10/24/171610 [facility] Printed Date/Time: [~ rep prt dt]/[~ rep prt tm] [~ rep ct labl] - [~ rep ct ivnm] [~ rep ct add3]] BILATERAL LOWER EXTREMITY VENOUS DOPPLER HISTORY: Assess for DVT. known pulmonary embolus, active cancer, may require IVC filter COMPARISON STUDY: None. FINDINGS: There is normal compressibility, flow, and augmentation within the bilateral lower extremity deep venous systems. IMPRESSION: No DVT within the right or left lower extremity. Electronically signed by: Edd Pelaez M.D. 10/24/2017 4:12 PM Dictated Date/Time: 10/24/2017 4:11 PM The status of this report is Signed. Draft = Not yet reviewed or approved by Radiologist. Signed = Reviewed and approved by Radiologist. <AttendingPhy>Hakeem Payne MD</AttendingPhy> <FamilyPhy>Delio Carter M.D.</FamilyPhy> <PrimaryPhy>Delio Carter M.D.</PrimaryPhy> < UnitNumber>[id number]</UnitNumber> <VisitNumber>[id number]</VisitNumber> < PatientName>ADRIÁNPHUDON</PatientName> <DateOfBirth>1930</DateOfBirth > <Location>C.MSICU</Location> <ServiceDate>10/23/17</ServiceDate> <MNE>ESINDI</ MNE> <OrderingPhy>Roberto Palacios D.O.</OrderingPhy> <OrderingPhyMNE>f rep ord dr bernard</OrderingPhyMNE> <DictatingPhyMNE>f rep dict dr bernard</DictatingPhyMNE > <CCListMNE>f rep ct mne</CCListMNE> <AdmittingPhyMNE>f pt admit dr bernard</ AdmittingPhyMNE> <AttendingPhyMNE>f pt attend dr bernard</AttendingPhyMNE> <ConsultingPhyMNE>f pt consult dr bernard</ConsultingPhyMNE> <FamilyPhyMNE>f pt fam dr bernard</FamilyPhyMNE> <OtherPhyMNE>f pt other dr bernard</OtherPhyMNE> < PrimaryPhyMNE>f pt prim care dr bernard</PrimaryPhyMNE> <ReferringPhyMNE>f pt referring dr bernard</ReferringPhyMNE> Assessment and Plan 87-year-old female with lymphoma on chemotherapy now presents with duodenal perforation with peritonitis, as well as bilateral pulmonary emboli. Now status post emergency laparotomy and repair. Current treatment with Zosyn appropriate pending intraoperative culture results. I will adjust once final results are available. Length of IV antibiotics will be determined by clinical response. Will follow.
[2017-10-24 23:18] LABS: HEMATOCRIT 23.4 % (37-47); HEMOGLOBIN 7.6 g/dL (12.0-16.0)
[2017-10-25] VITALS (21 sets, daily range): BP systolic 113–192; BP diastolic 46–90; PULSE 73–96; TEMP 36.6–36.8; O2SAT 93–98
[2017-10-25] MEDS: MoRPHine SULFATE 2 MG/ML CARP IV PRN ×2 (04:27→15:43)
[2017-10-25 06:11] LABS: HEMATOCRIT 22.4 % (37-47); HEMOGLOBIN 6.8 g/dL (12.0-16.0); MEAN CORPUSCULAR HEMOGLOBIN 29.4 pg (25-34); MEAN CORPUSCULAR HGB CONC 30.4 g/dl (32-36); MEAN PLATELET VOLUME 10.4 fL (7.4-10.4); PLATELET COUNT 105 K/uL (130-400); RED CELL DISTRIBUTION WIDTH CV 16.7 % (11.5-14.5); RED CELL DISTRIBUTION WIDTH SD 58.3 fL (36.4-46.3); WHITE BLOOD COUNT 20.97 K/uL (4.8-10.8)
[2017-10-25 06:20] LABS: PTT PATIENT 39.1 SECONDS (21.0-31.0)
[2017-10-25] MEDS ORDERED: HEPARIN IV BOLUS 4,000 UNIT in SYRINGE 0 ML IV STA (06:40)
[2017-10-25 06:45] LABS: CALCIUM 7.4 mg/dl (8.5-10.1); CREATININE 0.68 mg/dl (0.60-1.20); PHOSPHORUS 2.1 mg/dl (2.5-4.9); POTASSIUM 3.2 mmol/L (3.5-5.1)
[2017-10-25] MEDS: METOPROLOL TARTRATE 1 MG/ML VIAL IV. SCH ×3 (07:00→18:33)
[2017-10-25] MEDS: HEPARIN 25,000 UNIT/500ML D5W 500 ML IV PRN (07:01)
--- NOTE | 2017-10-25 07:12 | DIAGNOSTIC IMAGING REPORT ---
CHEST ONE VIEW PORTABLE CLINICAL HISTORY: PE dyspnea COMPARISON STUDY: 09/04/2017 FINDINGS: Nasogastric tube coiled in the gastric fundus. The tip is at the gastroesophageal junction. Mild atelectatic and/or infiltrative change left lung base. Lungs otherwise are clear. Central catheter ends in the superior cava. Multiple vertebral plasties which of been described previously. IMPRESSION: 1. Nasogastric tube coiled within the gastric fundus with the tip at the gastroesophageal junction. 2. Atelectatic versus minimal infiltrative change left base. 3. Central catheter within the superior vena cava. The above report was generated using voice recognition software. It may contain grammatical, syntax or spelling errors. Electronically signed by: Sushant Sutton M.D. 10/25/2017 7:11 AM Dictated Date/Time: 10/25/2017 7:09 AM
--- NOTE | 2017-10-25 07:14 | DIAGNOSTIC IMAGING REPORT ---
RIN CLINICAL HISTORY: S/P repair bowel perforation postoperative evaluation COMPARISON STUDY: 10/23/2017 FINDINGS: Nasogastric tube is coiled at gastric fundus. Nonobstructive bowel pattern. Surgical drains and soft tissue pelvis. IMPRESSION: 1. Postoperative changes. 2. Nonobstructive bowel pattern. 3. Nasogastric tube coiled at the gastric fundus with tip at the gastroesophageal junction. The above report was generated using voice recognition software. It may contain grammatical, syntax or spelling errors. Electronically signed by: Sushant Sutton M.D. 10/25/2017 7:13 AM Dictated Date/Time: 10/25/2017 7:11 AM
[2017-10-25] MEDS ORDERED: BISACODYL 10 MG SUPP PR STA (07:42)
[2017-10-25] MEDS: LACTATED RINGER'S 1000ML 1,000 ML IV SCH ×3 (07:58→21:36)
--- NOTE | 2017-10-25 07:58 | Surgery Progress Note ---
Surgery Progress Note Date of Service Oct 25, 2017. Subjective Post OP Day: 2 + feeling well pt is stable, less abdominal pain, no nausea, no vomiting, NGT- minimal. Objective Vital Signs: Date Time Temp Pulse Resp B/P (MAP) Pulse Ox O2 Delivery O2 Flow Rate FiO2 10/25/17 07:00 92 10/25/17 06:00 84 20 123/46 (71) 95 Nasal Cannula 2.0 10/25/17 04:00 Nasal Cannula 2.0 10/25/17 04:00 36.8 78 18 113/47 (69) 96 Nasal Cannula 2.0 10/25/17 02:00 81 18 158/54 (88) 97 Nasal Cannula 2.0 10/25/17 00:01 36.8 79 16 147/57 (87) 94 Nasal Cannula 2.0 10/24/17 23:59 Nasal Cannula 2.0 10/24/17 23:52 87 148/52 10/24/17 22:00 85 18 155/56 (89) 95 Nasal Cannula 2.0 10/24/17 20:00 95 Nasal Cannula 2.0 10/24/17 20:00 36.6 87 18 191/69 (109) 95 Nasal Cannula 2.0 10/24/17 18:03 96 141/62 10/24/17 18:00 90 138/60 (86) 97 Nasal Cannula 3.0 10/24/17 16:00 36.8 101 20 131/62 (85) 97 Nasal Cannula 4.0 10/24/17 16:00 97 Nasal Cannula 4.0 10/24/17 14:00 36.7 85 20 134/61 (85) 95 Nasal Cannula 4.0 10/24/17 13:15 89 112/56 (74) 94 10/24/17 12:47 86 115/54 (74) 95 10/24/17 12:42 109 122/58 10/24/17 12:28 109 122/57 (78) 94 10/24/17 12:00 36.8 104 18 116/57 (76) 95 Nasal Cannula 4.0 106/58 (74) 10/24/17 12:00 95 Nasal Cannula 4.0 10/24/17 11:00 110 111/49 (69) 88 10/24/17 10:00 120 20 162/65 (97) 92 Nasal Cannula 3.0 153/69 (97) 10/24/17 09:00 101 138/58 (84) 95 10/24/17 08:00 36.7 104 18 120/51 (74) 93 Nasal Cannula 3.0 118/60 (79) 10/24/17 08:00 Nasal Cannula 10/24/17 08:00 93 Nasal Cannula 3.0 General Appearance: WD/WN, no apparent distress Head: normocephalic Neck: supple, no JVD Respiratory/Chest: chest non-tender, lungs clear Cardiovascular: regular rate, rhythm, no edema, no JVD Abdomen: normal bowel sounds, non tender, non distended, soft Incision(s): clean, dry, intact Extremities: normal range of motion, non-tender, normal inspection Laboratory Results: Results Past 24 Hours Test 10/24/17 08:37 10/24/17 09:16 10/24/17 13:39 10/24/17 18:00 Range/Units Activated Partial Thromboplast Time 48.5 21.0-31.0 SECONDS Partial Thromboplastin Ratio 1.9 Absolute Reticulocyte Count 0.04 0.02-0.10 10^6/uL Percent Reticulocyte Count 1.4 0.5-2.0 % Hemoglobin 7.5 7.2 12.0-16.0 g/dL Hematocrit 22.8 21.9 37-47 % Lactic Acid Level 0.7 0.4-2.0 mmol/L Test 10/24/17 18:52 10/24/17 23:00 10/25/17 00:40 10/25/17 05:47 Range/Units Bedside Glucose 111 104 70-90 mg/dl Hemoglobin 7.6 6.8 12.0-16.0 g/dL Hematocrit 23.4 22.4 37-47 % White Blood Count 20.97 4.8-10.8 K/uL Red Blood Count 2.31 4.2-5.4 M/uL Mean Corpuscular Volume 97.0 80-100 fL Mean Corpuscular Hemoglobin 29.4 25-34 pg Mean Corpuscular Hemoglobin Concent 30.4 32-36 g/dl RDW Standard Deviation 58.3 36.4-46.3 fL RDW Coefficient of Variation 16.7 11.5-14.5 % Platelet Count 105 130-400 K/uL Mean Platelet Volume 10.4 7.4-10.4 fL Activated Partial Thromboplast Time 39.1 21.0-31.0 SECONDS Partial Thromboplastin Ratio 1.5 Sodium Level 140 136-145 mmol/L Potassium Level 3.2 3.5-5.1 mmol/L Chloride Level 107 98-107 mmol/L Carbon Dioxide Level 27 21-32 mmol/L Anion Gap 6.0 3-11 mmol/L Blood Urea Nitrogen 11 7-18 mg/dl Creatinine 0.68 0.60-1.20 mg/dl Est Creatinine Clear Calc Drug Dose 41.1 ml/min Estimated GFR () 91.8 Estimated GFR (Non- 79.2 BUN/Creatinine Ratio 16.5 10-20 Random Glucose 95 70-99 mg/dl Calcium Level 7.4 8.5-10.1 mg/dl Phosphorus Level 2.1 2.5-4.9 mg/dl Magnesium Level 2.4 1.8-2.4 mg/dl Test 10/25/17 05:48 Range/Units Bedside Glucose 100 70-90 mg/dl Microbiology Results 10/24/17 Fungal Smear, Received Pending 10/24/17 Fungal Culture, Received Pending Assessment & Plan pt is stable, good urine output D/W ICU attending about treatment plan for PE , ID consult for possible sepsis continue treatment iv antibiotic, iv fluid peritoneal fluid culture repeat labs in am, will F/U 10/24/2017 I update about OR finding and the surgery pt had, pt understood, I answered all questions, continue treatment, repeat labs in am, will F/U 10/25/2017 low H/H 6.8, but pt's BP, HR are stable KUB, CXR-reviewed the reports continue treatment, december D/C NGT, Upper Gi study tomorrow will F/U pt is stable, good urine output D/W ICU attending about treatment plan for PE , ID consult for possible sepsis continue treatment iv antibiotic, iv fluid peritoneal fluid culture repeat labs in am, will F/U 10/24/2017 I update about OR finding and the surgery pt had, pt understood, I answered all questions, continue treatment, repeat labs in am, will F/U
[2017-10-25] MEDS: PIPERACILL/TAZOBAC IV 3.375 GM in DEXTROSE 5% 100ML 100 ML IV SCH ×2 (07:59→17:12)
[2017-10-25] MEDS: METOCLOPRAMIDE HCL INJ 5 MG/ML 2 ML VIAL IV. SCH ×3 (08:01→20:34)
[2017-10-25] MEDS ORDERED: FLUCONAZOLE 200MG / NSS IV SCH (09:00)
[2017-10-25] MEDS ORDERED: POTASSIUM PHOSPHATE INJ 12 MMOL in SODIUM CHLORIDE 0.9% 250ML 250 ML IV ONE (09:30)
[2017-10-25] MEDS: PANTOprazole INJ 40 MG in SYRINGE 0 ML IV SCH ×2 (11:35→20:34)
[2017-10-25] MEDS ORDERED: METOPROLOL TARTRATE 1 MG/ML VIAL IV. STA (13:10)
[2017-10-25] MEDS ORDERED: CASPOFUNGIN INJ 70 MG in SODIUM CHLORIDE 0.9% 250ML 250 ML IV STA (13:15)
[2017-10-25 13:28] LABS: PTT PATIENT 52.7 SECONDS (21.0-31.0)
[2017-10-25 21:11] LABS: HEMATOCRIT 24.6 % (37-47); HEMOGLOBIN 8.2 g/dL (12.0-16.0)
--- NOTE | 2017-10-25 23:47 | Critical Care Progress Note ---
Critical Care Progress Note Date of Service Oct 25, 2017. ICU Day ICU Day Number: [address] Palacios Subjective Pain improved, desires to get out of bed today Objective General Appearance: No acute distress, utilizing flutter valve when I entered the room Eyes: PERRLA, no discharge, EOMI, sclerae normal, scleral icterus Neck: normal range of motion, no tenderness, trachea midline, no stridor, supple, no thyromegaly, no lymphadenopathy, no meningismus Respiratory: breath sounds normal, clear to auscultation, clear to percussion, no respiratory distress Cardiovasular: regular rate/rhythm, normal S1S2, no M/G/R, no murmur Abdomen: Abdominal binder in place, I removed this to facilitate a abdominal ultrasound as well as physical examination, mild shadowing on bandages, no shadowing outside of previously marked edge, FAST scan negative Genitourinary - Female: other (Sotelo in place) Upper Extremities: normal ROM Lower Extremities: no deformity, normal ROM Neuro: alert, oriented x 3, normal motor exam Assessment & Plan Reason Critically Ill: 87-year-old female with known malignancy who has a perforated viscus, and acute PE PLAN: Neuro: Postoperative pain control * Morphine and Dilaudid per general surgery Resp: Bilateral pulmonary emboli * Low intensity heparin infusion * Discussed with Dr. Jean as well as Dr. Sandoval please refer to their documentation Pleural effusion, left side * Likely reactionary to recent surgery * Continue incentive spirometry CV: Hypertension * Propranolol 20 mg daily per prior records as outpatient Tachycardia with premature atrial complexes * Increase to 10 mg Lopressor IV every 6 hours Fluids/Renal: Decreased LR to 75 ML's per hour * Discontinue Sotelo ID: Patient last had chemotherapy on October 20, discussed with Dr. Jean patient likely reaching maximum point of bone marrow suppression * Perforated viscus * Vancomycin and Zosyn * Given recent chemotherapy added fungal coverage as well as fungal blood culture * Preliminary abdominal culture results revealed Alida albicans, change Diflucan to caspofungin GI/Nutrition: N.p.o. * NG tube out per general surgery * Can start sips today per general surgery Heme: Bilateral pulmonary emboli Anemia (likely multifactorial, iatrogenic secondary to phlebotomy and bone marrow suppression) * Transfuse 1 unit packed red blood cells * Recent chemotherapy, likely at [facility] for bone marrow suppression Endocrine: Accu-Cheks per ICU protocol Activity: Encourage out of bed to chair as well as early ambulation. I have personally spent 45 minutes of critical care time in the direct management of this patient. This is a life/limb threatening event. This includes time spent evaluating patient, direct bedside care, chart review, placing orders, interpretation of diagnostic studies, discussion with consultants, patient, and/or family members regarding treatment decisions, as well as other required patient management activities. This time is exclusive of all separately billable procedures, and teaching time and separate from and in addition to any other critical care service time, and this critical care service is related to her pulmonary emboli and anemia secondary to likely bone marrow suppression as well as phlebotomy Data Medications: Current Inpatient Medications Medications (Trade) Dose Ordered Sig/Madonna Route Start Time Stop Time Status Last Admin Dose Admin Ioversol (Optiray 320) 100 ml UD PRN IV 10/23/17 06:00 10/27/17 05:59 Lactated Ringer's 1,000 ml @ 75 mls/hr [id number] IV 10/23/17 10:57 11/22/17 10:56 10/25/17 21:36 75 MLS/HR Piperacillin Sod/ Tazobactam Sod 3.375 gm/Dextrose 115 ml @ 28.7 mls/hr Q8H IV 10/23/17 16:00 10/30/17 23:59 10/25/17 17:12 28.7 MLS/HR Ondansetron HCl (Zofran Inj) 4 mg Q4H PRN IV 10/23/17 11:00 11/22/17 10:59 Morphine Sulfate (MoRPHine SULFATE INJ) 2 mg Q3HWA PRN IV 10/23/17 11:00 11/06/17 10:59 10/25/17 15:43 2 MG Pantoprazole Sodium 40 mg/ Syringe 10 ml @ 5 mls/min BID@0900,2100 IV 10/23/17 21:00 11/22/17 20:59 10/25/17 20:34 5 MLS/MIN Heparin Sodium/ Dextrose 500 ml @ 17 mls/hr Q24H PRN IV 10/23/17 19:00 11/22/17 18:59 10/25/17 07:01 17 MLS/HR Menthol (Nice José) 1 josé PRN PRN JOSÉ 2/26/18 21:00 11/22/17 20:59 Hydromorphone HCl (Dilaudid Inj) 0.5 mg Q3H PRN IV 10/24/17 10:30 11/06/17 10:59 Miscellaneous Information (Consult) 1 ea UD PRN N/A 10/24/17 12:15 11/23/17 12:14 Metoclopramide HCl (Reglan Inj) 10 mg Q6H IV. 10/25/17 08:00 11/24/17 07:59 10/25/17 20:34 10 MG Metoprolol Tartrate (Lopressor Iv) 10 mg Q6 IV. 10/25/17 18:00 11/24/17 17:59 10/25/17 18:33 10 MG Caspofungin 50 mg/ Sodium Chloride 260 ml @ 260 mls/hr DAILY@1200 IV 10/26/17 12:00 11/05/17 11:59 I & O: 24-Hour Column 10/26/17 07:59 Intake Total 1557 ml Output Total 435 ml Balance 1122 ml Vital Signs: Date Time Temp Pulse Resp B/P (MAP) Pulse Ox O2 Delivery O2 Flow Rate FiO2 10/25/17 18:33 90 144/90 10/25/17 18:00 90 144/90 (108) 94 Nasal Cannula 2.0 10/25/17 17:00 96 151/80 (103) 96 Nasal Cannula 2.0 10/25/17 16:00 Nasal Cannula 2.0 10/25/17 16:00 36.7 96 145/67 (93) 94 Nasal Cannula 2.0 10/25/17 14:00 85 18 142/87 (105) 93 Nasal Cannula 2.0 10/25/17 13:35 84 132/79 10/25/17 12:54 99 185/67 10/25/17 12:00 89 18 169/67 (101) 93 Nasal Cannula 2.0 10/25/17 12:00 Nasal Cannula 2.0 10/25/17 11:25 18 10/25/17 11:00 93 175/70 (105) 93 Nasal Cannula 2.0 10/25/17 10:00 96 17 189/66 (107) 93 Nasal Cannula 2.0 10/25/17 09:30 92 192/67 (108) 94 2.0 10/25/17 09:00 88 188/70 (109) 96 2.0 10/25/17 08:45 36.8 93 24 126/70 94 2.0 10/25/17 08:30 87 170/61 (97) 94 2.0 10/25/17 08:11 18 10/25/17 08:11 36.6 82 82 170/67 95 2.0 10/25/17 08:00 Nasal Cannula 2.0 10/25/17 08:00 Nasal Cannula 10/25/17 08:00 Nasal Cannula 2.0 10/25/17 08:00 36.6 80 18 175/62 (99) 93 2.0 10/25/17 07:51 36.7 78 19 154/76 95 2.0 10/25/17 07:00 94 191/62 (105) 94 10/25/17 07:00 92 10/25/17 06:00 84 20 123/46 (71) 95 Nasal Cannula 2.0 10/25/17 04:00 Nasal Cannula 2.0 10/25/17 04:00 36.8 78 18 113/47 (69) 96 Nasal Cannula 2.0 10/25/17 02:00 81 18 158/54 (88) 97 Nasal Cannula 2.0 10/25/17 00:01 36.8 79 16 147/57 (87) 94 Nasal Cannula 2.0 10/24/17 23:59 Nasal Cannula 2.0 10/24/17 23:52 87 148/52 Laboratory Results: Last 24 Hours Test 10/25/17 00:40 10/25/17 05:47 10/25/17 05:48 10/25/17 12:38 Bedside Glucose 104 mg/dl 100 mg/dl White Blood Count 20.97 K/uL Red Blood Count 2.31 M/uL Hemoglobin 6.8 g/dL Hematocrit 22.4 % Mean Corpuscular Volume 97.0 fL Mean Corpuscular Hemoglobin 29.4 pg Mean Corpuscular Hemoglobin Concent 30.4 g/dl RDW Standard Deviation 58.3 fL RDW Coefficient of Variation 16.7 % Platelet Count 105 K/uL Mean Platelet Volume 10.4 fL Activated Partial Thromboplast Time 39.1 SECONDS 52.7 SECONDS Partial Thromboplastin Ratio 1.5 2.0 Sodium Level 140 mmol/L Potassium Level 3.2 mmol/L Chloride Level 107 mmol/L Carbon Dioxide Level 27 mmol/L Anion Gap 6.0 mmol/L Blood Urea Nitrogen 11 mg/dl Creatinine 0.68 mg/dl Est Creatinine Clear Calc Drug Dose 41.1 ml/min Estimated GFR () 91.8 Estimated GFR (Non- 79.2 BUN/Creatinine Ratio 16.5 Random Glucose 95 mg/dl Calcium Level 7.4 mg/dl Phosphorus Level 2.1 mg/dl Magnesium Level 2.4 mg/dl Test 10/25/17 14:14 10/25/17 18:23 10/25/17 20:59 Bedside Glucose 89 mg/dl 106 mg/dl Hemoglobin 8.2 g/dL Hematocrit 24.6 %
[2017-10-26] VITALS (13 sets, daily range): BP systolic 117–167; BP diastolic 64–121; PULSE 67–90; TEMP 36.4–37; O2SAT 94–99
[2017-10-26] MEDS: PIPERACILL/TAZOBAC IV 3.375 GM in DEXTROSE 5% 100ML 100 ML IV SCH ×4 (00:54→23:24)
[2017-10-26] MEDS: METOPROLOL TARTRATE 1 MG/ML VIAL IV. SCH ×4 (00:54→17:28)
[2017-10-26] MEDS: METOCLOPRAMIDE HCL INJ 5 MG/ML 2 ML VIAL IV. SCH ×4 (02:35→22:32)
[2017-10-26 06:06] LABS: HEMOGLOBIN 8.9 g/dL (12.0-16.0); MEAN CELL VOLUME 94.1 fL (80-100); RED CELL DISTRIBUTION WIDTH CV 17.7 % (11.5-14.5); RED CELL DISTRIBUTION WIDTH SD 60.4 fL (36.4-46.3); WHITE BLOOD COUNT 5.67 K/uL (4.8-10.8)
[2017-10-26 06:20] LABS: MEAN PLATELET VOLUME 10.8 fL (7.4-10.4); PLATELET COUNT 77 K/uL (130-400)
[2017-10-26 06:28] LABS: PTT PATIENT 35.2 SECONDS (21.0-31.0)
[2017-10-26 06:29] LABS: CALCIUM 7.6 mg/dl (8.5-10.1); CREATININE 0.68 mg/dl (0.60-1.20); PHOSPHORUS 2.2 mg/dl (2.5-4.9); POTASSIUM 3.2 mmol/L (3.5-5.1)
[2017-10-26] MEDS ORDERED: HEPARIN IV BOLUS 4,000 UNIT in SYRINGE 0 ML IV ONE ×2 (07:00→23:45)
[2017-10-26] MEDS ORDERED: POTASSIUM PHOS 3 MMOL/1 ML INFUSION IV STA (09:06)
[2017-10-26] MEDS ORDERED: POTASSIUM PHOSPHATE INJ 21 MMOL in SODIUM CHLORIDE 0.9% 500ML 500 ML IV ONE (09:30)
[2017-10-26] MEDS: PANTOprazole INJ 40 MG in SYRINGE 0 ML IV SCH ×2 (09:34→23:23)
[2017-10-26] MEDS: MoRPHine SULFATE 2 MG/ML CARP IV PRN (09:35)
--- NOTE | 2017-10-26 10:15 | Progress Note ---
Subjective Date of Service: Oct 26, 2017. Subjective Pt evaluation today including: conversation w/ patient, physical exam, chart review, lab review Patient is seen in follow-up examination. She is at but chair. She states her abdominal pain is a 10. She has been on Zosyn empirically. Her cultures from the are now growing Alida albicans. She was started IV caspofungin this morning. She is tolerating antibiotics well. She denies any nausea diarrhea. She has not yet eating. She states she still does not have an appetite. [place] [address].6. Her hemoglobin has also improved to 8.9 today. Denies any fevers or chills. She denies any chest pain cough shortness of breath. Her remaining review of systems are reviewed and are unremarkable. Problem List Medical Problems: (1) Bilateral pulmonary embolism Status: Acute (2) Perforated bowel Status: Acute (3) Perforated viscus Status: Acute Objective Vital Signs Date Time Temp Pulse Resp B/P (MAP) Pulse Ox O2 Delivery O2 Flow Rate FiO2 10/26/17 08:00 36.7 83 16 159/87 (111) 99 Nasal Cannula 3.0 10/26/17 07:11 92 10/26/17 06:00 90 17 153/121 (132) 98 Nasal Cannula 2.0 10/26/17 04:00 77 20 150/95 (113) 98 Nasal Cannula 2.0 10/26/17 04:00 Nasal Cannula 2.0 10/26/17 02:00 67 16 117/67 (84) 97 Nasal Cannula 2.0 10/26/17 00:54 76 145/72 10/26/17 00:01 36.9 75 18 145/72 (96) 96 Nasal Cannula 2.0 10/25/17 23:59 Nasal Cannula 2.0 10/25/17 22:00 90 18 142/76 (98) 93 Nasal Cannula 2.0 10/25/17 20:00 Nasal Cannula 2.0 10/25/17 20:00 36.8 73 18 115/59 (77) 98 Nasal Cannula 2.0 10/25/17 18:33 90 144/90 10/25/17 18:00 90 144/90 (108) 94 Nasal Cannula 2.0 10/25/17 17:00 96 151/80 (103) 96 Nasal Cannula 2.0 10/25/17 16:00 Nasal Cannula 2.0 10/25/17 16:00 36.7 96 145/67 (93) 94 Nasal Cannula 2.0 10/25/17 14:00 85 18 142/87 (105) 93 Nasal Cannula 2.0 10/25/17 13:35 84 132/79 10/25/17 12:54 99 185/67 10/25/17 12:00 89 18 169/67 (101) 93 Nasal Cannula 2.0 10/25/17 12:00 Nasal Cannula 2.0 10/25/17 11:25 18 10/25/17 11:00 93 175/70 (105) 93 Nasal Cannula 2.0 Physical Exam General Appearance: WD/WN, no apparent distress Eyes: normal inspection, EOMI Neck: supple Respiratory/Chest: lungs clear, normal breath sounds, no respiratory distress Cardiovascular: regular rate, rhythm Abdomen: soft Extremities: non-tender, no pedal edema Neurologic/Psychiatric: alert, oriented x 3 Skin: normal color Laboratory Results Item Value Date Time Gram Stain - Final Resulted 10/23/17 1746 Peritoneal Fluid Last 24 Hours Test 10/25/17 12:38 10/25/17 14:14 10/25/17 18:23 10/25/17 20:59 Activated Partial Thromboplast Time 52.7 SECONDS Partial Thromboplastin Ratio 2.0 Bedside Glucose 89 mg/dl 106 mg/dl Hemoglobin 8.2 g/dL Hematocrit 24.6 % Test 10/26/17 05:25 White Blood Count 5.67 K/uL Red Blood Count 2.87 M/uL Hemoglobin 8.9 g/dL Hematocrit 27.0 % Mean Corpuscular Volume 94.1 fL Mean Corpuscular Hemoglobin 31.0 pg Mean Corpuscular Hemoglobin Concent 33.0 g/dl RDW Standard Deviation 60.4 fL RDW Coefficient of Variation 17.7 % Platelet Count 77 K/uL Mean Platelet Volume 10.8 fL Activated Partial Thromboplast Time 35.2 SECONDS Partial Thromboplastin Ratio 1.4 Sodium Level 139 mmol/L Potassium Level 3.2 mmol/L Chloride Level 105 mmol/L Carbon Dioxide Level 30 mmol/L Anion Gap 4.0 mmol/L Blood Urea Nitrogen 10 mg/dl Creatinine 0.68 mg/dl Est Creatinine Clear Calc Drug Dose 41.1 ml/min Estimated GFR () 91.8 Estimated GFR (Non- 79.2 BUN/Creatinine Ratio 14.5 Random Glucose 101 mg/dl Calcium Level 7.6 mg/dl Phosphorus Level 2.2 mg/dl Magnesium Level 2.3 mg/dl Assessment and Plan (1) Peritonitis (acute) generalized Assessment & Plan: The patient will continue on her current antibiotics. They can remain IV until she is tolerating a full diet. When she is able to take p.o. she can be transitioned to oral Augmentin as well as oral fluconazole to complete a 14 day course. (2) Perforated bowel
--- NOTE | 2017-10-26 10:24 | Surgery Progress Note ---
Surgery Progress Note Date of Service Oct 26, 2017. Subjective Post OP Day: 3 (s/p ex lap, repair of duodenal ulcer perforation with grahm patch) + feeling well, + complaints (abdominal pain), + bowel movement, + flatus, + pain controlled, No nausea, No vomiting Objective Vital Signs: Date Time Temp Pulse Resp B/P (MAP) Pulse Ox O2 Delivery O2 Flow Rate FiO2 10/26/17 07:11 92 10/26/17 06:00 90 17 153/121 (132) 98 Nasal Cannula 2.0 10/26/17 04:00 77 20 150/95 (113) 98 Nasal Cannula 2.0 10/26/17 04:00 Nasal Cannula 2.0 10/26/17 02:00 67 16 117/67 (84) 97 Nasal Cannula 2.0 10/26/17 00:54 76 145/72 10/26/17 00:01 36.9 75 18 145/72 (96) 96 Nasal Cannula 2.0 10/25/17 23:59 Nasal Cannula 2.0 10/25/17 22:00 90 18 142/76 (98) 93 Nasal Cannula 2.0 10/25/17 20:00 Nasal Cannula 2.0 10/25/17 20:00 36.8 73 18 115/59 (77) 98 Nasal Cannula 2.0 10/25/17 18:33 90 144/90 10/25/17 18:00 90 144/90 (108) 94 Nasal Cannula 2.0 10/25/17 17:00 96 151/80 (103) 96 Nasal Cannula 2.0 10/25/17 16:00 Nasal Cannula 2.0 10/25/17 16:00 36.7 96 145/67 (93) 94 Nasal Cannula 2.0 10/25/17 14:00 85 18 142/87 (105) 93 Nasal Cannula 2.0 10/25/17 13:35 84 132/79 10/25/17 12:54 99 185/67 10/25/17 12:00 89 18 169/67 (101) 93 Nasal Cannula 2.0 10/25/17 12:00 Nasal Cannula 2.0 10/25/17 11:25 18 10/25/17 11:00 93 175/70 (105) 93 Nasal Cannula 2.0 General Appearance: WD/WN, no apparent distress Head: normocephalic, atraumatic Neck: trachea midline Respiratory/Chest: no respiratory distress, no accessory muscle use, + pertinent finding (nasal cannula present, 97% on 2 liters) Abdomen: + pertinent finding (patient sitting in chair with binder on, will reexamine later today after contrast study) Laboratory Results: Results Past 24 Hours Test 10/25/17 12:38 10/25/17 14:14 10/25/17 18:23 10/25/17 20:59 Range/Units Activated Partial Thromboplast Time 52.7 21.0-31.0 SECONDS Partial Thromboplastin Ratio 2.0 Bedside Glucose 89 106 70-90 mg/dl Hemoglobin 8.2 12.0-16.0 g/dL Hematocrit 24.6 37-47 % Test 10/26/17 05:25 Range/Units White Blood Count 5.67 4.8-10.8 K/uL Red Blood Count 2.87 4.2-5.4 M/uL Hemoglobin 8.9 12.0-16.0 g/dL Hematocrit 27.0 37-47 % Mean Corpuscular Volume 94.1 80-100 fL Mean Corpuscular Hemoglobin 31.0 25-34 pg Mean Corpuscular Hemoglobin Concent 33.0 32-36 g/dl RDW Standard Deviation 60.4 36.4-46.3 fL RDW Coefficient of Variation 17.7 11.5-14.5 % Platelet Count 77 130-400 K/uL Mean Platelet Volume 10.8 7.4-10.4 fL Activated Partial Thromboplast Time 35.2 21.0-31.0 SECONDS Partial Thromboplastin Ratio 1.4 Sodium Level 139 136-145 mmol/L Potassium Level 3.2 3.5-5.1 mmol/L Chloride Level 105 98-107 mmol/L Carbon Dioxide Level 30 21-32 mmol/L Anion Gap 4.0 3-11 mmol/L Blood Urea Nitrogen 10 7-18 mg/dl Creatinine 0.68 0.60-1.20 mg/dl Est Creatinine Clear Calc Drug Dose 41.1 ml/min Estimated GFR () 91.8 Estimated GFR (Non- 79.2 BUN/Creatinine Ratio 14.5 10-20 Random Glucose 101 70-99 mg/dl Calcium Level 7.6 8.5-10.1 mg/dl Phosphorus Level 2.2 2.5-4.9 mg/dl Magnesium Level 2.3 1.8-2.4 mg/dl Assessment & Plan POD # 3 s/p exploratory laparotomy, repair of duodenal ulcer perforation with Abad patch - afebrile, tachycardia at times, improving - leukocytosis resolved - moderate abdominal pain, controlled - Thirsty - + bowel function - abdominal culture positive for Alida Plan: Continue current pain management Will obtain contrast study with KUB to rule out any leak, if no leak will begin clear liquids Continue IV fluids Continue IV Zosyn and IV Caspofungin Keep O2 sats > 92% OOB to chair PT/OT Continue abdominal binder Repeat am labs Transfer out of ICU today Continue IV Heparin Replete Potassium Dr. Payne has seen and examined patient, agrees with above
--- NOTE | 2017-10-26 12:13 | DIAGNOSTIC IMAGING REPORT ---
KUB CLINICAL HISTORY: / Perforation COMPARISON STUDY: 10/25/2017 FINDINGS: Abdominal images performed from the administration of Gastroview. Configuration of the stomach appears unremarkable. There is no evidence for significant extravasation. There is a small amount of contrast within the proximal small bowel left lateral to the gastric outline. IMPRESSION: No evidence for extravasation within limitations of this single image The above report was generated using voice recognition software. It may contain grammatical, syntax or spelling errors. Electronically signed by: Sushant Sutton M.D. 10/26/2017 12:11 PM Dictated Date/Time: 10/26/2017 12:10 PM
--- NOTE | 2017-10-26 12:13 | Medical Consult ---
History General Date of Service: Oct 26, 2017. Stated Complaint: Duodenal Perforation HPI The patient is a 87 year old female who presents to [facility] with complaints of Duodenal Perforation. The patient's primary care provider is Delio Carter M.D.. This patient is having a medical consult, she is consulted by the ICU physician at this point in time who is performing all the medical management. Patient presented on 23 October with acute abdominal pain, found to have a perforated duodenal ulcer which required surgical intervention. Concurrently she is also discovered to have pulmonary embolism was started on heparin therapy. The patient has recently been undergoing chemotherapy treatment for lymphoma or with her last chemotherapy being October 20. Postoperatively the patient has not yet begun feeding she is on antibiotics of vancomycin and Zosyn and antifungals of capsule function. On the overnight of October 23 first patient developed A. fib RVR. She typically takes propranolol prior to this illness and has been getting intravenous metoprolol however it is dose was increased with good rate control the patient also has been on chronic prednisone therapy likely as part of her chemotherapeutic regimen. Patient is awake alert in the ICU she is having abdominal pain surgery is ordered a contrast x-ray of her abdomen and there is discussion by Dr. Andre regarding her falling platelet count either being consumption post chemo or possibly heparin-induced although the timing is not right for that as she has been on heparin now for 4 days or so hit panel will be sent Historian: patient Review of Systems Constitutional: reports: weakness, denies: chills Eyes: reports: no symptoms, denies: eye pain Cardiovascular: reports: palpitations, denies: chest pressure Respiratory: denies: cough, wheezing Gastrointestinal: reports: abdominal pain, nausea Musculoskeletal: reports: arthralgias (Baseline from previous back kyphoplasty' s), denies: neck pain Integumentary: denies: rash, redness Neurologic: reports: general weakness, denies: headache Psychiatric: reports: anxiety, denies: depression Hematologic / Lymphatic: denies: easy bleeding, easy bruising Past Medical History Past Medical History: cancer (Lymphoma), hypertension, hypothyroidism, other ( Chronic prednisone use cholelithiasis) Past Surgical History: other (Kyphoplasty a port placement) Family History Patient reports no known family medical history. Social History Hx Tobacco Use In Past Year?: No Smoking Status: Former Smoker Immunizations History of Influenza Vaccine: No History of Tetanus Vaccine?: Yes History of Pneumococcal: Yes History of Hepatitis B Vaccine: No History of MDRO History of MDRO: No Allergies Coded Allergies: No Known Allergies (Verified , 10/23/17) Current Medications Reported Home Medications Medications Dose Route/Sig Max Daily Dose Days Date Category Dose Instructions Kp Ferrous Sulfate (Ferrous Sulfate) 325 Mg Tab 325 Mg PO DAILY AT 1200 30 10/23/17 Reported Vitamin D3 (Cholecalciferol) 1,000 Unit Cap 1,000 Units PO DAILY AT 1200 10/23/17 Reported Vitamin B Complex (B-Complex Vitamins) 1 Tab Tab 1 Tab PO DAILY AT 1200 10/23/17 Reported Prednisone 20 Mg Tab 20 Mg PO DIRECTED 10/23/17 Reported PT TAKES 5 TABS-3 DAYS PRIOR TO AND 2 DAYS AFTER CHEMO. B-12 (Cyanocobalamin) 500 Mcg Tab 1,000 Mcg PO QAM 10/23/17 Reported Zinc (Zinc Gluconate) 50 Mg Tab 1 Tab PO QD@1200 08/31/17 Reported Biotin 300 Mcg Tab 1 Tab PO QD@1200 08/31/17 Reported Glucosamine Chondroitin (Nsblxhbyeql-Syrolxafati-Qik C-) 1 Tab Tab 2 Tab PO QD@1200 07/19/17 Reported Levothyroxine Sodium 75 Mcg Tab 1 Tab PO QAM 07/19/17 Reported Mobic (Meloxicam) 15 Mg Tab 15 Mg PO QAM 07/19/17 Reported Inderal (Propranolol HCl) 20 Mg Tab 20 Mg PO QAM 06/08/15 Reported Centrum Silver Adult 50+ (Multiple Vitamins W/ Minerals) 1 Tab Tab 1 Tab PO WITH LUNCH 06/08/15 Reported Stool Softener (Sennosides-Docusate Sodium) 1 Tab Tab 1 Tab DAILY PRN 08/23/12 Reported Ativan (Lorazepam) 0.5 Mg Tab 0.25-0.5 Mg PO TID PRN 08/23/12 Reported Hctz (Hydrochlorothiazide) 25 Mg Tab 25 Mg PO WITH LUNCH 08/23/12 Reported Fosamax (Alendronate Sodium) 70 Mg Tab 70 Mg PO WK 08/23/12 Reported Caltrate 600 Plus (Calcium Carbonate-Vitamin D W/) 1 Tab Tab 1 Tab PO QD@1200 08/23/12 Reported Physical Physical Exam Vital Signs: Date Time Temp Pulse Resp B/P (MAP) Pulse Ox O2 Delivery O2 Flow Rate FiO2 10/26/17 08:00 Nasal Cannula 3.0 10/26/17 08:00 36.7 83 16 159/87 (111) 99 Nasal Cannula 3.0 10/26/17 07:11 92 10/26/17 06:00 90 17 153/121 (132) 98 Nasal Cannula 2.0 10/26/17 04:00 77 20 150/95 (113) 98 Nasal Cannula 2.0 10/26/17 04:00 Nasal Cannula 2.0 10/26/17 02:00 67 16 117/67 (84) 97 Nasal Cannula 2.0 10/26/17 00:54 76 145/72 10/26/17 00:01 36.9 75 18 145/72 (96) 96 Nasal Cannula 2.0 10/25/17 23:59 Nasal Cannula 2.0 10/25/17 22:00 90 18 142/76 (98) 93 Nasal Cannula 2.0 10/25/17 20:00 Nasal Cannula 2.0 10/25/17 20:00 36.8 73 18 115/59 (77) 98 Nasal Cannula 2.0 10/25/17 18:33 90 144/90 10/25/17 18:00 90 144/90 (108) 94 Nasal Cannula 2.0 10/25/17 17:00 96 151/80 (103) 96 Nasal Cannula 2.0 10/25/17 16:00 Nasal Cannula 2.0 10/25/17 16:00 36.7 96 145/67 (93) 94 Nasal Cannula 2.0 10/25/17 14:00 85 18 142/87 (105) 93 Nasal Cannula 2.0 10/25/17 13:35 84 132/79 10/25/17 12:54 99 185/67 General Appearance: uncomfortable, mild distress, thin Head: NORMOCEPHALIC, ATRAUMATIC Neck: NO TENDERNESS, SUPPLE Respiratory: NO RESPIRATORY DISTRESS Cardiovasular: REGULAR RATE/RHYTHM, NO M/G/R Abdomen: NO REBOUND, hypoactive bowel sounds, other (tender to exam) Back: NORMAL INSPECTION, NO MIDLINE TENDERNESS Upper Extremities: NO EDEMA, NORMAL ROM Lower Extremities: NO EDEMA, NORMAL ROM Neuro: ALERT, ORIENTED x 3 Psychiatric: NORMAL AFFECT, NO SUICIDAL IDEATION Diagnostics Labs Results Past 24 Hours Test 10/25/17 12:38 10/25/17 14:14 10/25/17 18:23 10/25/17 20:59 Range/Units Activated Partial Thromboplast Time 52.7 21.0-31.0 SECONDS Partial Thromboplastin Ratio 2.0 Bedside Glucose 89 106 70-90 mg/dl Hemoglobin 8.2 12.0-16.0 g/dL Hematocrit 24.6 37-47 % Test 10/26/17 05:25 Range/Units White Blood Count 5.67 4.8-10.8 K/uL Red Blood Count 2.87 4.2-5.4 M/uL Hemoglobin 8.9 12.0-16.0 g/dL Hematocrit 27.0 37-47 % Mean Corpuscular Volume 94.1 80-100 fL Mean Corpuscular Hemoglobin 31.0 25-34 pg Mean Corpuscular Hemoglobin Concent 33.0 32-36 g/dl RDW Standard Deviation 60.4 36.4-46.3 fL RDW Coefficient of Variation 17.7 11.5-14.5 % Platelet Count 77 130-400 K/uL Mean Platelet Volume 10.8 7.4-10.4 fL Activated Partial Thromboplast Time 35.2 21.0-31.0 SECONDS Partial Thromboplastin Ratio 1.4 Sodium Level 139 136-145 mmol/L Potassium Level 3.2 3.5-5.1 mmol/L Chloride Level 105 98-107 mmol/L Carbon Dioxide Level 30 21-32 mmol/L Anion Gap 4.0 3-11 mmol/L Blood Urea Nitrogen 10 7-18 mg/dl Creatinine 0.68 0.60-1.20 mg/dl Est Creatinine Clear Calc Drug Dose 41.1 ml/min Estimated GFR () 91.8 Estimated GFR (Non- 79.2 BUN/Creatinine Ratio 14.5 10-20 Random Glucose 101 70-99 mg/dl Calcium Level 7.6 8.5-10.1 mg/dl Phosphorus Level 2.2 2.5-4.9 mg/dl Magnesium Level 2.3 1.8-2.4 mg/dl Impression Assessment and Plan 87-year-old female currently being treated for lymphoma with chemotherapy presents with acute abdominal pain found to have a perforated viscus from a duodenal ulcer also at the time found to have a pulmonary embolism subsequently throughout her hospital stay she is not yet regained enteral nutrition and she is developed A. fib with rapid ventricular response in the overnight hours of she is having to put acute postoperative anemia and possibly anemia worsened by chemotherapy and received 1 unit packed red blood transfusion, there is some declining platelet counts and concern for possibly heparin-induced from cytopenia Perforated viscous, duodenal ulcer seen a surgery Dr. Payne is managing her enteral nutrition continuing on intravenous pantoprazole following blood counts and transfusing as needed. Perforated viscus concern for infection patient is on vancomycin and Zosyn and caspofungin with infectious disease oversight A. fib RVR patient's had her metoprolol increased to 10 every 6 she is in nsr at this time she remains anticoagulated for PE PE likely related to malignancy concern with anemia continuing low dose heparin there is been discussion of an IVC filter her oncologist prefers to try to avoid this Hypothyroidism we will discuss continuing her Synthroid intravenously as her recent bout of tachycardia a few days without her Synthroid will not be that detrimental Hypokalemia replete based upon ICU electrolyte protocol The patient does list prednisone a part of her medical regimen if she is exhibiting signs of adrenal insufficiency from suppression from chronic prednisone use consideration for hydrocortisone would be undertaken
[2017-10-26] MEDS: CASPOFUNGIN INJ 50 MG in SODIUM CHLORIDE 0.9% 250ML 250 ML IV SCH (12:41)
[2017-10-26 13:22] LABS: PTT PATIENT 41.7 SECONDS (21.0-31.0)
[2017-10-26] MEDS ORDERED: HEPARIN IV BOLUS 2,000 UNIT in SYRINGE 0 ML IV ONE (14:45)
[2017-10-26] MEDS: LACTATED RINGER'S 1000ML 1,000 ML IV SCH (16:08)
[2017-10-26] MEDS: HEPARIN 25,000 UNIT/500ML D5W 500 ML IV PRN (18:05)
--- NOTE | 2017-10-26 19:19 | Critical Care Progress Note ---
Critical Care Progress Note Date of Service Oct 26, 2017. ICU Day ICU Day Number: [address] Palacios Subjective Sitting upright in chair, pleasant, feels greatly improved compared to yesterday Objective General Appearance: No acute distress Eyes: PERRLA, no discharge, EOMI, sclerae normal, scleral icterus Neck: normal range of motion, no tenderness, trachea midline, no stridor, supple, no thyromegaly, no lymphadenopathy, no meningismus Respiratory: breath sounds normal, clear to auscultation, clear to percussion, no respiratory distress Cardiovasular: regular rate/rhythm, normal S1S2, no M/G/R, no murmur Abdomen: Abdominal binder in place Upper Extremities: normal ROM Lower Extremities: no deformity, normal ROM Neuro: alert, oriented x 3, normal motor exam Assessment & Plan Reason Critically Ill: 87-year-old female with known malignancy who has a perforated viscus, and acute PE PLAN: Neuro: Postoperative pain control * Morphine and Dilaudid per general surgery Resp: Bilateral pulmonary emboli * Low intensity heparin infusion * Discussed with Dr. Jean as well as Dr. Sandoval please refer to their documentation Pleural effusion, left side * Likely reactionary to recent surgery * Continue incentive spirometry CV: Hypertension * Propranolol 20 mg daily per prior records as outpatient Tachycardia with premature atrial complexes * Increase to 10 mg Lopressor IV every 6 hours until able to convert to oral medication Fluids/Renal: Decreased LR to 50 ML's per hour ID: Patient last had chemotherapy on October 20, discussed with Dr. Jean patient likely reaching maximum point of bone marrow suppression * Perforated viscus * Reviewed infectious disease recommendations GI/Nutrition: N.p.o. * NG tube out per general surgery * Gastrografin study results reviewed no report of extravasation Heme: Bilateral pulmonary emboli Anemia (likely multifactorial, iatrogenic secondary to phlebotomy and bone marrow suppression) * Recent chemotherapy, likely at [facility] for bone marrow suppression Thrombocytopenia * Hit score 2: Low probability * Timing of thrombocytopenia not consistent with hit * No new thrombosis or skin necrosis/skin lesion or progressive thrombosis * Most likely cause for thrombocytopenia is recent chemotherapy * Continue current heparin infusion monitor for signs of occult bleeding or progressive thrombosis Endocrine: Accu-Cheks per ICU protocol Activity: Encourage out of bed to chair as well as early ambulation. Patient is stable for downgrade out of ICU, medically complex Data Medications: Current Inpatient Medications Medications (Trade) Dose Ordered Sig/Madonna Route Start Time Stop Time Status Last Admin Dose Admin Ioversol (Optiray 320) 100 ml UD PRN IV 10/23/17 06:00 10/27/17 05:59 Lactated Ringer's 1,000 ml @ 50 mls/hr Q20H IV 10/23/17 10:57 11/22/17 10:56 10/25/17 21:36 75 MLS/HR Piperacillin Sod/ Tazobactam Sod 3.375 gm/Dextrose 115 ml @ 28.7 mls/hr Q8H IV 10/23/17 16:00 10/30/17 23:59 10/26/17 16:07 28.7 MLS/HR Ondansetron HCl (Zofran Inj) 4 mg Q4H PRN IV 10/23/17 11:00 11/22/17 10:59 Morphine Sulfate (MoRPHine SULFATE INJ) 2 mg Q3HWA PRN IV 10/23/17 11:00 11/06/17 10:59 10/26/17 09:35 2 MG Pantoprazole Sodium 40 mg/ Syringe 10 ml @ 5 mls/min BID@0900,2100 IV 10/23/17 21:00 11/22/17 20:59 10/26/17 09:34 5 MLS/MIN Heparin Sodium/ Dextrose 500 ml @ 20 mls/hr Q24H PRN IV 10/23/17 19:00 11/22/17 18:59 10/26/17 18:05 20 MLS/HR Menthol (Nice Jaydon) 1 jaydon PRN PRN JAYDON 10/23/17 21:00 11/22/17 20:59 Hydromorphone HCl (Dilaudid Inj) 0.5 mg Q3H PRN IV 10/24/17 10:30 11/06/17 10:59 Miscellaneous Information (Consult) 1 ea UD PRN N/A 10/24/17 12:15 11/23/17 12:14 Metoclopramide HCl (Reglan Inj) 10 mg Q6H IV. 10/25/17 08:00 11/24/17 07:59 10/26/17 14:07 10 MG Metoprolol Tartrate (Lopressor Iv) 10 mg Q6 IV. 10/25/17 18:00 11/24/17 17:59 10/26/17 17:28 10 MG Caspofungin 50 mg/ Sodium Chloride 260 ml @ 260 mls/hr DAILY@1200 IV 10/26/17 12:00 11/05/17 11:59 10/26/17 12:41 260 MLS/HR I & O: 24-Hour Column 10/27/17 08:00 Intake Total 1855 ml Output Total 690 ml Balance 1165 ml Vital Signs: Date Time Temp Pulse Resp B/P (MAP) Pulse Ox O2 Delivery O2 Flow Rate FiO2 10/26/17 18:16 36.4 77 18 132/69 (90) 96 Nasal Cannula 2.0 10/26/17 17:28 99 160/80 10/26/17 16:00 99 Nasal Cannula 2.0 10/26/17 15:53 37.0 88 18 167/80 (109) 96 Nasal Cannula 2.0 10/26/17 12:43 82 161/79 10/26/17 12:00 36.7 90 161/79 (106) 95 Nasal Cannula 2.0 10/26/17 12:00 Nasal Cannula 2.0 10/26/17 10:00 84 140/75 (96) 99 Nasal Cannula 3.0 10/26/17 08:00 Nasal Cannula 3.0 10/26/17 08:00 36.7 83 16 159/87 (111) 99 Nasal Cannula 3.0 10/26/17 08:00 Nasal Cannula 10/26/17 07:11 92 10/26/17 06:00 90 17 153/121 (132) 98 Nasal Cannula 2.0 10/26/17 04:00 77 20 150/95 (113) 98 Nasal Cannula 2.0 10/26/17 04:00 Nasal Cannula 2.0 10/26/17 02:00 67 16 117/67 (84) 97 Nasal Cannula 2.0 10/26/17 00:54 76 145/72 10/26/17 00:01 36.9 75 18 145/72 (96) 96 Nasal Cannula 2.0 10/25/17 23:59 Nasal Cannula 2.0 10/25/17 22:00 90 18 142/76 (98) 93 Nasal Cannula 2.0 10/25/17 20:00 Nasal Cannula 2.0 10/25/17 20:00 36.8 73 18 115/59 (77) 98 Nasal Cannula 2.0 Laboratory Results: Last 24 Hours Test 10/25/17 20:59 10/26/17 05:25 10/26/17 13:00 Hemoglobin 8.2 g/dL 8.9 g/dL Hematocrit 24.6 % 27.0 % White Blood Count 5.67 K/uL Red Blood Count 2.87 M/uL Mean Corpuscular Volume 94.1 fL Mean Corpuscular Hemoglobin 31.0 pg Mean Corpuscular Hemoglobin Concent 33.0 g/dl RDW Standard Deviation 60.4 fL RDW Coefficient of Variation 17.7 % Platelet Count 77 K/uL Mean Platelet Volume 10.8 fL Activated Partial Thromboplast Time 35.2 SECONDS 41.7 SECONDS Partial Thromboplastin Ratio 1.4 1.6 Sodium Level 139 mmol/L Potassium Level 3.2 mmol/L Chloride Level 105 mmol/L Carbon Dioxide Level 30 mmol/L Anion Gap 4.0 mmol/L Blood Urea Nitrogen 10 mg/dl Creatinine 0.68 mg/dl Est Creatinine Clear Calc Drug Dose 41.1 ml/min Estimated GFR () 91.8 Estimated GFR (Non- 79.2 BUN/Creatinine Ratio 14.5 Random Glucose 101 mg/dl Calcium Level 7.6 mg/dl Phosphorus Level 2.2 mg/dl Magnesium Level 2.3 mg/dl
[2017-10-26 23:00] LABS: PTT PATIENT 33.9 SECONDS (21.0-31.0)
[2017-10-27] MEDS: METOPROLOL TARTRATE 1 MG/ML VIAL IV. SCH ×3 (00:56→14:12)
[2017-10-27] MEDS: HEPARIN 25,000 UNIT/500ML D5W 500 ML IV PRN ×5 (01:20→18:54)
[2017-10-27] MEDS: MoRPHine SULFATE 2 MG/ML CARP IV PRN ×2 (03:26→08:02)
[2017-10-27] MEDS: METOCLOPRAMIDE HCL INJ 5 MG/ML 2 ML VIAL IV. SCH (05:28)
--- NOTE | 2017-10-27 06:40 | Surgery Progress Note ---
Surgery Progress Note Date of Service Oct 27, 2017. Subjective Post OP Day: 3 + feeling well pt is doing better, passed BM, no nausea, no vomiting. she tolerated clear, Objective Vital Signs: Date Time Temp Pulse Resp B/P (MAP) Pulse Ox O2 Delivery O2 Flow Rate FiO2 10/27/17 05:32 80 138/72 10/27/17 00:56 82 157/59 10/27/17 00:45 Nasal Cannula 10/26/17 22:46 36.7 83 17 128/64 (85) 94 Nasal Cannula 2.0 10/26/17 18:30 96 Nasal Cannula 2.0 10/26/17 18:16 36.4 77 18 132/69 (90) 96 Nasal Cannula 2.0 10/26/17 17:28 99 160/80 10/26/17 16:00 99 Nasal Cannula 2.0 10/26/17 15:53 37.0 88 18 167/80 (109) 96 Nasal Cannula 2.0 10/26/17 12:43 82 161/79 10/26/17 12:00 36.7 90 161/79 (106) 95 Nasal Cannula 2.0 10/26/17 12:00 Nasal Cannula 2.0 10/26/17 10:00 84 140/75 (96) 99 Nasal Cannula 3.0 10/26/17 08:00 Nasal Cannula 3.0 10/26/17 08:00 36.7 83 16 159/87 (111) 99 Nasal Cannula 3.0 10/26/17 08:00 Nasal Cannula 10/26/17 07:11 92 General Appearance: WD/WN, no apparent distress Head: normocephalic Neck: supple, no JVD Respiratory/Chest: chest non-tender, lungs clear Cardiovascular: regular rate, rhythm, no edema, no JVD, no murmur Abdomen: normal bowel sounds, non tender, non distended, soft Incision(s): clean, dry, intact Extremities: normal range of motion, non-tender, normal inspection Laboratory Results: Results Past 24 Hours Test 10/26/17 13:00 10/26/17 22:36 10/27/17 04:44 Range/Units Activated Partial Thromboplast Time 41.7 33.9 21.0-31.0 SECONDS Partial Thromboplastin Ratio 1.6 1.3 Assessment & Plan pt is stable, good urine output D/W ICU attending about treatment plan for PE , ID consult for possible sepsis continue treatment iv antibiotic, iv fluid peritoneal fluid culture repeat labs in am, will F/U 10/24/2017 I update about OR finding and the surgery pt had, pt understood, I answered all questions, continue treatment, repeat labs in am, will F/U 10/25/2017 low H/H 6.8, but pt's BP, HR are stable KUB, CXR-reviewed the reports continue treatment, december D/C NGT, Upper Gi study tomorrow will F/U 10/27/2017 doing fine, Full liquid diet will F/U pt is stable, good urine output D/W ICU attending about treatment plan for PE , ID consult for possible sepsis continue treatment iv antibiotic, iv fluid peritoneal fluid culture repeat labs in am, will F/U 10/24/2017 I update about OR finding and the surgery pt had, pt understood, I answered all questions, continue treatment, repeat labs in am, will F/U 10/25/2017 low H/H 6.8, but pt's BP, HR are stable KUB, CXR-reviewed the reports continue treatment, december D/C NGT, Upper Gi study tomorrow will F/U
[2017-10-27 07:54] LABS: HEMATOCRIT 24.2 % (37-47); HEMOGLOBIN 7.8 g/dL (12.0-16.0); MEAN CELL VOLUME 94.2 fL (80-100); MEAN CORPUSCULAR HEMOGLOBIN 30.4 pg (25-34); MEAN CORPUSCULAR HGB CONC 32.2 g/dl (32-36); RED CELL DISTRIBUTION WIDTH CV 16.8 % (11.5-14.5); RED CELL DISTRIBUTION WIDTH SD 58.2 fL (36.4-46.3); WHITE BLOOD COUNT 1.16 K/uL (4.8-10.8)
[2017-10-27 08:00] VITALS: BP 130/68; PULSE 76; TEMP 36.8; O2SAT 96
[2017-10-27 08:14] LABS: PTT PATIENT 53.4 SECONDS (21.0-31.0)
[2017-10-27 08:22] LABS: MEAN PLATELET VOLUME 10.9 fL (7.4-10.4); PLATELET COUNT 62 K/uL (130-400)
[2017-10-27 08:25] LABS: CALCIUM 7.8 mg/dl (8.5-10.1); CREATININE 0.63 mg/dl (0.60-1.20); POTASSIUM 2.8 mmol/L (3.5-5.1)
[2017-10-27 08:57] VITALS: O2SAT 96
[2017-10-27] MEDS ORDERED: POTASSIUM CHLORIDE 10 MEQ TABCR PO ONE ×2 (09:45→17:30)
[2017-10-27] MEDS: PIPERACILL/TAZOBAC IV 3.375 GM in DEXTROSE 5% 100ML 100 ML IV SCH ×2 (12:09→18:15)
[2017-10-27] MEDS: POTASSIUM CHLR 10 MEQ / WTR 10 MEQ in PREMIXED WATER 100 ML IV SCH ×2 (12:11→13:56)
[2017-10-27] MEDS: LACTATED RINGER'S 1000ML 1,000 ML IV SCH (13:56)
[2017-10-27] MEDS: PANTOprazole INJ 40 MG in SYRINGE 0 ML IV SCH (13:57)
[2017-10-27 14:23] VITALS: BP 132/60; PULSE 90
[2017-10-27 15:00] VITALS: BP 145/72; PULSE 80; TEMP 36.5; O2SAT 98
--- NOTE | 2017-10-27 15:58 | Discharge Instructions ---
Discharge Instructions Date of Service Oct 27, 2017. Admission Reason for Admission: Duodenal Perforation Discharge Discharge Diagnosis / Problem: same Discharge Goals Goal(s): Decrease discomfort, Improve function Activity Recommendations Activity Limitations: per Instructions/Follow-up section No heavy lifting over 10 pounds for 6 weeks No strenuous activity until cleared by surgeon No submerging incisions underwater for 2 weeks or until healed (no swimming, bathing, or hot tubs) No driving while taking narcotic pain medication or until you are pain free . Instructions / Follow-Up Instructions / Follow-Up You may shower. Cover midline incision with dressings daily. Surgical moe will be removed in office Walking and light activity is encouraged You will be given narcotic pain medication to take as needed for moderate to severe pain. This medication may make you drowsy and can also cause constipation. To combat constipation you may take OTC stool softener such as Colace, drink prune juice, drink plenty of water, and daily walking. You will need to take Daily Protonix for the next month (antacid medication) You will also need to avoid NSAIDs(Ibuprofen, Aleve, aspirin) Avoid spicy foods, alcohol, acid foods Follow-up in surgical office in 1 week, please call office at [phone] to make an appointment Current Hospital Diet Patient's current hospital diet: Full Liquid Diet Discharge Diet Recommended Diet: Regular Diet Procedures Procedures Performed: Exploratory Laparotomy, Closure of Duodenal Ulcer with Abad Patch, Repair Ventral Hernia. Pending Studies Studies pending at discharge: no Medical Emergencies . Who to Call and When: Medical Emergencies: If at any time you feel your situation is an emergency, please call 911 immediately. . Non-Emergent Contact Non-Emergency issues call your: Primary Care Provider, Surgeon Call Non-Emergent contact if: you have a fever, temperature is above 101, your pain is not controlled, your pain is worsening, your pain is unusual for you, wound has increased drainage, wound has increased redness, wound has increased pain . "Provider Documentation" section prepared by Lianna Beverly. .
[2017-10-27] MEDS ORDERED: OXYC-57 PO (15:59)
[2017-10-27] MEDS ORDERED: PANT1TAB3 PO (16:07)
[2017-10-27] MEDS ORDERED: LORAZEPAM 0.5 MG TAB PO PRN (16:45)
[2017-10-27] MEDS ORDERED: WARFARIN SOD 5 MG TAB PO ONE (16:45)
[2017-10-27] MEDS ORDERED: PROPRANOLOL HCL 20 MG TAB PO ONE (17:30)
--- NOTE | 2017-10-27 17:30 | Hospitalist Progress Note ---
Hospitalist Progress Note Date of Service Oct 27, 2017. Subjective Pt evaluation today including: conversation w/ patient Voiding: no voiding problems Patient is tolerating full liquids diet. She denies nausea or vomiting. She is having bowel movements. She has some abdominal pain with cough. She denies shortness of breath or chest pain, she is still requiring oxygen. She has noted that her legs are quite swollen. I discussed her care with both the surgical PA as well as her primary oncologist regarding future anticoagulation. Constitutional: No fever All Other Systems: Reviewed and Negative Objective Vital Signs Date Time Temp Pulse Resp B/P (MAP) Pulse Ox O2 Delivery O2 Flow Rate FiO2 10/27/17 15:00 36.5 80 17 145/72 (96) 98 Nasal Cannula 2.0 10/27/17 14:23 90 132/60 (84) 10/27/17 14:12 90 132/60 10/27/17 08:57 96 Nasal Cannula 2.0 10/27/17 08:02 Nasal Cannula 2.0 10/27/17 08:00 36.8 76 18 130/68 (88) 96 Nasal Cannula 3.0 10/27/17 05:32 80 138/72 10/27/17 00:56 82 157/59 10/27/17 00:45 Nasal Cannula 10/26/17 22:46 36.7 83 17 128/64 (85) 94 Nasal Cannula 2.0 10/26/17 18:30 96 Nasal Cannula 2.0 10/26/17 18:16 36.4 77 18 132/69 (90) 96 Nasal Cannula 2.0 10/26/17 17:28 99 160/80 Physical Exam General Appearance: WD/WN, no apparent distress, + pertinent finding (With alopecia) Eyes: normal inspection, sclerae normal ENT: hearing grossly normal, pharynx normal Neck: trachea midline Respiratory/Chest: no respiratory distress, no accessory muscle use, + decreased breath sounds (At the bases bilaterally) Cardiovascular: regular rate, rhythm, no murmur, + pertinent finding (2-3+ pitting edema of the legs to the thighs bilaterally) Abdomen: normal bowel sounds, soft, + tenderness (Around surgical sites, dressings are clean dry and intact, no guarding or rebound tenderness) Extremities: + swelling (As above) Neurologic/Psychiatric: alert, normal mood/affect, oriented x 3, + pertinent finding (Essential tremor of the head and neck) Skin: normal color, warm/dry, + pertinent finding (Right anterior chest wall with Port-A-Cath in place not accessed) Laboratory Results Last 24 Hours Test 10/26/17 22:36 10/27/17 07:31 Activated Partial Thromboplast Time 33.9 SECONDS 53.4 SECONDS Partial Thromboplastin Ratio 1.3 2.1 White Blood Count 1.16 K/uL Red Blood Count 2.57 M/uL Hemoglobin 7.8 g/dL Hematocrit 24.2 % Mean Corpuscular Volume 94.2 fL Mean Corpuscular Hemoglobin 30.4 pg Mean Corpuscular Hemoglobin Concent 32.2 g/dl RDW Standard Deviation 58.2 fL RDW Coefficient of Variation 16.8 % Platelet Count 62 K/uL Mean Platelet Volume 10.9 fL Sodium Level 141 mmol/L Potassium Level 2.8 mmol/L Chloride Level 107 mmol/L Carbon Dioxide Level 28 mmol/L Anion Gap 7.0 mmol/L Blood Urea Nitrogen 6 mg/dl Creatinine 0.63 mg/dl Est Creatinine Clear Calc Drug Dose 44.3 ml/min Estimated GFR () 94.1 Estimated GFR (Non- 81.2 BUN/Creatinine Ratio 9.3 Random Glucose 106 mg/dl Calcium Level 7.8 mg/dl Phosphorus Level 2.0 mg/dl Magnesium Level 2.2 mg/dl Assessment and Plan This patient is an 87-year-old female currently being treated for lymphoma with chemotherapy and XRT, essential tremor, hypothyroidism, HTN, and osteoporosis, who presents with acute abdominal pain and was found to have a perforated viscus from a duodenal ulcer. Also at the time of admission, she was found to have bilateral segmental and subsegmental pulmonary emboli. She remained in the intensive care unit postoperatively and was transferred to the medical floor on 10/26/17. There was a question of possible rapid atrial fibrillation, but she actually had sinus tachycardia with frequent PACs. She has had acute postoperative anemia and possibly anemia worsened by chemotherapy and received 1 unit packed red blood transfusion, there is some declining platelet counts as well which were thought to be also secondary from chemotherapy and not from HIT. Perforated viscous/duodenal ulcer/peritonitis/sepsis-now POD #4 status post repair with Abad patch and ventral hernia repair. Growing Alida albicans in peritoneal fluid cultures. Diet is now advanced to full liquids and she is tolerating it well. ALIYA drain still in place General surgery is the primary service -DC IV PPI and switch to p.o. PPI 40 mg twice daily -Advance diet as per general surgery's recommendations -Pain control -Will discontinue IV fluids now that she is tolerating p.o. and is hypervolemic -Continue IV Zosyn and caspofungin and transition to p.o. Augmentin and Diflucan for total 14 day course upon discharge as per infectious disease recommendation HTN/essential tremor/hypokalemia-was having frequent PACs but is not in atrial fibrillation, has been on IV metoprolol but now is taking p.o.. Potassium down to 2.8 today. -Discontinue IV metoprolol -Restart home propranolol 20 mg daily -Restart HCTZ 25 mg daily and follow electrolytes closely -Should auto diuresis as well as diuresis when HCTZ started, but consider IV Lasix -Replace potassium aggressively today with IV and p.o. -Follow PRP Acute bilateral segmental and subsegmental PEs in the setting of malignancy- there was some concern with anemia and continuing low dose heparin drip-there is been discussion of an IVC filter her oncologist prefers to try to avoid this. Lower extremity venous Dopplers negative She remains on heparin drip and will begin Coumadin today (10/27/17) 5 mg as discussed with her primary oncologist Dr. Jean -Follow PT/INR/PTT Acute hypoxic respiratory failure-likely secondary to bilateral pulmonary emboli as well as some volume overload from large amounts of IV fluids -Beginning HCTZ tomorrow as above -Continue supplemental O2 and wean off as able to Hypothyroidism-compensated, TSH several months ago was normal -Restart home p.o. Synthroid dose Pancytopenia/lymphoma-all cell lines are decreased due to recent chemotherapy. -Follow CBC -Transfuse PRBCs irradiated and platelets as needed for hemoglobin less than 7.5 and platelets less than 50 with bleeding or less than 10 K -Consider oncology consultation if continues to worsen -To resume XRT, but chemotherapy likely on hold until full recovery from peritonitis Osteoporosis-on Fosamax at home -Fosamax on hold now -Restart home multivitamins and calcium upon discharge Prophylaxis-is on heparin drip and Coumadin Disposition-referrals out to [facility] with possible discharge on Monday
[2017-10-27] MEDS: CASPOFUNGIN INJ 50 MG in SODIUM CHLORIDE 0.9% 250ML 250 ML IV SCH (18:06)
[2017-10-27 20:21] VITALS: O2SAT 98
[2017-10-27] MEDS: PANTOprazole SOD 40 MG TAB PO SCH (20:52)
[2017-10-27 22:43] VITALS: BP 121/69; PULSE 67; TEMP 36.7; O2SAT 97
[2017-10-28] MEDS: PIPERACILL/TAZOBAC IV 3.375 GM in DEXTROSE 5% 100ML 100 ML IV SCH ×2 (00:31→07:27)
[2017-10-28] MEDS: LEVOTHYROXINE 75 MCG TAB PO SCH (05:55)
[2017-10-28 07:15] VITALS: BP 126/66; PULSE 80; TEMP 36.4; O2SAT 96
[2017-10-28 07:15] LABS: HEMATOCRIT 23.4 % (37-47); HEMOGLOBIN 7.8 g/dL (12.0-16.0); MEAN CELL VOLUME 94.4 fL (80-100); MEAN CORPUSCULAR HEMOGLOBIN 31.5 pg (25-34); MEAN CORPUSCULAR HGB CONC 33.3 g/dl (32-36); RED CELL DISTRIBUTION WIDTH CV 16.4 % (11.5-14.5); RED CELL DISTRIBUTION WIDTH SD 56.6 fL (36.4-46.3); WHITE BLOOD COUNT 2.37 K/uL (4.8-10.8)
[2017-10-28] MEDS: HEPARIN 25,000 UNIT/500ML D5W 500 ML IV PRN ×3 (07:18→15:03)
[2017-10-28 07:24] LABS: MEAN PLATELET VOLUME 11.6 fL (7.4-10.4); PLATELET COUNT 65 K/uL (130-400)
[2017-10-28 07:38] LABS: INR 1.1 (0.9-1.1)
[2017-10-28] MEDS: HYDROCHLOROTHIAZIDE 25 MG TAB PO SCH (07:39)
[2017-10-28] MEDS: PANTOprazole SOD 40 MG TAB PO SCH ×2 (07:39→20:38)
[2017-10-28] MEDS: PROPRANOLOL HCL 20 MG TAB PO SCH (07:39)
[2017-10-28 07:53] LABS: CALCIUM 7.6 mg/dl (8.5-10.1); CREATININE 0.7 mg/dl (0.60-1.20); POTASSIUM 3.2 mmol/L (3.5-5.1)
--- NOTE | 2017-10-28 09:13 | Surgery Progress Note ---
Surgery Progress Note Date of Service Oct 28, 2017. Subjective + feeling well, + ambulating, + bowel movement, + flatus, + pain controlled, No complaints, No nausea, No vomiting Patient out of bed, sitting comfortably in chair. No new concerns or complaints overnight. Objective Vital Signs: Date Time Temp Pulse Resp B/P (MAP) Pulse Ox O2 Delivery O2 Flow Rate FiO2 10/28/17 07:15 36.4 80 18 126/66 (86) 96 Nasal Cannula 2.0 10/28/17 00:30 Nasal Cannula 2.0 10/27/17 22:43 36.7 67 16 121/69 (86) 97 Room Air 10/27/17 20:21 98 Nasal Cannula 2.0 10/27/17 15:00 36.5 80 17 145/72 (96) 98 Nasal Cannula 2.0 10/27/17 14:23 90 132/60 (84) 10/27/17 14:12 90 132/60 10/27/17 08:57 96 Nasal Cannula 2.0 General Appearance: WD/WN, no apparent distress Respiratory/Chest: no respiratory distress, no accessory muscle use Abdomen: soft, + tenderness (at incision site. ) Incision(s): clean, dry, intact Laboratory Results: Results Past 24 Hours Test 10/28/17 06:39 Range/Units White Blood Count 2.37 4.8-10.8 K/uL Red Blood Count 2.48 4.2-5.4 M/uL Hemoglobin 7.8 12.0-16.0 g/dL Hematocrit 23.4 37-47 % Mean Corpuscular Volume 94.4 80-100 fL Mean Corpuscular Hemoglobin 31.5 25-34 pg Mean Corpuscular Hemoglobin Concent 33.3 32-36 g/dl RDW Standard Deviation 56.6 36.4-46.3 fL RDW Coefficient of Variation 16.4 11.5-14.5 % Platelet Count 65 130-400 K/uL Mean Platelet Volume 11.6 7.4-10.4 fL Prothrombin Time 11.5 9.0-12.0 SECONDS Prothromb Time International Ratio 1.1 0.9-1.1 Activated Partial Thromboplast Time 57.0 21.0-31.0 SECONDS Partial Thromboplastin Ratio 2.2 Sodium Level 143 136-145 mmol/L Potassium Level 3.2 3.5-5.1 mmol/L Chloride Level 108 98-107 mmol/L Carbon Dioxide Level 30 21-32 mmol/L Anion Gap 5.0 3-11 mmol/L Blood Urea Nitrogen 3 7-18 mg/dl Creatinine 0.70 0.60-1.20 mg/dl Est Creatinine Clear Calc Drug Dose 39.9 ml/min Estimated GFR () 90.9 Estimated GFR (Non- 78.5 BUN/Creatinine Ratio 4.9 10-20 Random Glucose 99 70-99 mg/dl Calcium Level 7.6 8.5-10.1 mg/dl Assessment & Plan 10/28/17 Patient doing well, no new concerns or complaints overnight. AM labs reviewed. Pain controlled. +BM, tolerating full liquid diet- will advance diet to low fiber diet for lunch and see how she tolerates. 10/27/17 doing fine, Full liquid diet will F/U pt is stable, good urine output D/W ICU attending about treatment plan for PE , ID consult for possible sepsis continue treatment iv antibiotic, iv fluid peritoneal fluid culture repeat labs in am, will F/U
[2017-10-28] MEDS ORDERED: POTASSIUM CHLORIDE 10 MEQ TABCR PO STA (09:25)
[2017-10-28] MEDS: CASPOFUNGIN INJ 50 MG in SODIUM CHLORIDE 0.9% 250ML 250 ML IV SCH (12:10)
[2017-10-28] MEDS: POTASSIUM CHLORIDE 20 MEQ TABCR PO SCH ×2 (13:25→20:38)
[2017-10-28] MEDS ORDERED: MAGNESIUM OXIDE 400 MG TAB PO STA (15:25)
[2017-10-28 15:46] VITALS: BP 145/73; PULSE 80; TEMP 36.8; O2SAT 96
[2017-10-28] MEDS ORDERED: WARFARIN SOD 5 MG TAB PO SCH (16:00)
[2017-10-28] MEDS ORDERED: FUROSEMIDE 20 MG TAB PO ONE (17:00)
[2017-10-28] MEDS: AMOXICILLIN/CLAVULANATE TAB 500 MG TAB PO SCH (17:24)
[2017-10-28 22:51] VITALS: BP 147/79; PULSE 84; TEMP 36.7; O2SAT 97
[2017-10-29] MEDS: LEVOTHYROXINE 75 MCG TAB PO SCH (06:30)
[2017-10-29 07:12] LABS: PTT PATIENT 70.2 SECONDS (21.0-31.0)
[2017-10-29] MEDS: HEPARIN 25,000 UNIT/500ML D5W 500 ML IV PRN ×4 (07:19→23:04)
[2017-10-29 07:36] VITALS: BP 145/76; PULSE 80; TEMP 36.8; O2SAT 96
[2017-10-29] MEDS: AMOXICILLIN/CLAVULANATE TAB 500 MG TAB PO SCH ×2 (08:40→17:59)
[2017-10-29] MEDS: FLUCONAZOLE 100 MG TAB PO SCH (08:41)
[2017-10-29] MEDS: HYDROCHLOROTHIAZIDE 25 MG TAB PO SCH (08:42)
[2017-10-29] MEDS: PROPRANOLOL HCL 20 MG TAB PO SCH (08:42)
[2017-10-29] MEDS: POTASSIUM CHLORIDE 20 MEQ TABCR PO SCH ×2 (08:42→20:43)
[2017-10-29] MEDS: PANTOprazole SOD 40 MG TAB PO SCH ×2 (08:43→20:43)
[2017-10-29] MEDS: MAGNESIUM OXIDE 400 MG TAB PO SCH (08:43)
[2017-10-29 10:23] LABS: NUCLEATED RED BLOOD CELL ABS 0.02 K/uL (0-0)
--- NOTE | 2017-10-29 10:24 | Surgery Progress Note ---
Surgery Progress Note Date of Service Oct 29, 2017. Subjective + feeling well, + bowel movement, + flatus, + pain controlled, No complaints, No nausea, No vomiting Sitting up comfortably in bed. No new concerns or complaints overnight. Objective Vital Signs: Date Time Temp Pulse Resp B/P (MAP) Pulse Ox O2 Delivery O2 Flow Rate FiO2 10/29/17 07:36 36.8 80 16 145/76 (99) 96 Nasal Cannula 2.0 10/28/17 23:25 Nasal Cannula 2.0 10/28/17 22:51 36.7 84 16 147/79 (101) 97 Nasal Cannula 2.0 10/28/17 15:46 36.8 80 16 145/73 (97) 96 Nasal Cannula 2.0 10/28/17 15:44 Nasal Cannula 2.0 10/28/17 08:39 Nasal Cannula 2.0 Physical Exam: ALIYA drainage (70ml of serosang drainage yesterday, serosang drainage today. ) General Appearance: WD/WN, no apparent distress Abdomen: non distended, soft, + pertinent finding (mild tenderness at incision site, new dressing placed yesterday. ) Laboratory Results: Results Past 24 Hours Test 10/29/17 05:59 Range/Units Activated Partial Thromboplast Time 70.2 21.0-31.0 SECONDS Partial Thromboplastin Ratio 2.7 Assessment & Plan 10/29/17 Pain controlled, tolerating low fiber diet. Moving bowels, passing flatus. No new concerns or complaints. [facility] surgeons return Monday for possible discharge. 10/28/17 Patient doing well, no new concerns or complaints overnight. AM labs reviewed. Pain controlled. +BM, tolerating full liquid diet- will advance diet to low fiber diet for lunch and see how she tolerates. 10/27/17 doing fine, Full liquid diet will F/U pt is stable, good urine output D/W ICU attending about treatment plan for PE , ID consult for possible sepsis continue treatment iv antibiotic, iv fluid peritoneal fluid culture repeat labs in am, will F/U
[2017-10-29 10:33] LABS: INR 1.6 (0.9-1.1)
[2017-10-29 10:35] LABS: HEMATOCRIT 28.5 % (37-47); HEMOGLOBIN 9.4 g/dL (12.0-16.0); MEAN CELL VOLUME 94.4 fL (80-100); MEAN CORPUSCULAR HEMOGLOBIN 31.1 pg (25-34); MEAN PLATELET VOLUME 11.5 fL (7.4-10.4); PLATELET COUNT 110 K/uL (130-400); RED CELL DISTRIBUTION WIDTH CV 16.4 % (11.5-14.5); RED CELL DISTRIBUTION WIDTH SD 55.7 fL (36.4-46.3); WHITE BLOOD COUNT 8.35 K/uL (4.8-10.8)
[2017-10-29 10:50] LABS: CALCIUM 8.4 mg/dl (8.5-10.1); CREATININE 0.78 mg/dl (0.60-1.20); POTASSIUM 3.3 mmol/L (3.5-5.1)
[2017-10-29] MEDS ORDERED: POTASSIUM CHLORIDE 10 MEQ TABCR PO STA (11:09)
[2017-10-29 13:31] LABS: PTT PATIENT 61.9 SECONDS (21.0-31.0)
[2017-10-29 15:29] VITALS: BP 121/73; PULSE 88; TEMP 37; O2SAT 96
[2017-10-29] MEDS ORDERED: WARFARIN SOD 5 MG TAB PO SCH (16:00)
[2017-10-29] MEDS: WARFARIN SOD 2.5 MG TAB PO SCH (16:03)
[2017-10-29] MEDS ORDERED: FUROSEMIDE 20 MG TAB PO STA (17:12)
--- NOTE | 2017-10-29 21:06 | Progress Note ---
Subjective Date of Service: late entry for visit Oct 28, 2017. Subjective Pt evaluation today including: conversation w/ patient, conversation w/ family (multiple at bedside), physical exam, chart review, lab review, review of inpatient medication list Pain: abdomen; not worsened by PO intake PO Intake: tolerating diet Voiding: no voiding problems no issues overnight c/o significant edema in both legs no nausea or emesis no fever passing multiple stools Problem List Medical Problems: (1) Bilateral pulmonary embolism Status: Acute (2) Perforated bowel Status: Acute (3) Perforated viscus Status: Acute Review of Systems Constitutional: No fever Respiratory: No shortness of breath, No dyspnea on exertion Cardiac: No chest pain, No orthopnea Abdomen: + see HPI, + pain Objective Vital Signs Date Time Temp Pulse Resp B/P (MAP) Pulse Ox O2 Delivery O2 Flow Rate FiO2 10/29/17 07:36 36.8 80 16 145/76 (99) 96 Nasal Cannula 2.0 10/28/17 23:25 Nasal Cannula 2.0 10/28/17 22:51 36.7 84 16 147/79 (101) 97 Nasal Cannula 2.0 10/28/17 15:46 36.8 80 16 145/73 (97) 96 Nasal Cannula 2.0 10/28/17 15:44 Nasal Cannula 2.0 Physical Exam General Appearance: no apparent distress, + pertinent finding (sitting in chair comfortably) ENT: pharynx normal Neck: no JVD Respiratory/Chest: no respiratory distress, no accessory muscle use, + decreased breath sounds (both bases) Cardiovascular: regular rate, rhythm, no gallop Abdomen: no organomegaly, + distended (mild), + tenderness (incisional) Extremities: + pedal edema, + swelling (severe, from ankles to both thighs ( tense)) Neurologic/Psychiatric: alert, oriented x 3 Laboratory Results Last 24 Hours Test 10/29/17 05:59 Activated Partial Thromboplast Time 70.2 SECONDS Partial Thromboplastin Ratio 2.7 Assessment and Plan 87yo female with: 1. POD #5, s/p Exploratory laparotomy, repair of duodenal perforation with jorgito patch, repair of ventral hernia - diet, pain control, disposition - per general surgery. 2. b/l PEs - risk heightened by her lymphoma - cont heparin infusion; cont coumadin. Daily INR and PTT. 3. severe edema b/l legs - due to fluid resuscitation during her stay. TSH fall 2016 was wnl. Albumin was wnl at time of admission. Cont HCTZ for BP control. lasix 20mg po x 1 this afternoon for additional diuresis. 4. pancytopenia 2nd to recent chemo for lymphoma - counts should rebound over next few days; daily CBC. 5. hypothyroidism - cont synthroid. 6. HTN - controlled with current meds. 7. peritonitis - 2nd to mart albicans; cannot rule out other pathogens but none have grown thus far. Reasonable since she is taking good PO to convert zosyn/caspofungin to augmentin /diflucan, respectively. 8. hypokalemia - 2nd to poor intake post-op; replace, repeat level AM. 9. CKD stage 3 - creatinine stable, repeat labs AM. progressing nicely PT, OT Continued [facility] stay due to: inadequate po fluid intake, ambulation difficulties , multiple IV medications needed Discharge planning: uncertain
--- NOTE | 2017-10-29 21:16 | Progress Note ---
Subjective Date of Service: Oct 29, 2017. Subjective Pt evaluation today including: conversation w/ patient, conversation w/ family (multiple, at bedside), physical exam, chart review, lab review, review of inpatient medication list Pain: abdomen - no worse than yesterday PO Intake: tolerating diet Voiding: no voiding problems feels edema is better today feels overall she is progressing still requiring o2 but denies cough or dyspnea; does not use o2 at home Problem List Medical Problems: (1) Bilateral pulmonary embolism Status: Acute (2) Perforated bowel Status: Acute (3) Perforated viscus Status: Acute Review of Systems Constitutional: No fever, No chills Respiratory: No cough, No sputum, No wheezing, No shortness of breath, No dyspnea on exertion Cardiac: + edema, No chest pain, No orthopnea Abdomen: + see HPI, + pain, No nausea, No vomiting, No GI bleeding Objective Vital Signs Date Time Temp Pulse Resp B/P (MAP) Pulse Ox O2 Delivery O2 Flow Rate FiO2 10/29/17 15:40 Nasal Cannula 2.0 10/29/17 15:29 37.0 88 18 121/73 (89) 96 Nasal Cannula 2.0 10/29/17 07:36 36.8 80 16 145/76 (99) 96 Nasal Cannula 2.0 10/29/17 07:20 Nasal Cannula 2.0 10/28/17 23:25 Nasal Cannula 2.0 10/28/17 22:51 36.7 84 16 147/79 (101) 97 Nasal Cannula 2.0 Physical Exam General Appearance: no apparent distress ENT: pharynx normal (no thrush) Neck: no JVD Respiratory/Chest: no respiratory distress, no accessory muscle use, + decreased breath sounds (bases only) Cardiovascular: regular rate, rhythm, no gallop, no murmur Abdomen: normal bowel sounds, non tender, no organomegaly, + distended (again mild) Extremities: + pedal edema, + swelling (modestly improved in the thighs) Neurologic/Psychiatric: alert, oriented x 3 Laboratory Results Last 24 Hours Test 10/29/17 05:59 10/29/17 09:53 10/29/17 12:47 Activated Partial Thromboplast Time 70.2 SECONDS 61.9 SECONDS Partial Thromboplastin Ratio 2.7 2.4 White Blood Count 8.35 K/uL Red Blood Count 3.02 M/uL Hemoglobin 9.4 g/dL Hematocrit 28.5 % Mean Corpuscular Volume 94.4 fL Mean Corpuscular Hemoglobin 31.1 pg Mean Corpuscular Hemoglobin Concent 33.0 g/dl Platelet Count 110 K/uL Mean Platelet Volume 11.5 fL RDW Standard Deviation 55.7 fL RDW Coefficient of Variation 16.4 % Nucleated RBC Absolute Count (auto) 0.02 K/uL Neutrophils % (Manual) 82.6 % Lymphocytes % (Manual) 0.9 % Monocytes % (Manual) 7.8 % Eosinophils % (Manual) 4.3 % Basophils % (Manual) 0.9 % Metamyelocytes % 2.6 % Myelocytes % 0.9 % Nucleated Red Blood Cells % 0.2 % Neutrophils # (Manual) 6.90 K/uL Total Absolute Neutrophils 6.90 K/uL Lymphocytes # (Manual) 0.08 K/uL Total Absolute Lymphocytes 0.08 K/uL Monocytes # (Manual) 0.65 K/uL Eosinophils # (Manual) 0.36 K/uL Basophils # (Manual) 0.08 K/uL Metamyelocytes # 0.22 K/uL Myelocytes # 0.08 K/uL Toxic Granulation 3+ Dohle Bodies 3+ Ovalocytes 1+ Prothrombin Time 16.4 SECONDS Prothromb Time International Ratio 1.6 Sodium Level 142 mmol/L Potassium Level 3.3 mmol/L Chloride Level 104 mmol/L Carbon Dioxide Level 34 mmol/L Anion Gap 4.0 mmol/L Blood Urea Nitrogen 3 mg/dl Creatinine 0.78 mg/dl Est Creatinine Clear Calc Drug Dose 34.4 ml/min Estimated GFR () 79.8 Estimated GFR (Non- 68.8 BUN/Creatinine Ratio 4.0 Random Glucose 117 mg/dl Calcium Level 8.4 mg/dl Magnesium Level 1.9 mg/dl Assessment and Plan 87yo female with: 1. POD #6, s/p Exploratory laparotomy, repair of duodenal perforation with jorgito patch, repair of ventral hernia - diet, pain control, disposition - per general surgery. 2. b/l PEs - risk heightened by her lymphoma - cont heparin infusion; cont coumadin but lower dose to 2.5mg daily since INR has risen fairly rapidly. Daily INR and PTT. 3. severe edema b/l legs - due to fluid resuscitation during her stay. Mildly improved today with PO lasix yesterday. Will give another dose today. No obvious CHF. 4. pancytopenia 2nd to recent chemo for lymphoma - counts improved today; CBC again in the am. 5. hypothyroidism - cont synthroid. 6. HTN - controlled with current meds. 7. peritonitis - 2nd to mart albicans; cannot rule out other pathogens but none have grown thus far. Continue augmentin/diflucan. 8. hypokalemia - 2nd to poor intake post-op; improving but still not normal; replace once again, repeat level AM. Mag noted to be normal. 9. CKD stage 3 - creatinine stable, repeat labs AM. cont PT, OT dispo - hopefully [facility] looking through her records there has been mention of taking prednisone daily pre-hospitalization, but I can't see she has received any her entire stay I cannot tell looking through the EMR if the prednisone is a CHRONIC med Will need to investigate this taylor to avoid an adrenal crisis Continued [facility] stay due to: inadequate po fluid intake, ambulation difficulties , multiple IV medications needed Discharge planning: rehab hospital (vs snf for rehab)
[2017-10-29 21:39] VITALS: O2SAT 92
[2017-10-29 22:15] VITALS: O2SAT 88
[2017-10-29 22:17] VITALS: O2SAT 96
[2017-10-29 22:53] VITALS: BP 145/78; PULSE 77; TEMP 36.7; O2SAT 96
[2017-10-30] VITALS (7 sets, daily range): BP systolic 110–135; BP diastolic 68–80; PULSE 77–95; TEMP 36.4–36.8; O2SAT 92–97
[2017-10-30 06:14] LABS: HEMATOCRIT 26.6 % (37-47); HEMOGLOBIN 8.8 g/dL (12.0-16.0); MEAN CORPUSCULAR HEMOGLOBIN 31.4 pg (25-34); MEAN CORPUSCULAR HGB CONC 33.1 g/dl (32-36); MEAN PLATELET VOLUME 11.4 fL (7.4-10.4); PLATELET COUNT 136 K/uL (130-400); RED CELL DISTRIBUTION WIDTH CV 16.2 % (11.5-14.5); RED CELL DISTRIBUTION WIDTH SD 55.3 fL (36.4-46.3); WHITE BLOOD COUNT 11.51 K/uL (4.8-10.8)
[2017-10-30 06:38] LABS: INR 1.9 (0.9-1.1)
[2017-10-30 06:42] LABS: CALCIUM 8.6 mg/dl (8.5-10.1); CREATININE 0.79 mg/dl (0.60-1.20); POTASSIUM 3.6 mmol/L (3.5-5.1)
[2017-10-30] MEDS: LEVOTHYROXINE 75 MCG TAB PO SCH (06:43)
[2017-10-30] MEDS: HEPARIN 25,000 UNIT/500ML D5W 500 ML IV PRN ×5 (06:58→15:12)
[2017-10-30] MEDS ORDERED: OXYCODONE/ACETAMINOPHEN 5-325 TAB PO PRN ×2 (08:15)
[2017-10-30] MEDS ORDERED: ACETAMINOPHEN 325 MG TAB PO PRN (08:30)
[2017-10-30] MEDS: AMOXICILLIN/CLAVULANATE TAB 500 MG TAB PO SCH ×2 (08:49→17:52)
[2017-10-30] MEDS: FLUCONAZOLE 100 MG TAB PO SCH (08:50)
[2017-10-30] MEDS: HYDROCHLOROTHIAZIDE 25 MG TAB PO SCH (08:51)
[2017-10-30] MEDS: POTASSIUM CHLORIDE 20 MEQ TABCR PO SCH ×2 (08:51→20:46)
[2017-10-30] MEDS: PROPRANOLOL HCL 20 MG TAB PO SCH (08:51)
[2017-10-30] MEDS: MAGNESIUM OXIDE 400 MG TAB PO SCH (08:51)
[2017-10-30] MEDS: PANTOprazole SOD 40 MG TAB PO SCH ×2 (08:52→20:46)
--- NOTE | 2017-10-30 11:40 | Surgery Progress Note ---
Surgery Progress Note Date of Service Oct 30, 2017. Subjective Post OP Day: POD # 7 s/p ex lap, repair of duodenal ulcer perforation with Abad patch Objective Vital Signs: Date Time Temp Pulse Resp B/P (MAP) Pulse Ox O2 Delivery O2 Flow Rate FiO2 10/30/17 08:00 97 Nasal Cannula 10/30/17 07:57 36.6 92 22 118/72 (87) 94 Nasal Cannula 2.5 10/30/17 07:15 Nasal Cannula 2.0 10/30/17 06:49 36.4 88 18 135/80 (98) 96 Nasal Cannula 2.0 10/30/17 00:15 96 Nasal Cannula 2.0 10/29/17 22:53 36.7 77 18 145/78 (100) 96 Nasal Cannula 2.0 10/29/17 22:17 96 Nasal Cannula 2.0 10/29/17 22:15 88 Room Air 10/29/17 21:39 92 Room Air 10/29/17 15:40 Nasal Cannula 2.0 10/29/17 15:29 37.0 88 18 121/73 (89) 96 Nasal Cannula 2.0 General Appearance: WD/WN, no apparent distress Head: normocephalic, atraumatic Neck: trachea midline Respiratory/Chest: no respiratory distress, no accessory muscle use, + pertinent finding (oxygen via nasal cannula) Abdomen: non distended, soft, no organomegaly, no pulsatile mass, + tenderness (at incision site appropriate post op) Incision(s): clean, dry, intact, no erythema, no drainage, ecchymosis ( surrounding midline incision), findings (moe present and intact) Laboratory Results: Results Past 24 Hours Test 10/29/17 12:47 10/30/17 05:30 Range/Units Activated Partial Thromboplast Time 61.9 90.0 21.0-31.0 SECONDS Partial Thromboplastin Ratio 2.4 3.5 White Blood Count 11.51 4.8-10.8 K/uL Red Blood Count 2.80 4.2-5.4 M/uL Hemoglobin 8.8 12.0-16.0 g/dL Hematocrit 26.6 37-47 % Mean Corpuscular Volume 95.0 80-100 fL Mean Corpuscular Hemoglobin 31.4 25-34 pg Mean Corpuscular Hemoglobin Concent 33.1 32-36 g/dl Platelet Count 136 130-400 K/uL Mean Platelet Volume 11.4 7.4-10.4 fL RDW Standard Deviation 55.3 36.4-46.3 fL RDW Coefficient of Variation 16.2 11.5-14.5 % Neutrophils % (Manual) 75.7 % Lymphocytes % (Manual) 8.7 % Monocytes % (Manual) 10.4 % Eosinophils % (Manual) 3.5 % Myelocytes % 1.7 % Neutrophils # (Manual) 8.71 1.4-6.5 K/uL Total Absolute Neutrophils 8.71 1.4-6.5 K/uL Lymphocytes # (Manual) 1.00 1.2-3.4 K/uL Total Absolute Lymphocytes 1.00 1.2-3.4 K/uL Monocytes # (Manual) 1.20 0.11-0.59 K/uL Eosinophils # (Manual) 0.40 0-0.5 K/uL Myelocytes # 0.20 0-0 K/uL Red Blood Cell Morphology Unremarkable Prothrombin Time 19.5 9.0-12.0 SECONDS Prothromb Time International Ratio 1.9 0.9-1.1 Sodium Level 141 136-145 mmol/L Potassium Level 3.6 3.5-5.1 mmol/L Chloride Level 102 98-107 mmol/L Carbon Dioxide Level 33 21-32 mmol/L Anion Gap 5.0 3-11 mmol/L Blood Urea Nitrogen 3 7-18 mg/dl Creatinine 0.79 0.60-1.20 mg/dl Est Creatinine Clear Calc Drug Dose 34.0 ml/min Estimated GFR () 78.6 Estimated GFR (Non- 67.8 BUN/Creatinine Ratio 3.8 10-20 Random Glucose 101 70-99 mg/dl Calcium Level 8.6 8.5-10.1 mg/dl Magnesium Level 1.9 1.8-2.4 mg/dl Assessment & Plan POD # 7 s/p exploratory laparotomy, repair of duodenal ulcer perforation with Abad patch - afebrile - mild leukocytosis of 11.5K - minimal abdominal pain, controlled - + bowel function - abdominal culture positive for Alida Plan: Continue current pain management , added po Percocet and Tylenol as needed for pain Continue PO Augmentin and Diflucan, Day 2/14 Keep O2 sats > 92% OOB to chair, ambulation with assistance Continue PT/OT Continue ALIYA drain to bulb suction Repeat am cbc Await Medicine evaluation today, currently still receiving IV Heparin , awaiting for INR to be therapeutic level Plan for [facility] for rehabilitation Dr. Bloom has seen and examined patient, agrees with above
[2017-10-30] MEDS ORDERED: AMOX1TAB42 PO (11:57)
[2017-10-30] MEDS ORDERED: DFL100 PO (11:57)
[2017-10-30 14:19] LABS: PTT PATIENT 64.7 SECONDS (21.0-31.0)
[2017-10-30] MEDS: WARFARIN SOD 2.5 MG TAB PO SCH (16:39)
--- NOTE | 2017-10-30 19:58 | Progress Note ---
Subjective Date of Service: Oct 30, 2017. Subjective Pt evaluation today including: conversation w/ patient, physical exam, chart review, lab review Pain: abdomen but improved PO Intake: tolerating diet Voiding: no voiding problems feeling better each day no nausea or emesis stooling well eating ok edema is less in her legs o2 weaned off denies cough/dyspnea at rest Problem List Medical Problems: (1) Bilateral pulmonary embolism Status: Acute (2) Perforated bowel Status: Acute (3) Perforated viscus Status: Acute Review of Systems Constitutional: No fever Respiratory: No shortness of breath Cardiac: No chest pain Objective Vital Signs Date Time Temp Pulse Resp B/P (MAP) Pulse Ox O2 Delivery O2 Flow Rate FiO2 10/30/17 15:52 36.8 80 15 110/68 (82) 92 Room Air 10/30/17 12:43 36.7 77 22 130/72 (91) 94 Room Air 10/30/17 08:00 97 Nasal Cannula 2.0 10/30/17 07:57 36.6 92 22 118/72 (87) 97 Nasal Cannula 2.5 10/30/17 07:15 Nasal Cannula 2.0 10/30/17 06:49 36.4 88 18 135/80 (98) 96 Nasal Cannula 2.0 10/30/17 00:15 96 Nasal Cannula 2.0 10/29/17 22:53 36.7 77 18 145/78 (100) 96 Nasal Cannula 2.0 10/29/17 22:17 96 Nasal Cannula 2.0 10/29/17 22:15 88 Room Air 10/29/17 21:39 92 Room Air Physical Exam General Appearance: no apparent distress ENT: pharynx normal Neck: no JVD Respiratory/Chest: no respiratory distress, no accessory muscle use, + decreased breath sounds (bases) Cardiovascular: regular rate, rhythm, no gallop Abdomen: normal bowel sounds, soft, no organomegaly, + tenderness (over surgical incision; ALIYA drain in place) Extremities: + pedal edema, + swelling (from ankles to the thighs, but improved today) Neurologic/Psychiatric: alert, oriented x 3 Skin: + pallor, + pertinent finding (incision/moe intact on abdominal wall ; ecchymoses abdominal wall ) Laboratory Results Last 24 Hours Test 10/30/17 05:30 10/30/17 13:44 White Blood Count 11.51 K/uL Red Blood Count 2.80 M/uL Hemoglobin 8.8 g/dL Hematocrit 26.6 % Mean Corpuscular Volume 95.0 fL Mean Corpuscular Hemoglobin 31.4 pg Mean Corpuscular Hemoglobin Concent 33.1 g/dl Platelet Count 136 K/uL Mean Platelet Volume 11.4 fL RDW Standard Deviation 55.3 fL RDW Coefficient of Variation 16.2 % Neutrophils % (Manual) 75.7 % Lymphocytes % (Manual) 8.7 % Monocytes % (Manual) 10.4 % Eosinophils % (Manual) 3.5 % Myelocytes % 1.7 % Neutrophils # (Manual) 8.71 K/uL Total Absolute Neutrophils 8.71 K/uL Lymphocytes # (Manual) 1.00 K/uL Total Absolute Lymphocytes 1.00 K/uL Monocytes # (Manual) 1.20 K/uL Eosinophils # (Manual) 0.40 K/uL Myelocytes # 0.20 K/uL Red Blood Cell Morphology Unremarkable Prothrombin Time 19.5 SECONDS Prothromb Time International Ratio 1.9 Activated Partial Thromboplast Time 90.0 SECONDS 64.7 SECONDS Partial Thromboplastin Ratio 3.5 2.5 Sodium Level 141 mmol/L Potassium Level 3.6 mmol/L Chloride Level 102 mmol/L Carbon Dioxide Level 33 mmol/L Anion Gap 5.0 mmol/L Blood Urea Nitrogen 3 mg/dl Creatinine 0.79 mg/dl Est Creatinine Clear Calc Drug Dose 34.0 ml/min Estimated GFR () 78.6 Estimated GFR (Non- 67.8 BUN/Creatinine Ratio 3.8 Random Glucose 101 mg/dl Calcium Level 8.6 mg/dl Magnesium Level 1.9 mg/dl Assessment and Plan 87yo female with: 1. POD #7, s/p Exploratory laparotomy, repair of duodenal perforation with jorgito patch, repair of ventral hernia - diet, pain control, disposition - per general surgery. 2. b/l PEs - risk heightened by her lymphoma - cont heparin infusion; cont coumadin same dose of 2.5mg daily. Daily INR and PTT. needs 2-day overlap therapy once INR is >2. 3. severe edema b/l legs - due to fluid resuscitation during her stay. Again improved today with PO lasix and HCTZ. No obvious CHF. BMP/mag in am. 4. pancytopenia 2nd to recent chemo for lymphoma - counts again improved today ; CBC in am for stability . 5. hypothyroidism - cont synthroid. 6. HTN - controlled with current meds. 7. peritonitis - 2nd to mart albicans; cannot rule out other pathogens but none have grown thus far. Continue augmentin/diflucan. 8. hypokalemia - resolved. BMP in am for stability. 9. CKD stage 3 - creatinine stable, repeat labs AM. cont PT, [facility]po - [facility], hopefully next 1-2 days called & spoke with [facility], the patient's home pharmacy they confirmed Mrs. Kovacs is NOT on daily prednisone; she only uses the prednisone on certain days of her chemo cycles Continued [facility] stay due to: ambulation difficulties, multiple IV medications needed Discharge planning: rehab hospital (vs snf for rehab)
[2017-10-31] MEDS: LEVOTHYROXINE 75 MCG TAB PO SCH (05:50)
[2017-10-31 06:44] LABS: HEMATOCRIT 29.2 % (37-47); HEMOGLOBIN 9.4 g/dL (12.0-16.0); MEAN CELL VOLUME 95.4 fL (80-100); MEAN CORPUSCULAR HEMOGLOBIN 30.7 pg (25-34); MEAN CORPUSCULAR HGB CONC 32.2 g/dl (32-36); MEAN PLATELET VOLUME 10.8 fL (7.4-10.4); PLATELET COUNT 177 K/uL (130-400); RED CELL DISTRIBUTION WIDTH CV 16.4 % (11.5-14.5); RED CELL DISTRIBUTION WIDTH SD 56.2 fL (36.4-46.3)
[2017-10-31 07:03] LABS: INR 1.9 (0.9-1.1)
[2017-10-31 07:05] LABS: PTT PATIENT 90.3 SECONDS (21.0-31.0)
[2017-10-31] MEDS: HEPARIN 25,000 UNIT/500ML D5W 500 ML IV PRN ×2 (07:21→07:53)
[2017-10-31 07:22] VITALS: BP 123/75; PULSE 83; TEMP 36.6; O2SAT 92
[2017-10-31 07:23] LABS: CALCIUM 8.6 mg/dl (8.5-10.1); CREATININE 0.91 mg/dl (0.60-1.20); POTASSIUM 3.6 mmol/L (3.5-5.1)
[2017-10-31 07:35] VITALS: BP 100/51; PULSE 62; TEMP 36.7; O2SAT 91
[2017-10-31] MEDS: FUROSEMIDE 20 MG TAB PO SCH (08:52)
[2017-10-31] MEDS: FLUCONAZOLE 100 MG TAB PO SCH (08:53)
[2017-10-31] MEDS: MAGNESIUM OXIDE 400 MG TAB PO SCH (08:53)
[2017-10-31] MEDS: PANTOprazole SOD 40 MG TAB PO SCH ×2 (08:53→21:19)
[2017-10-31] MEDS: AMOXICILLIN/CLAVULANATE TAB 500 MG TAB PO SCH ×2 (08:53→18:28)
[2017-10-31] MEDS: POTASSIUM CHLORIDE 20 MEQ TABCR PO SCH ×2 (08:53→21:19)
[2017-10-31] MEDS: PROPRANOLOL HCL 20 MG TAB PO SCH (08:53)
--- NOTE | 2017-10-31 10:25 | Surgery Progress Note ---
Surgery Progress Note Date of Service Oct 31, 2017. Subjective + feeling well pt is doing fine, no abdominal pain, no nausea , no fever, ALIYA- 50ml, clear Objective Vital Signs: Date Time Temp Pulse Resp B/P (MAP) Pulse Ox O2 Delivery O2 Flow Rate FiO2 10/31/17 08:07 Room Air 10/31/17 07:35 36.7 62 15 100/51 (67) 91 Room Air 10/31/17 07:22 36.6 83 16 123/75 (91) 92 Room Air 10/30/17 23:15 Room Air 10/30/17 23:04 36.8 95 16 113/69 (84) 93 Room Air 10/30/17 15:52 36.8 80 15 110/68 (82) 92 Room Air 10/30/17 15:12 Room Air 10/30/17 12:43 36.7 77 22 130/72 (91) 94 Room Air General Appearance: WD/WN, no apparent distress Head: normocephalic Neck: supple, no JVD Respiratory/Chest: chest non-tender, lungs clear Cardiovascular: regular rate, rhythm, no edema, no gallop Abdomen: normal bowel sounds, non tender, non distended, soft Incision(s): clean, dry, intact Extremities: normal range of motion, non-tender, normal inspection Laboratory Results: Results Past 24 Hours Test 10/30/17 13:44 10/31/17 06:24 Range/Units Activated Partial Thromboplast Time 64.7 90.3 21.0-31.0 SECONDS Partial Thromboplastin Ratio 2.5 3.5 White Blood Count 10.10 4.8-10.8 K/uL Red Blood Count 3.06 4.2-5.4 M/uL Hemoglobin 9.4 12.0-16.0 g/dL Hematocrit 29.2 37-47 % Mean Corpuscular Volume 95.4 80-100 fL Mean Corpuscular Hemoglobin 30.7 25-34 pg Mean Corpuscular Hemoglobin Concent 32.2 32-36 g/dl RDW Standard Deviation 56.2 36.4-46.3 fL RDW Coefficient of Variation 16.4 11.5-14.5 % Platelet Count 177 130-400 K/uL Mean Platelet Volume 10.8 7.4-10.4 fL Prothrombin Time 19.6 9.0-12.0 SECONDS Prothromb Time International Ratio 1.9 0.9-1.1 Sodium Level 140 136-145 mmol/L Potassium Level 3.6 3.5-5.1 mmol/L Chloride Level 101 98-107 mmol/L Carbon Dioxide Level 35 21-32 mmol/L Anion Gap 4.0 3-11 mmol/L Blood Urea Nitrogen 6 7-18 mg/dl Creatinine 0.91 0.60-1.20 mg/dl Est Creatinine Clear Calc Drug Dose 29.5 ml/min Estimated GFR () 66.2 Estimated GFR (Non- 57.1 BUN/Creatinine Ratio 6.0 10-20 Random Glucose 109 70-99 mg/dl Calcium Level 8.6 8.5-10.1 mg/dl Magnesium Level 1.9 1.8-2.4 mg/dl Assessment & Plan pt is stable, good urine output D/W ICU attending about treatment plan for PE , ID consult for possible sepsis continue treatment iv antibiotic, iv fluid peritoneal fluid culture repeat labs in am, will F/U 10/24/2017 I update about OR finding and the surgery pt had, pt understood, I answered all questions, continue treatment, repeat labs in am, will F/U 10/25/2017 low H/H 6.8, but pt's BP, HR are stable KUB, CXR-reviewed the reports continue treatment, december D/C NGT, Upper Gi study tomorrow will F/U 10/27/2017 doing fine, Full liquid diet will F/U 10/31/2017 pt can be discharged today F/u Dr. Payne 1 week, , I will pull out ALIYA at my office. she can take a shower on 11/01/2017 pt is stable, good urine output D/W ICU attending about treatment plan for PE , ID consult for possible sepsis continue treatment iv antibiotic, iv fluid peritoneal fluid culture repeat labs in am, will F/U 10/24/2017 I update about OR finding and the surgery pt had, pt understood, I answered all questions, continue treatment, repeat labs in am, will F/U 10/25/2017 low H/H 6.8, but pt's BP, HR are stable KUB, CXR-reviewed the reports continue treatment, december D/C NGT, Upper Gi study tomorrow will F/U 10/27/2017 doing fine, Full liquid diet will F/U
[2017-10-31 13:58] LABS: HEMATOCRIT 31.4 % (37-47); HEMOGLOBIN 10.3 g/dL (12.0-16.0); MEAN CELL VOLUME 95.7 fL (80-100); MEAN CORPUSCULAR HEMOGLOBIN 31.4 pg (25-34); MEAN CORPUSCULAR HGB CONC 32.8 g/dl (32-36); MEAN PLATELET VOLUME 10.5 fL (7.4-10.4); PLATELET COUNT 205 K/uL (130-400); RED CELL DISTRIBUTION WIDTH CV 16.6 % (11.5-14.5); RED CELL DISTRIBUTION WIDTH SD 56.4 fL (36.4-46.3); WHITE BLOOD COUNT 12.08 K/uL (4.8-10.8)
[2017-10-31 14:15] LABS: PTT PATIENT 60.4 SECONDS (21.0-31.0)
[2017-10-31 14:54] VITALS: BP 110/62; PULSE 88; TEMP 37; O2SAT 94
[2017-10-31] MEDS ORDERED: ENOXAPARIN 1 MG/KG SQ SCH (15:00)
[2017-10-31] MEDS ORDERED: ENOXAPARIN 60 MG/0.6 ML SYR SQ SCH (15:00)
[2017-10-31] MEDS ORDERED: NURSING VERBAL MED ORDER ONE (15:45)
[2017-10-31] MEDS ORDERED: WARFARIN SOD 2.5 MG TAB PO SCH (16:00)
[2017-10-31] MEDS: WARFARIN SOD 2.5 MG TAB PO SCH (16:36)
[2017-10-31] MEDS: ENOXAPARIN 60 MG/0.6 ML SYR SQ SCH (18:29)
--- NOTE | 2017-10-31 19:07 | Infectious Disease Progress Nt ---
Progress Note Date of Service Oct 31, 2017. Subjective Pt evaluation today including: conversation w/ patient, physical exam, chart review, lab review, review of studies, conversation w/ healthcare risk control consultant, review of inpatient medication list Overall appears to be making slow improvement. Remains afebrile. Now on oral antibiotics, no worsening abdominal pain. All Other Systems: Reviewed and Negative Medications Current Inpatient Medications Medications (Trade) Dose Ordered Sig/Madonna Route Start Time Stop Time Status Last Admin Dose Admin Ondansetron HCl (Zofran Inj) 4 mg Q4H PRN IV 10/23/17 11:00 11/22/17 10:59 Morphine Sulfate (MoRPHine SULFATE INJ) 2 mg Q3HWA PRN IV 10/23/17 11:00 11/06/17 10:59 10/27/17 08:02 2 MG Menthol (Nice José) 1 joés PRN PRN JOSÉ 10/23/17 21:00 11/22/17 20:59 Hydromorphone HCl (Dilaudid Inj) 0.5 mg Q3H PRN IV 10/24/17 10:30 11/06/17 10:59 Hydrochlorothiazide (Hydrochlorothiazide Tab) 25 mg DAILY PO 10/28/17 09:00 11/27/17 08:59 Future Hold 10/30/17 08:51 25 MG Levothyroxine Sodium (Synthroid Tab) 75 mcg DAILYBB PO 10/28/17 06:00 11/27/17 05:59 10/31/17 05:50 75 MCG Lorazepam (Ativan Tab) 0.25 mg TID PRN PO 10/27/17 16:45 11/26/17 16:44 Propranolol HCl (Inderal Tab) 20 mg QAM PO 10/28/17 09:00 11/27/17 08:59 10/31/17 08:53 20 MG Pantoprazole Sodium (Protonix Tab) 40 mg BID PO 10/27/17 21:00 11/26/17 20:59 10/31/17 08:53 40 MG Potassium Chloride (Klor-Con Tab) 20 meq BID PO 10/28/17 14:00 11/27/17 13:59 10/31/17 08:53 20 MEQ Magnesium Oxide (Mag-Ox Tab) 400 mg QAM PO 10/29/17 09:00 11/28/17 08:59 10/31/17 08:53 400 MG Amoxicillin/ Clavulanate Potassium (Augmentin Tab) 500 mg BIDM PO 10/28/17 17:45 11/07/17 17:44 10/31/17 18:28 500 MG Fluconazole (Diflucan Tab) 200 mg QAM PO 10/29/17 09:00 11/08/17 08:59 10/31/17 08:53 200 MG Warfarin Sodium (Coumadin Tab) 2.5 mg DAILY@16 PO 10/29/17 16:00 11/27/17 15:59 10/31/17 16:36 2.5 MG Oxycodone/ Acetaminophen (Percocet 5-325mg Tab) `1-2 tabs for pain 1 tab ... Q4H PRN PO 10/30/17 08:15 11/13/17 08:14 Acetaminophen (Tylenol Tab) 650 mg Q4H PRN PO 10/30/17 08:30 11/29/17 08:29 Furosemide (Lasix Tab) 20 mg QAM PO 10/31/17 09:00 11/30/17 08:59 10/31/17 08:52 20 MG Enoxaparin Sodium (Lovenox Inj) 60 mg Q12@0700,1900 SQ 10/31/17 19:00 11/30/17 14:59 10/31/17 18:29 60 MG Objective Vital Signs Date Time Temp Pulse Resp B/P (MAP) Pulse Ox O2 Delivery O2 Flow Rate FiO2 10/31/17 14:54 37.0 88 16 110/62 (78) 94 Room Air 10/31/17 08:07 Room Air 10/31/17 07:35 36.7 62 15 100/51 (67) 91 Room Air 10/31/17 07:22 36.6 83 16 123/75 (91) 92 Room Air 10/30/17 23:15 Room Air 10/30/17 23:04 36.8 95 16 113/69 (84) 93 Room Air Physical Exam General Appearance: WD/WN, no apparent distress Eyes: normal inspection, EOMI, sclerae normal ENT: normal ENT inspection, pharynx normal Neck: supple, no adenopathy, thyroid normal, trachea midline Respiratory/Chest: chest non-tender, lungs clear, normal breath sounds, no respiratory distress Cardiovascular: regular rate, rhythm, no gallop, no murmur Abdomen: normal bowel sounds, non tender, soft, no organomegaly Extremities: non-tender, no calf tenderness Neurologic/Psychiatric: alert, oriented x 3 Skin: normal color, warm/dry, no rash Lymphatic: no adenopathy Laboratory Results Last 24 Hours Test 10/31/17 06:24 10/31/17 13:51 White Blood Count 10.10 K/uL 12.08 K/uL Red Blood Count 3.06 M/uL 3.28 M/uL Hemoglobin 9.4 g/dL 10.3 g/dL Hematocrit 29.2 % 31.4 % Mean Corpuscular Volume 95.4 fL 95.7 fL Mean Corpuscular Hemoglobin 30.7 pg 31.4 pg Mean Corpuscular Hemoglobin Concent 32.2 g/dl 32.8 g/dl RDW Standard Deviation 56.2 fL 56.4 fL RDW Coefficient of Variation 16.4 % 16.6 % Platelet Count 177 K/uL 205 K/uL Mean Platelet Volume 10.8 fL 10.5 fL Prothrombin Time 19.6 SECONDS Prothromb Time International Ratio 1.9 Activated Partial Thromboplast Time 90.3 SECONDS 60.4 SECONDS Partial Thromboplastin Ratio 3.5 2.3 Sodium Level 140 mmol/L Potassium Level 3.6 mmol/L Chloride Level 101 mmol/L Carbon Dioxide Level 35 mmol/L Anion Gap 4.0 mmol/L Blood Urea Nitrogen 6 mg/dl Creatinine 0.91 mg/dl Est Creatinine Clear Calc Drug Dose 29.5 ml/min Estimated GFR () 66.2 Estimated GFR (Non- 57.1 BUN/Creatinine Ratio 6.0 Random Glucose 109 mg/dl Calcium Level 8.6 mg/dl Magnesium Level 1.9 mg/dl Assessment and Plan (1) Peritonitis (acute) generalized (2) Perforated bowel Status: Acute 87-year-old female with lymphoma on chemotherapy now presents with duodenal perforation with peritonitis, as well as bilateral pulmonary emboli. Now status post emergency laparotomy and repair. Patient continues to slowly improve, will continue on Augmentin, likely in the range of 1-2 weeks depending on clinical response. Will follow.
--- NOTE | 2017-10-31 20:31 | Progress Note ---
Subjective Date of Service: Oct 31, 2017. Subjective Pt evaluation today including: conversation w/ patient, conversation w/ family (niece at bedside), physical exam, chart review, lab review, conversation w/ big machine consultant (gen surg), review of inpatient medication list Pain: abdomnen - no worse than yesterday PO Intake: tolerating diet Voiding: no voiding problems feels good anxious to get rehab started at [facility] edema improved once again no dyspnea no cough Problem List Medical Problems: (1) Bilateral pulmonary embolism Status: Acute (2) Perforated bowel Status: Acute (3) Perforated viscus Status: Acute Review of Systems Constitutional: No fever Respiratory: No shortness of breath, No dyspnea on exertion Cardiac: + edema, No chest pain, No orthopnea, No PND Abdomen: + pain, No nausea, No vomiting, No GI bleeding Objective Vital Signs Date Time Temp Pulse Resp B/P (MAP) Pulse Ox O2 Delivery O2 Flow Rate FiO2 10/31/17 14:54 37.0 88 16 110/62 (78) 94 Room Air 10/31/17 08:07 Room Air 10/31/17 07:35 36.7 62 15 100/51 (67) 91 Room Air 10/31/17 07:22 36.6 83 16 123/75 (91) 92 Room Air 10/30/17 23:15 Room Air 10/30/17 23:04 36.8 95 16 113/69 (84) 93 Room Air Physical Exam General Appearance: no apparent distress ENT: pharynx normal Neck: no JVD Respiratory/Chest: no respiratory distress, no accessory muscle use, + decreased breath sounds (bases) Cardiovascular: regular rate, rhythm, no gallop, no murmur, + extra beats Abdomen: normal bowel sounds, soft, no organomegaly, + distended (mild), + tenderness (minimal incisional pain) Extremities: + pedal edema (improved, 1+ b/l today), + swelling (of thighs markedly improved) Neurologic/Psychiatric: alert, oriented x 3 Skin: + pertinent finding (moe intact abdominal incision; ecchymoses of abdominal wall) Laboratory Results Last 24 Hours Test 10/31/17 06:24 10/31/17 13:51 White Blood Count 10.10 K/uL 12.08 K/uL Red Blood Count 3.06 M/uL 3.28 M/uL Hemoglobin 9.4 g/dL 10.3 g/dL Hematocrit 29.2 % 31.4 % Mean Corpuscular Volume 95.4 fL 95.7 fL Mean Corpuscular Hemoglobin 30.7 pg 31.4 pg Mean Corpuscular Hemoglobin Concent 32.2 g/dl 32.8 g/dl RDW Standard Deviation 56.2 fL 56.4 fL RDW Coefficient of Variation 16.4 % 16.6 % Platelet Count 177 K/uL 205 K/uL Mean Platelet Volume 10.8 fL 10.5 fL Prothrombin Time 19.6 SECONDS Prothromb Time International Ratio 1.9 Activated Partial Thromboplast Time 90.3 SECONDS 60.4 SECONDS Partial Thromboplastin Ratio 3.5 2.3 Sodium Level 140 mmol/L Potassium Level 3.6 mmol/L Chloride Level 101 mmol/L Carbon Dioxide Level 35 mmol/L Anion Gap 4.0 mmol/L Blood Urea Nitrogen 6 mg/dl Creatinine 0.91 mg/dl Est Creatinine Clear Calc Drug Dose 29.5 ml/min Estimated GFR () 66.2 Estimated GFR (Non- 57.1 BUN/Creatinine Ratio 6.0 Random Glucose 109 mg/dl Calcium Level 8.6 mg/dl Magnesium Level 1.9 mg/dl Assessment and Plan 87yo female with: 1. POD #8, s/p Exploratory laparotomy for repair of duodenal perforation with jorgito patch, repair of ventral hernia - diet, pain control, disposition - per general surgery. Anticipate d/c to [facility] tomorrow on 11/01/17. 2. b/l PEs - likely due to lymphoma - spoke with Dr. Payne from surgery - he is ok with systemic lovenox injections. stop heparin infusion. transition to lovenox 1mg/kg BID. cont coumadin but give additional 2.5mg today for total 5mg INR in am will need 2 days of overlap therapy once INR is >2 3. severe edema b/l legs - due to fluid resuscitation during her stay. Marked improvement with diuretics over the last 3-4 days. Hold HCTZ due to low BP. Continue lasix 20mg po qam with K supplentation. BMP in am. No obvious CHF. 4. pancytopenia 2nd to recent chemo for lymphoma - counts again improved today ; CBC in am for stability. 5. hypothyroidism - cont synthroid. TSH 04/2017 was wnl. 6. HTN - controlled with current meds but holding HCTZ for now due to low- normal readings. 7. peritonitis - 2nd to mart albicans; cannot rule out other pathogens but none have grown thus far. Continue augmentin/diflucan. 8. hypokalemia - resolved. BMP in am for stability. Check mag as well. 9. CKD stage 3 - creatinine stable, repeat labs AM. 10. abdominal pain - lipase was elevated at time of admission (about 1000) - will recheck tomorrow am to ensure normalization cont PT, OT dispo - [facility], hopefully tomorrow called & spoke with [facility] pharmacy, the patient's home pharmacy they confirmed Mrs. Kovacs is NOT on daily prednisone; she only uses the prednisone on certain days of her chemo cycles for the lymphoma Continued [facility] stay due to: ambulation difficulties, multiple IV medications needed Discharge planning: rehab hospital (vs snf for rehab)
[2017-10-31 22:49] VITALS: BP 115/69; PULSE 91; TEMP 36.6; O2SAT 92
[2017-11-01 00:10] VITALS: O2SAT 92
[2017-11-01] MEDS: LEVOTHYROXINE 75 MCG TAB PO SCH (06:25)
[2017-11-01 06:33] LABS: HEMATOCRIT 29.6 % (37-47); HEMOGLOBIN 9.4 g/dL (12.0-16.0); MEAN CELL VOLUME 96.1 fL (80-100); MEAN CORPUSCULAR HEMOGLOBIN 30.5 pg (25-34); MEAN CORPUSCULAR HGB CONC 31.8 g/dl (32-36); MEAN PLATELET VOLUME 10.7 fL (7.4-10.4); PLATELET COUNT 212 K/uL (130-400); RED CELL DISTRIBUTION WIDTH CV 16.5 % (11.5-14.5); RED CELL DISTRIBUTION WIDTH SD 56.5 fL (36.4-46.3); WHITE BLOOD COUNT 9.75 K/uL (4.8-10.8)
[2017-11-01 06:42] LABS: INR 2.3 (0.9-1.1)
[2017-11-01 06:53] LABS: BASO % 0.9 %; BASO ABS # 0.09 K/uL (0-0.2); EOS % 2.6 %; EOS ABS # 0.25 K/uL (0-0.5); IG# 0.85 K/uL (0.00-0.02); LYMPH % 6.3 %; LYMPH ABS # 0.61 K/uL (1.2-3.4); MONO % 14.3 %; MONO ABS # 1.39 K/uL (0.11-0.59); NEUT % 67.2 %; NEUT ABS # 6.56 K/uL (1.4-6.5)
[2017-11-01 07:11] LABS: CALCIUM 8.4 mg/dl (8.5-10.1); CREATININE 1.02 mg/dl (0.60-1.20); POTASSIUM 3.9 mmol/L (3.5-5.1)
[2017-11-01 08:18] VITALS: BP 144/80; PULSE 103; TEMP 36.7; O2SAT 95
[2017-11-01] MEDS: PANTOprazole SOD 40 MG TAB PO SCH (08:35)
[2017-11-01] MEDS: ENOXAPARIN 60 MG/0.6 ML SYR SQ SCH (08:35)
[2017-11-01] MEDS: PROPRANOLOL HCL 20 MG TAB PO SCH (08:35)
[2017-11-01] MEDS: FUROSEMIDE 20 MG TAB PO SCH (08:36)
[2017-11-01] MEDS: AMOXICILLIN/CLAVULANATE TAB 500 MG TAB PO SCH (08:36)
[2017-11-01] MEDS: FLUCONAZOLE 100 MG TAB PO SCH (08:36)
[2017-11-01] MEDS: MAGNESIUM OXIDE 400 MG TAB PO SCH (08:36)
[2017-11-01] MEDS: POTASSIUM CHLORIDE 20 MEQ TABCR PO SCH (08:37)
[2017-11-01 09:03] VITALS: O2SAT 95
[2017-11-01] MEDS ORDERED: MCRK20 PO (09:08)
[2017-11-01] MEDS ORDERED: CMD25 PO (09:08)
--- NOTE | 2017-11-01 10:35 | Discharge Instructions ---
Discharge Instructions Date of Service Nov 01, 2017. Admission Reason for Admission: Duodenal Perforation, acute bilateral pulmonary emboli Discharge Discharge Diagnosis / Problem: Acute bilateral pulmonary emboli, duodenal perforation Discharge Goals Goal(s): Improve disease control, Diagnostic testing, Therapeutic intervention Activity Recommendations Activity Level: Assistance Required Therapies: Physical Therapy, Occupational Therapy . Additional Information Patient informed of condition: Yes Advance Directives: Yes DNR: No Level of Care: Acute Rehab Communicable Disease: No Prognosis: Stable Oxygen at (LPM): NA Sotelo Catheter: No Instructions / Follow-Up Instructions / Follow-Up This patient is an 87-year-old female currently being treated for lymphoma with chemotherapy and XRT, essential tremor, hypothyroidism, HTN, and osteoporosis, who presents with acute abdominal pain and was found to have a perforated viscus from a duodenal ulcer. Also at the time of admission, she was found to have bilateral segmental and subsegmental pulmonary emboli. She remained in the intensive care unit postoperatively and was transferred to the medical floor on 10/26/17. There was a question of possible rapid atrial fibrillation, but she actually had sinus tachycardia with frequent PACs. She has had acute postoperative anemia and possibly anemia worsened by chemotherapy and received 1 unit packed red blood transfusion, there is some declining platelet counts as well which were thought to be also secondary from chemotherapy and not from HIT. Perforated viscous/duodenal ulcer/peritonitis/sepsis-now POD #9 status post repair with Abad patch and ventral hernia repair. Growing Alida albicans in peritoneal fluid cultures. Diet is now advanced and she is tolerating it well. ALIYA drain still in place and will be removed as per surgical instructions Continue PPI 40 mg twice daily -Pain control -Continue. Augmentin and Diflucan for total 14 day course upon discharge as per infectious disease recommendation HTN/essential tremor/hypokalemia-was having frequent PACs but is not in atrial fibrillation, has been on IV metoprolol but now is taking p.o.. Potassium down to 2.8 at one point. Now improved -Continue propranolol 20 mg daily -Restart HCTZ 25 mg daily and follow electrolytes closely after discharge -Continue potassium chloride 20 mEq twice daily Severe edema b/l legs - due to fluid resuscitation during her stay. Marked improvement with diuretics, namely Lasix, over the last 3-4 days. Restart HCTZ upon discharge No further Lasix at this point. No obvious CHF. Acute bilateral segmental and subsegmental PEs in the setting of malignancy- there was some concern with anemia and continuing low dose heparin drip-there is been discussion of an IVC filter her oncologist prefers to try to avoid this. Lower extremity venous Dopplers negative She was treated with a heparin drip and was started on Coumadin on 10/27/17 as discussed with her primary oncologist Dr. Jean-should remain on this for at least 6 months and indefinitely with underlying lymphoma but will leave up to primary oncologist. Transitioned to Lovenox 1 mg per KG on 10/31/17, and received 2 days, but is having mild epistaxis-will discontinue Lovenox today upon discharge given that her INR is now therapeutic at 2.3 -Follow PT/INR in 1 day Acute hypoxic respiratory failure-likely secondary to bilateral pulmonary emboli as well as some volume overload from large amounts of IV fluids-now resolved Hypothyroidism-compensated, TSH several months ago was normal -Continue home p.o. Synthroid dose Pancytopenia/lymphoma-all cell lines are decreased due to recent chemotherapy. Now improved. Status post 1 unit PRBC transfusion this admission -Follow CBC with oncology in 1 week -To resume XRT, but chemotherapy likely on hold until full recovery from peritonitis is NOT on daily prednisone; she only uses the prednisone on certain days of her chemo cycles for the lymphoma -Needs follow-up appointment with oncology within 1 week CKD stage 3 - creatinine stable -Avoid nephrotoxins -Renally dose medications Osteoporosis-on Fosamax at home -Fosamax on hold now -Restart home multivitamins and calcium upon discharge Prophylaxis-Lovenox, Coumadin Disposition-discharge to [facility] today Current Hospital Diet Patient's current hospital diet: Low Fiber Diet Discharge Diet Recommended Diet: Low Fiber Diet Procedures Procedures Performed: Exploratory Laparotomy, Closure of Duodenal Ulcer with Abad Patch, Repair Ventral Hernia. Pending Studies Studies pending at discharge: no Physician Orders On Transfer Dressing Changes: As per surgery instructions IV Therapy: None Vital Signs: Routine Weigh: Routine POLST Discussion: Not Applicable Medical Emergencies . Who to Call and When: Medical Emergencies: If at any time you feel your situation is an emergency, please call 911 immediately. . Non-Emergent Contact Non-Emergency issues call your: Primary Care Provider, Surgeon . . "Provider Documentation" section prepared by Helen Thompson. . Core Measure Problem Core Measures: None
--- NOTE | 2017-11-01 10:38 | Hospitalist Progress Note ---
Hospitalist Progress Note Date of Service Nov 01, 2017. Subjective Pt evaluation today including: conversation w/ patient Patient feeling well, has some abdominal soreness. Is tolerating p.o., no nausea or vomiting. She is passing bowels and having no trouble voiding. She denies shortness of breath and is weaned completely off of supplemental O2. Denies chest pain. She notes that her legs are significantly less swollen. All Other Systems: Reviewed and Negative Objective Vital Signs Date Time Temp Pulse Resp B/P (MAP) Pulse Ox O2 Delivery O2 Flow Rate FiO2 11/01/17 09:03 95 Room Air 11/01/17 08:18 36.7 103 18 144/80 (101) 95 Room Air 11/01/17 08:00 Room Air 11/01/17 00:10 92 Room Air 10/31/17 22:49 36.6 91 18 115/69 (84) 92 Room Air 10/31/17 16:30 Room Air 10/31/17 14:54 37.0 88 16 110/62 (78) 94 Room Air Physical Exam General Appearance: WD/WN, no apparent distress (Alopecia) Eyes: normal inspection, sclerae normal ENT: hearing grossly normal, pharynx normal (No thrush) Neck: trachea midline Respiratory/Chest: lungs clear, normal breath sounds, no respiratory distress, no accessory muscle use Cardiovascular: regular rate, rhythm (With occasional ectopy), no edema, no gallop, no murmur Abdomen: normal bowel sounds, soft, + tenderness (Minimal around incision sites , dressing clean dry and intact, moe in place with some surrounding ecchymosis, ALIYA drain in place) Extremities: non-tender, normal inspection, no pedal edema, no calf tenderness Neurologic/Psychiatric: alert, normal mood/affect, oriented x 3 Skin: normal color, warm/dry, no rash Laboratory Results Last 24 Hours Test 10/31/17 13:51 11/01/17 06:06 White Blood Count 12.08 K/uL 9.75 K/uL Red Blood Count 3.28 M/uL 3.08 M/uL Hemoglobin 10.3 g/dL 9.4 g/dL Hematocrit 31.4 % 29.6 % Mean Corpuscular Volume 95.7 fL 96.1 fL Mean Corpuscular Hemoglobin 31.4 pg 30.5 pg Mean Corpuscular Hemoglobin Concent 32.8 g/dl 31.8 g/dl RDW Standard Deviation 56.4 fL 56.5 fL RDW Coefficient of Variation 16.6 % 16.5 % Platelet Count 205 K/uL 212 K/uL Mean Platelet Volume 10.5 fL 10.7 fL Activated Partial Thromboplast Time 60.4 SECONDS Partial Thromboplastin Ratio 2.3 Neutrophils (%) (Auto) 67.2 % Lymphocytes (%) (Auto) 6.3 % Monocytes (%) (Auto) 14.3 % Eosinophils (%) (Auto) 2.6 % Basophils (%) (Auto) 0.9 % Neutrophils # (Auto) 6.56 K/uL Lymphocytes # (Auto) 0.61 K/uL Monocytes # (Auto) 1.39 K/uL Eosinophils # (Auto) 0.25 K/uL Basophils # (Auto) 0.09 K/uL Immature Granulocyte % (Auto) 8.7 % Immature Granulocyte # (Auto) 0.85 K/uL Toxic Granulation 1+ Dohle Bodies OCCASIONAL Prothrombin Time 23.7 SECONDS Prothromb Time International Ratio 2.3 Sodium Level 141 mmol/L Potassium Level 3.9 mmol/L Chloride Level 105 mmol/L Carbon Dioxide Level 32 mmol/L Anion Gap 4.0 mmol/L Blood Urea Nitrogen 7 mg/dl Creatinine 1.02 mg/dl Est Creatinine Clear Calc Drug Dose 24.5 ml/min Estimated GFR () 57.7 Estimated GFR (Non- 49.8 BUN/Creatinine Ratio 6.8 Random Glucose 97 mg/dl Calcium Level 8.4 mg/dl Magnesium Level 2.0 mg/dl Lipase 410 U/L Assessment and Plan This patient is an 87-year-old female currently being treated for lymphoma with chemotherapy and XRT, essential tremor, hypothyroidism, HTN, and osteoporosis, who presents with acute abdominal pain and was found to have a perforated viscus from a duodenal ulcer. Also at the time of admission, she was found to have bilateral segmental and subsegmental pulmonary emboli. She remained in the intensive care unit postoperatively and was transferred to the medical floor on 10/26/17. There was a question of possible rapid atrial fibrillation, but she actually had sinus tachycardia with frequent PACs. She has had acute postoperative anemia and possibly anemia worsened by chemotherapy and received 1 unit packed red blood transfusion, there is some declining platelet counts as well which were thought to be also secondary from chemotherapy and not from HIT. Perforated viscous/duodenal ulcer/peritonitis/sepsis-now POD #9 status post repair with Abad patch and ventral hernia repair. Growing Alida albicans in peritoneal fluid cultures. Diet is now advanced and she is tolerating it well. ALIYA drain still in place and will be removed as per surgical instructions Continue PPI 40 mg twice daily -Pain control -Continue. Augmentin and Diflucan for total 14 day course upon discharge as per infectious disease recommendation HTN/essential tremor/hypokalemia-was having frequent PACs but is not in atrial fibrillation, has been on IV metoprolol but now is taking p.o.. Potassium down to 2.8 at one point. Now improved -Continue propranolol 20 mg daily -Restart HCTZ 25 mg daily and follow electrolytes closely after discharge -Continue potassium chloride 20 mEq twice daily Severe edema b/l legs - due to fluid resuscitation during her stay. Marked improvement with diuretics, namely Lasix, over the last 3-4 days. Restart HCTZ upon discharge No further Lasix at this point. No obvious CHF. Acute bilateral segmental and subsegmental PEs in the setting of malignancy- there was some concern with anemia and continuing low dose heparin drip-there is been discussion of an IVC filter her oncologist prefers to try to avoid this. Lower extremity venous Dopplers negative She was treated with a heparin drip and was started on Coumadin on 10/27/17 as discussed with her primary oncologist Dr. Jean-should remain on this for at least 6 months and indefinitely with underlying lymphoma but will leave up to primary oncologist. Transitioned to Lovenox 1 mg per KG on 10/31/17, and received 2 days, but is having mild epistaxis-will discontinue Lovenox today upon discharge given that her INR is now therapeutic at 2.3 -Follow PT/INR in 1 day Acute hypoxic respiratory failure-likely secondary to bilateral pulmonary emboli as well as some volume overload from large amounts of IV fluids-now resolved Hypothyroidism-compensated, TSH several months ago was normal -Continue home p.o. Synthroid dose Pancytopenia/lymphoma-all cell lines are decreased due to recent chemotherapy. Now improved. Status post 1 unit PRBC transfusion this admission -Follow CBC with oncology in 1 week -To resume XRT, but chemotherapy likely on hold until full recovery from peritonitis is NOT on daily prednisone; she only uses the prednisone on certain days of her chemo cycles for the lymphoma -Needs follow-up appointment with oncology within 1 week CKD stage 3 - creatinine stable -Avoid nephrotoxins -Renally dose medications Osteoporosis-on Fosamax at home -Fosamax on hold now -Restart home multivitamins and calcium upon discharge Prophylaxis-Lovenox, Coumadin Disposition-discharge to [facility]
[2017-11-01 11:14] VITALS: BP 144/80; PULSE 103; TEMP 36.7; O2SAT 95
--- NOTE | 2017-11-01 12:23 | Surgery Progress Note ---
Surgery Progress Note Date of Service Nov 01, 2017. Subjective + feeling well pt is doing fine, no abdominal pain, ALIYA 45ml/24/ h Objective Vital Signs: Date Time Temp Pulse Resp B/P (MAP) Pulse Ox O2 Delivery O2 Flow Rate FiO2 11/01/17 11:14 36.7 103 18 95 Room Air 11/01/17 09:03 95 Room Air 11/01/17 08:18 36.7 103 18 144/80 (101) 95 Room Air 11/01/17 08:00 Room Air 11/01/17 00:10 92 Room Air 10/31/17 22:49 36.6 91 18 115/69 (84) 92 Room Air 10/31/17 16:30 Room Air 10/31/17 14:54 37.0 88 16 110/62 (78) 94 Room Air General Appearance: WD/WN, no apparent distress Head: normocephalic Neck: supple, no JVD Respiratory/Chest: chest non-tender, lungs clear Cardiovascular: regular rate, rhythm, no edema, no gallop, no JVD, no murmur Abdomen: normal bowel sounds, non tender, non distended, soft, no organomegaly Incision(s): clean, dry, intact Extremities: normal range of motion, non-tender, normal inspection Laboratory Results: Results Past 24 Hours Test 10/31/17 13:51 11/01/17 06:06 Range/Units White Blood Count 12.08 9.75 4.8-10.8 K/uL Red Blood Count 3.28 3.08 4.2-5.4 M/uL Hemoglobin 10.3 9.4 12.0-16.0 g/dL Hematocrit 31.4 29.6 37-47 % Mean Corpuscular Volume 95.7 96.1 80-100 fL Mean Corpuscular Hemoglobin 31.4 30.5 25-34 pg Mean Corpuscular Hemoglobin Concent 32.8 31.8 32-36 g/dl RDW Standard Deviation 56.4 56.5 36.4-46.3 fL RDW Coefficient of Variation 16.6 16.5 11.5-14.5 % Platelet Count 205 212 130-400 K/uL Mean Platelet Volume 10.5 10.7 7.4-10.4 fL Activated Partial Thromboplast Time 60.4 21.0-31.0 SECONDS Partial Thromboplastin Ratio 2.3 Neutrophils (%) (Auto) 67.2 % Lymphocytes (%) (Auto) 6.3 % Monocytes (%) (Auto) 14.3 % Eosinophils (%) (Auto) 2.6 % Basophils (%) (Auto) 0.9 % Neutrophils # (Auto) 6.56 1.4-6.5 K/uL Lymphocytes # (Auto) 0.61 1.2-3.4 K/uL Monocytes # (Auto) 1.39 0.11-0.59 K/uL Eosinophils # (Auto) 0.25 0-0.5 K/uL Basophils # (Auto) 0.09 0-0.2 K/uL Immature Granulocyte % (Auto) 8.7 % Immature Granulocyte # (Auto) 0.85 0.00-0.02 K/uL Toxic Granulation 1+ Dohle Bodies OCCASIONAL Prothrombin Time 23.7 9.0-12.0 SECONDS Prothromb Time International Ratio 2.3 0.9-1.1 Sodium Level 141 136-145 mmol/L Potassium Level 3.9 3.5-5.1 mmol/L Chloride Level 105 98-107 mmol/L Carbon Dioxide Level 32 21-32 mmol/L Anion Gap 4.0 3-11 mmol/L Blood Urea Nitrogen 7 7-18 mg/dl Creatinine 1.02 0.60-1.20 mg/dl Est Creatinine Clear Calc Drug Dose 24.5 ml/min Estimated GFR () 57.7 Estimated GFR (Non- 49.8 BUN/Creatinine Ratio 6.8 10-20 Random Glucose 97 70-99 mg/dl Calcium Level 8.4 8.5-10.1 mg/dl Magnesium Level 2.0 1.8-2.4 mg/dl Lipase 410 73-393 U/L Assessment & Plan pt is stable, good urine output D/W ICU attending about treatment plan for PE , ID consult for possible sepsis continue treatment iv antibiotic, iv fluid peritoneal fluid culture repeat labs in am, will F/U 10/24/2017 I update about OR finding and the surgery pt had, pt understood, I answered all questions, continue treatment, repeat labs in am, will F/U 10/25/2017 low H/H 6.8, but pt's BP, HR are stable KUB, CXR-reviewed the reports continue treatment, may D/C NGT, Upper Gi study tomorrow will F/U 10/27/2017 doing fine, Full liquid diet will F/U 10/31/2017 pt can be discharged today F/u Dr. Díaz 1 week, , I will pull out ALIYA at my office. she can take a shower on 11/01/2017 11/01/2017 D/C today, the post op care was given, F/U [address] díaz and oncologist pt is stable, good urine output D/W ICU attending about treatment plan for PE , ID consult for possible sepsis continue treatment iv antibiotic, iv fluid peritoneal fluid culture repeat labs in am, will F/U 10/24/2017 I update about OR finding and the surgery pt had, pt understood, I answered all questions, continue treatment, repeat labs in am, will F/U 10/25/2017 low H/H 6.8, but pt's BP, HR are stable KUB, CXR-reviewed the reports continue treatment, december D/C NGT, Upper Gi study tomorrow will F/U 10/27/2017 doing fine, Full liquid diet will F/U 10/31/2017 pt can be discharged today F/u Dr. Díaz 1 week, , I will pull out ALIYA at my office. she can take a shower on 11/01/2017
--- NOTE | 2017-11-01 13:32 | Infectious Disease Progress Nt ---
Progress Note Date of Service Nov 01, 2017. Subjective Pt evaluation today including: conversation w/ patient, physical exam, chart review, lab review, review of studies, conversation w/ network pricing consultant, review of inpatient medication list Patient feeling better. Abdominal pain improving. No fever. Tolerating antibiotics without apparent difficulty. All Other Systems: Reviewed and Negative Medications Current Inpatient Medications Medications (Trade) Dose Ordered Sig/Madonna Route Start Time Stop Time Status Last Admin Dose Admin Ondansetron HCl (Zofran Inj) 4 mg Q4H PRN IV 10/23/17 11:00 11/22/17 10:59 Morphine Sulfate (MoRPHine SULFATE INJ) 2 mg Q3HWA PRN IV 10/23/17 11:00 11/06/17 10:59 10/27/17 08:02 2 MG Menthol (Nice Jaydon) 1 jaydon PRN PRN JAYDON 10/23/17 21:00 11/22/17 20:59 Hydromorphone HCl (Dilaudid Inj) 0.5 mg Q3H PRN IV 10/24/17 10:30 11/06/17 10:59 Hydrochlorothiazide (Hydrochlorothiazide Tab) 25 mg DAILY PO 10/28/17 09:00 11/27/17 08:59 Future Hold 10/30/17 08:51 25 MG Levothyroxine Sodium (Synthroid Tab) 75 mcg DAILYBB PO 10/28/17 06:00 11/27/17 05:59 11/01/17 06:25 75 MCG Lorazepam (Ativan Tab) 0.25 mg TID PRN PO 10/27/17 16:45 11/26/17 16:44 11/01/17 00:07 0.25 MG Propranolol HCl (Inderal Tab) 20 mg QAM PO 10/28/17 09:00 11/27/17 08:59 11/01/17 08:35 20 MG Pantoprazole Sodium (Protonix Tab) 40 mg BID PO 10/27/17 21:00 11/26/17 20:59 11/01/17 08:35 40 MG Potassium Chloride (Klor-Con Tab) 20 meq BID PO 10/28/17 14:00 11/27/17 13:59 11/01/17 08:37 20 MEQ Magnesium Oxide (Mag-Ox Tab) 400 mg QAM PO 10/29/17 09:00 11/28/17 08:59 11/01/17 08:36 400 MG Amoxicillin/ Clavulanate Potassium (Augmentin Tab) 500 mg BIDM PO 10/28/17 17:45 11/07/17 17:44 11/01/17 08:36 500 MG Fluconazole (Diflucan Tab) 200 mg QAM PO 10/29/17 09:00 11/08/17 08:59 11/01/17 08:36 200 MG Warfarin Sodium (Coumadin Tab) 2.5 mg DAILY@16 PO 10/29/17 16:00 11/27/17 15:59 10/31/17 16:36 2.5 MG Oxycodone/ Acetaminophen (Percocet 5-325mg Tab) `1-2 tabs for pain 1 tab ... Q4H PRN PO 10/30/17 08:15 11/13/17 08:14 Acetaminophen (Tylenol Tab) 650 mg Q4H PRN PO 10/30/17 08:30 11/29/17 08:29 Furosemide (Lasix Tab) 20 mg QAM PO 10/31/17 09:00 11/30/17 08:59 11/01/17 08:36 20 MG Enoxaparin Sodium (Lovenox Inj) 60 mg Q12@0700,1900 SQ 10/31/17 19:00 11/30/17 14:59 Future hold 11/01/17 08:35 60 MG Objective Vital Signs Date Time Temp Pulse Resp B/P (MAP) Pulse Ox O2 Delivery O2 Flow Rate FiO2 11/01/17 11:14 36.7 103 18 95 Room Air 11/01/17 09:03 95 Room Air 11/01/17 08:18 36.7 103 18 144/80 (101) 95 Room Air 11/01/17 08:00 Room Air 11/01/17 00:10 92 Room Air 10/31/17 22:49 36.6 91 18 115/69 (84) 92 Room Air 10/31/17 16:30 Room Air 10/31/17 14:54 37.0 88 16 110/62 (78) 94 Room Air Physical Exam General Appearance: WD/WN, no apparent distress Eyes: normal inspection, EOMI, sclerae normal ENT: normal ENT inspection, pharynx normal Neck: supple, no adenopathy, thyroid normal, trachea midline Respiratory/Chest: chest non-tender, lungs clear, normal breath sounds, no respiratory distress Cardiovascular: regular rate, rhythm, no gallop, no murmur Abdomen: normal bowel sounds, soft, no organomegaly, + tenderness Extremities: non-tender, no calf tenderness Neurologic/Psychiatric: alert, normal mood/affect, oriented x 3 Skin: normal color, warm/dry, no rash Lymphatic: no adenopathy Laboratory Results RUN DATE: 10/28/17 [facility] LAB PAGE 1 RUN TIME: 1434 Specimen Inquiry PATIENT: DON [place] [facility] [place] # : [id number] AGE/SX: 87/F ROOM: [facility] [place] REG : 10/23/[address]: Hakeem Payne MD : [id number] BED: 2 DIS : STATUS: ADM IN TLOC: SPEC #: [id number] CLAIRE: 10/23/17 STATUS: COMP REQ #: [id number] RECD: 10/23/17 [facility] DR: Hakeem Payne MD SOURCE: PER SHARAD ENTR: 10/23/17-[address] [facility] [address]: Delio Carter M.D. [facility]: Demian Hammer MD, Jessica ., Roberto Osman D.O. ORDERED: AER/DIXIE CULTSMR COMMENTS: Comments to Weights And Measures Sealer From ALIYA drain Has Specimen Been Obtained/Collected? Y Procedure Result Verified Site GRAM STAIN Final 10/24/17-0708 RESULT MANY POLYS NO ORGANISMS SEEN OR AER/DIXIE CULT Final 10/28/17-1434 Organism 1 AJ ALBICANS QUANITY RARE SENS NO SENSITIVITY TO FOLLOW ANAS NO ANAEROBES ISOLATED. Last 24 Hours Test 10/31/17 13:51 11/01/17 06:06 White Blood Count 12.08 K/uL 9.75 K/uL Red Blood Count 3.28 M/uL 3.08 M/uL Hemoglobin 10.3 g/dL 9.4 g/dL Hematocrit 31.4 % 29.6 % Mean Corpuscular Volume 95.7 fL 96.1 fL Mean Corpuscular Hemoglobin 31.4 pg 30.5 pg Mean Corpuscular Hemoglobin Concent 32.8 g/dl 31.8 g/dl RDW Standard Deviation 56.4 fL 56.5 fL RDW Coefficient of Variation 16.6 % 16.5 % Platelet Count 205 K/uL 212 K/uL Mean Platelet Volume 10.5 fL 10.7 fL Activated Partial Thromboplast Time 60.4 SECONDS Partial Thromboplastin Ratio 2.3 Neutrophils (%) (Auto) 67.2 % Lymphocytes (%) (Auto) 6.3 % Monocytes (%) (Auto) 14.3 % Eosinophils (%) (Auto) 2.6 % Basophils (%) (Auto) 0.9 % Neutrophils # (Auto) 6.56 K/uL Lymphocytes # (Auto) 0.61 K/uL Monocytes # (Auto) 1.39 K/uL Eosinophils # (Auto) 0.25 K/uL Basophils # (Auto) 0.09 K/uL Immature Granulocyte % (Auto) 8.7 % Immature Granulocyte # (Auto) 0.85 K/uL Toxic Granulation 1+ Dohle Bodies OCCASIONAL Prothrombin Time 23.7 SECONDS Prothromb Time International Ratio 2.3 Sodium Level 141 mmol/L Potassium Level 3.9 mmol/L Chloride Level 105 mmol/L Carbon Dioxide Level 32 mmol/L Anion Gap 4.0 mmol/L Blood Urea Nitrogen 7 mg/dl Creatinine 1.02 mg/dl Est Creatinine Clear Calc Drug Dose 24.5 ml/min Estimated GFR () 57.7 Estimated GFR (Non- 49.8 BUN/Creatinine Ratio 6.8 Random Glucose 97 mg/dl Calcium Level 8.4 mg/dl Magnesium Level 2.0 mg/dl Lipase 410 U/L Assessment and Plan (1) Peritonitis (acute) generalized (2) Perforated bowel Status: Acute 87-year-old female with lymphoma on chemotherapy now presents with duodenal perforation with peritonitis, as well as bilateral pulmonary emboli. Now status post emergency laparotomy and repair. Patient continues to slowly improve, will continue on Augmentin and fluconazole for 2 week course.
--- NOTE | 2017-11-02 07:42 | DISCHARGE SUMMARY ---
DATE OF DISCHARGE: 11/01/2017 ADMITTING DIAGNOSES: Peritonitis, perforated duodenum. DISCHARGE DIAGNOSES: Peritonitis, duodenal perforation, pulmonary emboli. PROCEDURE: Exploratory laparotomy, repair of duodenal perforation. SURGEON: Hakeem Payne MD. DETAILS OF DISCHARGE SUMMARY: This is an 87-year-old female who presented to the ED with acute abdominal pain. The patient had a CT scan, showed possible duodenal perforation with bilateral pulmonary emboli. The patient was taken to the OR, did exploratory laparotomy and found the patient has duodenal ulcer perforation. We did primary repair of duodenal perforation. After the procedure, the patient was transferred to recovery room and later on transferred to the surgical ICU, and we treated the patient for pulmonary emboli with heparin IV and with IV antibiotic to control intraabdominal infection. Otherwise, the patient doing fine. PHYSICAL EXAMINATION: VITAL SIGNS: Temperature is 36.7, heart rate is 100, respiratory rate 18, blood pressure is 144/80, O2 saturation 95% on room air. GENERAL: The patient is alert, awake, oriented x3. HEENT: Within normal limitation. NEUROLOGIC: Intact. NECK: No JVD. CHEST: Bilateral lung sounds clear. HEART: Normal S1, S2. No murmur. ABDOMEN: Soft, no tenderness, nondistended. The incision has healed well. The ALIYA drainage is minimal, about 40-50 mL over 24 hours. The drain is clear. I decided to remove the ALIYA drainage today. The patient tolerated the procedure well. No active bleeding from drainage site after we removed the ALIYA drain. Told the patient we will discharge to the jail today and the patient agreed to go to jail. Also, the hospitalist already gave the patient all the postop care instruction about how to treat the patient's infection, pulmonary emboli, recommend to continued use of Coumadin and augmenting Diflucan for 14 days and PPI 40 mg 2 times a day. Continue blood pressure medications, hydrochlorothiazide 25 mg once a day and potassium chloride 20 mEq 2 times a day p.o. Also, I gave the patient postoperative care instruction to take care of the incision and we will follow up the patient in 1 week. Also, the patient will follow up with her oncologist in 1 week. Also, I instructed the patient that the patient should come back to hospital ER if the patient develops any severe abdominal pain, temperature or diarrhea. The patient understands. MERSISA
--- NOTE | 2017-11-03 11:00 | EDITING REQUIRED CODING QUERY ---
PRESENT ON ADMISSION QUERY To promote full compliance with coding requirements relating to pateint care, physician participation is requested in all cases of board runner uncertainty. Please assist us with the question(s) below: Please place an X within the parenthesis (x). The following diagnosis(es) listed in this patient's medical record require physician assistance to determine if they were present on admission (POA) or not. Please advise for each diagnosis whether it was present on admission, not present on admission, or if it was clinically undetermined. 1. ACUTE HYPOXIC RESPIRATORY FAILURE (x ) Present On Admission ( ) Not Present On Admission ( ) Clinically Undetermined 2. PANCYTOPENIA D/T CHEMOTHERAPY ( x) Present On Admission ( ) Not Present On Admission ( ) Clinically Undetermined 3. ESSENTIAL TREMOR (x ) Present On Admission ( ) Not Present On Admission ( ) Clinically Undetermined 4. SEPSIS (x ) Present On Admission ( ) Not Present On Admission ( ) Clinically Undetermined Thank you Elida Rai *Definition of the present on admission (POA)-Present on admission is defined as present at the time the order for inpatient admission occurs. Conditions that develop during an outpatient encounter prior to a written order for inpatient admission (including emergency department, observation, or outpatient surgery) are considered present on admission.
== END 2017-11-01 15:15 | DRG 853 ==
LOC: EDBD 05:28 → C.EDB 05:29 → C.MSICU 11:10 → ENRESERV 11:13 → C.MSICU 12:52 → ENRESERV 10-26 09:44 → CANBEDREQ 10-26 12:05 → C.MSN 10-26 18:06
PROVIDERS: ADMIT Surgery; ATTEND Surgery
PROC: 0WQF0ZZ Repair Abdominal Wall, Open Approach (ICD-10-PCS; principal; 2017-10-23 09:15)
PROC: 0DU90JZ Supplement Duodenum with Synthetic Substitute, Open Approach (ICD-10-PCS; principal; 2017-10-23 09:15)
PROC: 0DQ90ZZ Repair Duodenum, Open Approach (ICD-10-PCS; principal; 2017-10-23 09:15)
DX: A41.9 Sepsis, unspecified organism (principal); K26.5 Chronic or unspecified duodenal ulcer with perforation; K65.9 Peritonitis, unspecified; I26.99 Other pulmonary embolism without acute cor pulmonale; J96.01 Acute respiratory failure with hypoxia; D61.810 Antineoplastic chemotherapy induced pancytopenia; B37.89 Other sites of candidiasis; C85.10 Unspecified B-cell lymphoma, unspecified site; D62 Acute posthemorrhagic anemia; K43.9 Ventral hernia without obstruction or gangrene; I95.9 Hypotension, unspecified; I48.91 Unspecified atrial fibrillation; E87.6 Hypokalemia; D69.59 Other secondary thrombocytopenia; T45.1X5A Adverse effect of antineoplastic and immunosuppressive drugs, initial encounter; G25.0 Essential tremor; D64.81 Anemia due to antineoplastic chemotherapy; I12.9 Hypertensive chronic kidney disease with stage 1 through stage 4 chronic kidney disease, or unspecified chronic kidney disease; N18.3 Chronic kidney disease, stage 3 (moderate); E03.9 Hypothyroidism, unspecified; M81.0 Age-related osteoporosis without current pathological fracture; M19.90 Unspecified osteoarthritis, unspecified site; E66.9 Obesity, unspecified; Z68.37 Body mass index [BMI] 37.0-37.9, adult; Z87.891 Personal history of nicotine dependence; Z79.1 Long term (current) use of non-steroidal anti-inflammatories (NSAID); Z79.52 Long term (current) use of systemic steroids; Z79.83 Long term (current) use of bisphosphonates; Z79.899 Other long term (current) drug therapy

== ENCOUNTER → 2017-11-10 | Outpatient (CLI) | payer OTHER ==
[~2017-11-10] MED LIST changes: +ACET1TAB84 PO; -B COCAP3 PO; +B-COTAB18 PO; -CHOL1000 PO; +CHOL1CAP57 PO; +CMD25 PO; -CYAN100073 PO; +CYAN1TAB4 PO; +FERR1TAB13 PO; -FERR325T5 PO; +FURO-85 PO; -HYDR-5688 PO; +MCRK20 PO; -MELO15TA10 PO; +OXYC-57 PO; +PANT1TAB3 PO; +PRD20 PO; +VANC1CAP3 PO; +WARF5TAB7 PO
[2017-11-10 16:50] LABS: INR 1.9 (0.9-1.1)
== END | disposition home or self-care (01) ==
LOC: C.LABSPEC 16:34
PROVIDERS: ATTEND Internal Medicine
DX: I26.99 Other pulmonary embolism without acute cor pulmonale (principal)

== ENCOUNTER → 2017-11-11 | Outpatient (CLI) | payer OTHER ==
[2017-11-11 12:33] LABS: INR 2.7 (0.9-1.1)
== END | disposition home or self-care (01) ==
LOC: C.LABSPEC 10:14
PROVIDERS: ATTEND Internal Medicine
DX: I26.99 Other pulmonary embolism without acute cor pulmonale (principal)

== ENCOUNTER → 2017-11-21 | Outpatient (CLI) | payer OTHER | END | disposition home or self-care (01) | LOC: C.LABSPEC 17:40 | PROVIDERS: ATTEND Internal Medicine | DX: R19.7 Diarrhea, unspecified (principal) ==

== ENCOUNTER → 2017-11-29 | Outpatient (CLI) | payer OTHER ==
[~2017-11-29] MED LIST changes: -B-COTAB18 PO; -CMD25 PO; -GLUCTAB7 PO; -OXYC-57 PO; -PRD20 PO; -SENNTAB23; -ZINC1TAB PO
--- NOTE | 2017-11-29 13:02 | DIAGNOSTIC IMAGING REPORT ---
PET/CT CLINICAL HISTORY: Lymphoma. TECHNIQUE: A PET/CT was performed from the skull vertex through the upper thighs following intravenous injection of 14.53 mCi of F 18 FDG IV. The injection was performed at 8:59 AM on November 29, 2017 and imaging began at 10:14 AM on November 29, 2017. Unenhanced CT was performed for attenuation correction purposes and anatomic localization. COMPARISON STUDY: PET CT August 30, [address] of the chest, abdomen and pelvis October 23, 2017. FINDINGS: Head and neck: FDG avid left-sided cervical lymphadenopathy has resolved since exam of August 30, 2017. The nodes are now normal in size with resolution of FDG uptake. There is no pathologic lymphadenopathy on current exam. There may be minimal residual left supraclavicular soft tissue thickening without FDG uptake. There is moderate symmetric FDG uptake within the thyroid lobes. Chest: There has been interval resolution of FDG uptake within the left axillary lymphadenopathy since exam of September 09, 2017. The nodes have markedly decreased in size since prior exam. There is a prominent 1.8 x 0.9 cm left axillary lymph node shown on image 82. This has no abnormal FDG uptake. The conglomerate adenopathy has resolved. No pathologically enlarged thoracic nodes are identified on this examination. There is no abnormal FDG uptake within the chest. Mild dilatation of the ascending aorta is unchanged. Note is made of an aberrant right subclavian artery. Abdomen and Pelvis: No abdominal or pelvic lymphadenopathy is present. There are gallstones within the gallbladder. Moderate gallbladder distention is noted without pericholecystic infiltration. A hypodense left renal cyst is noted. The patient is status post laparotomy. Mild FDG uptake with an SUV max of 7.3 within the upper anterior abdominal wall at site of laparotomy is likely postsurgical. A pessary device is in place. There is no evidence for a bowel obstruction. There is trace fluid within the pelvis. Musculoskeletal: No suspicious skeletal uptake is identified. Multiple thoracic and lumbar spine compression fractures are noted. IMPRESSION: 1. PET/CT findings consistent with a complete treatment response. Interval resolution of left axillary and cervical lymphadenopathy since PET/CT of August 30, 2017. A few prominent left axillary lymph nodes which are at the upper limits of normal for size without residual FDG uptake. 2. Moderate FDG uptake within the superior aspect of the laparotomy site which is likely post surgical. 3. Cholelithiasis. Electronically signed by: Nito Mckeon M.D. 11/29/2017 1:01 PM Dictated Date/Time: 11/29/2017 11:57 AM
== END | disposition home or self-care (01) ==
LOC: C.PET 08:43
PROVIDERS: ATTEND Physician Assistant Medical
DX: C83.34 Diffuse large B-cell lymphoma, lymph nodes of axilla and upper limb (principal)

== ENCOUNTER → 2017-12-12 | Outpatient (CLI) | payer OTHER ==
[2017-12-12 18:21] LABS: BASO % 0.4 %; BASO ABS # 0.02 K/uL (0-0.2); EOS % 10.2 %; EOS ABS # 0.53 K/uL (0-0.5); HEMATOCRIT 30.1 % (37-47); HEMOGLOBIN 9.2 g/dL (12.0-16.0); IG# 0.01 K/uL (0.00-0.02); LYMPH % 26.9 %; MEAN CELL VOLUME 99.7 fL (80-100); MEAN CORPUSCULAR HEMOGLOBIN 30.5 pg (25-34); MEAN CORPUSCULAR HGB CONC 30.6 g/dl (32-36); MEAN PLATELET VOLUME 9.3 fL (7.4-10.4); MONO % 13.3 %; MONO ABS # 0.69 K/uL (0.11-0.59); NEUT ABS # 2.55 K/uL (1.4-6.5); PLATELET COUNT 302 K/uL (130-400); RED CELL DISTRIBUTION WIDTH CV 16.3 % (11.5-14.5); RED CELL DISTRIBUTION WIDTH SD 59.5 fL (36.4-46.3)
[2017-12-12 18:28] LABS: INR 1.1 (0.9-1.1)
[2017-12-12 18:31] LABS: ALBUMIN 3.6 gm/dl (3.4-5.0); ALT/SGPT 36 U/L (12-78); AST/SGOT 23 U/L (15-37); BLOOD UREA NITROGEN 13 mg/dl (7-18); CALCIUM 8.7 mg/dl (8.5-10.1); CARBON DIOXIDE 29 mmol/L (21-32); CREATININE 0.99 mg/dl (0.60-1.20); GLUCOSE 86 mg/dl (70-99); SODIUM 140 mmol/L (136-145)
[2017-12-12 18:36] LABS: ALKALINE PHOSPHATASE 62 U/L (45-117); TOTAL PROTEIN 6.9 gm/dl (6.4-8.2)
== END | disposition home or self-care (01) ==
LOC: C.LABSPEC 17:07
PROVIDERS: ATTEND Internal Medicine
DX: I82.401 Acute embolism and thrombosis of unspecified deep veins of right lower extremity (principal); I10 Essential (primary) hypertension; C85.90 Non-Hodgkin lymphoma, unspecified, unspecified site

== ENCOUNTER → 2017-12-26 | Outpatient (CLI) | payer OTHER ==
[~2017-12-26] MED LIST changes: -BIOT300T2 PO; -HYDR25TA4 PO; -VANC1CAP3 PO
[2017-12-26 16:43] LABS: INR 1.5 (0.9-1.1)
== END | disposition home or self-care (01) ==
LOC: C.LABSPEC 17:21
PROVIDERS: ATTEND Internal Medicine
DX: Z51.81 Encounter for therapeutic drug level monitoring (principal); Z79.01 Long term (current) use of anticoagulants; I26.99 Other pulmonary embolism without acute cor pulmonale

== ENCOUNTER → 2018-04-04 | Outpatient (CLI) | payer OTHER ==
[2018-04-04 18:10] LABS: INR 3.1 (0.9-1.1)
== END | disposition home or self-care (01) ==
LOC: C.LABSPEC 17:37
PROVIDERS: ATTEND Internal Medicine
DX: Z51.81 Encounter for therapeutic drug level monitoring (principal); I26.99 Other pulmonary embolism without acute cor pulmonale; Z79.01 Long term (current) use of anticoagulants

== ENCOUNTER → 2018-04-04 | Outpatient (CLI) | payer OTHER ==
--- NOTE | 2018-04-04 13:37 | MAMMOGRAPHY REPORT ---
BILATERAL DIGITAL SCREENING MAMMOGRAM TOMOSYNTHESIS WITH CAD: 04/04/2018 CLINICAL HISTORY: Routine screening. Patient has no complaints. TECHNIQUE: The study was acquired using full field digital technology and interpreted from soft copy. Breast tomosynthesis in addition to standard 2D mammography was performed. Current study was also ev aluated with a Computer Aided Detection (CAD) system. COMPARISON: Comparison is made to exams dated: 07/26/2017 mammogram, 04/03/2017 mammogram, 03/30/2016 ma mmogram, and 03/27/2015 mammogram - [facility]. BREAST COMPOSITION: The tissue of both breasts is heterogeneously dense, which may obscure small mass es. FINDINGS: There are scattered benign coarse calcifications and minimal vascular calcification in the breasts. The glandular tissue pattern is similar to prior exams. No suspicious mass, architectural d istortion or cluster of microcalcifications is seen. IMPRESSION: ACR BI-RADS CATEGORY 1: NEGATIVE There is no mammographic evidence of malignancy. A 1 year screening mammogram is recommended.( 019) The patient will receive written notification of the results. Some breast cancers are not detected with mammography. A negative mammographic report should not niels y biopsy if a clinically suggestive mass is present. Cinthia Mejia M.D. ay/:04/04/2018 12:45:04 Assistant Director Of Admissions: RT Lashawn(Bella)(M), [facility] letter sent: Normal 1/2 BI-RADS Code: ACR BI-RADS Category 1: Negative
== END | disposition home or self-care (01) ==
LOC: C.MAMM 12:04
PROVIDERS: ATTEND Internal Medicine
DX: Z12.31 Encounter for screening mammogram for malignant neoplasm of breast (principal)

== ENCOUNTER → 2018-04-16 | Outpatient (CLI) | payer OTHER ==
[2018-04-16 14:01] LABS: INR 2.1 (0.9-1.1)
== END | disposition home or self-care (01) ==
LOC: C.LABSPEC 13:29
PROVIDERS: ATTEND Internal Medicine
DX: Z51.81 Encounter for therapeutic drug level monitoring (principal); Z79.01 Long term (current) use of anticoagulants; I26.99 Other pulmonary embolism without acute cor pulmonale

== ENCOUNTER 2020-08-14 03:57 | Inpatient (IN) ==
[2020-08-14] MEDS ORDERED: LORazepam 1 MG/2 ML VIAL IV STA (04:28)
[2020-08-14] MEDS ORDERED: MoRPHine SULFATE 10 MG/ML CARP/VIAL IM STA (04:28)
--- NOTE | 2020-08-14 04:28 | Emergency Department Note ---
History of Present Illness General Chief complaint: Respiratory Distress Stated complaint: BREATHING DIFFICULTY Time Seen by Provider: 08/14/20 04:10 Source: family Mode of arrival: EMS Limitations: altered mental status and physical limitation History of Present Illness Provider complaint: Difficulty breathing This is an 89-year-old female who presents via EMS at the request of family due to worsening difficulty breathing. Patient has been doing home hospice through [facility]. Patient's niece who presents to bedside has been managing her home hospice care in conjunction with the hospice nurse. She states he has been on home oxygen, receiving methadone, morphine, a medication for fluid, in addition to her normal Lasix. She states patient has a history of advanced lymphoma. She states her breathing continued to get worse today despite all of these other medications. They did add lorazepam which the patient was given also, and niece became concerned due to increased work of breathing and increased edema throughout her body. She feels she can no longer care for the patient at home. She states the patient did develop a fever today of 100.7. On EMS arrival patient was satting in the 50s on nasal cannula, she was placed on a nonrebreather and sats came up into the 90s. Pt seen during a time of high acuity and national emergency pandemic while wearing PPE. Home Medications Medication Instructions Recorded Confirmed Type furosemide [Lasix] 20 mg PO DAILY 08/14/20 08/14/20 History hyoscyamine sulfate 0.125 mg SUBLINGUAL Q4 PRN 08/14/20 08/14/20 History lorazepam 0.5 mg PO Q4 PRN 08/14/20 08/14/20 History methadone 2.5 mg PO AMPM 08/14/20 08/14/20 History morphine concentrate 5 mg PO .Q 2 HOURS PRN 08/14/20 08/14/20 History oxycodone 10 mg PO .Q3 HRS 08/14/20 08/14/20 History Allergies Allergy/AdvReac Type Severity Reaction Status Date / Time No Known Allergies Allergy Unknown Verified 08/14/20 06:12 Past Med/Surg History Medical History (Updated 08/14/20 @ 06:38 by Estelle Marie DO) Arthritis 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) Essential tremor Hx of gastric ulcer PERFORATED DUODENAL ULCER REPAIRED Hypertension Hypothyroidism Osteoporosis Postmenopausal bleeding Pulmonary emboli BILATERAL LUNGS AND WAS ON HEPARIN IN [facility]OSP[facility] AND [facility] Surgical History History of back surgery History of dilation and curettage History of esophagogastroduodenoscopy (EGD) History of excision of lesion Chest Wall History of lumbar surgery X 4 History of vascular access device A PORT Hx of carpal tunnel repair LEFT Hx of cataract surgery RIGHT AND LEFT Hx of gynecological procedure Pessary Insertion Hx of tonsillectomy Family History Brother Cardiac disorder Colon cancer Leukemia Father Prostate cancer Other Breast cancer Denies family history of Ovarian cancer Myocardial infarction Social History Smoking Status: Unknown if ever smoked Second Hand Exposure: No; Hx Alcohol Use: Yes Alcohol type: other Preferred Language: Cameroonian Communication Ability: Unable Communication Ability Comment: 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 Beliefs That Will Affect Care: None marital status: / Current Living Situation: Jail Feels Safe at Home: Yes Assistive Devices: Oxygen - Continuous Review of Systems Unobtainable due to cognitive status Physical Exam Vital Signs Vital Signs - 24 hr 08/14/20 04:23 08/14/20 04:31 08/14/20 06:02 Temperature 37.1 C Temperature Source Oral Pulse Rate 159 H Pulse Rate [Right Finger] 165 H Respiratory Rate 28 H 26 H Respiratory Effort / Characteristics Labored Respiratory Depth Normal Normal Respiratory Pattern Regular Blood Pressure 135/79 Blood Pressure [Right Arm] 120/69 Blood Pressure Mean 97 Blood Pressure Mean [Right Arm] 86 Blood Pressure Position Lying Blood Pressure Position [Right Arm] Lying Pulse Oximetry 93 56 L 92 Oxygen Delivery Method Non-rebreather Non-rebreather Non-rebreather Oxygen Flow Rate 15 2 15 Sepsis Recent Fever Within 48 Hours No Sepsis New/Unexplained Change in Mental Status No Sepsis Action Taken by Nursing No Action Required Oxygen Flow Rate - Titration 15 Pulse Oximetry Post Tiitration 93 GENERAL: significant dyspnea, ill appearing, attempts to open eyes EYE EXAM: normal conjunctiva, PERRL and EOM's grossly intact NECK: supple, no nuchal rigidity, no adenopathy, non-tender LUNGS: severe resp distress, incr WOB, tachypnea, audible rales CHEST: firmness to left chest wall/left breast and weeping of wounds, dressing in place from home HEART: tachycardic and irregular ABDOMEN: abdomen soft, non-tender, normo-active bowel sounds, no masses, no rebound or guarding. BACK: Back is symmetrical on inspection and there is no deformity, no midline tenderness, no CVA tenderness. SKIN: no rashes and no bruising UPPER EXTREMITIES: upper extremities are grossly normal. significant edema noted, worse on left, nml pulses b/l. LOWER EXTREMITIES: 3+ b/l pitting edema. nml pulses b/l. NEURO EXAM: minimally responsive, appears in distress, cannot perform additional neuro testing Course Course 0548: Patient still with audible rales, although slightly decreased work of breathing. 0602: Discussed with Dr. Marie, hospitalist service. Administered Medications Discontinued Medications Atropine Sulfate (Atropine Sulfate 1% Op Soln 5 Ml Btl) 4 drops SL Q1H PRN PRN Reason: Secretions or Pulm Congestion Stop: 09/13/20 13:40 Last Admin: 08/15/20 06:27 Dose: 4 drops Documented by: [id number] Admin: 08/15/20 05:27 Dose: 4 drops Documented by: [id number] Admin: 08/15/20 04:49 Dose: 4 drops Documented by: [id number] Admin: 08/15/20 03:39 Dose: 4 drops Documented by: [id number] Admin: 08/15/20 01:23 Dose: 4 drops Documented by: [id number] Admin: 08/14/20 22:28 Dose: 4 drops Documented by: [id number] Admin: 08/14/20 19:50 Dose: 4 drops Documented by: [id number] Admin: 08/14/20 18:19 Dose: 4 drops Documented by: [id number] Admin: 08/14/20 14:46 Dose: 4 drops Documented by: [id number] Glycopyrrolate (Glycopyrrolate 0.2 Mg/Ml Vial) 0.2 mg IV NOW STA Stop: 08/14/20 04:35 Last Admin: 08/14/20 04:48 Dose: 0.2 mg Documented by: [id number] Glycopyrrolate (Glycopyrrolate 0.2 Mg/Ml Vial) 0.2 mg IV Q4H PRN PRN Reason: Secretions or Pulm Congestion Stop: 09/13/20 10:12 Last Admin: 08/15/20 05:14 Dose: 0.2 mg Documented by: [id number] Admin: 08/14/20 22:27 Dose: 0.2 mg Documented by: [id number] Admin: 08/14/20 18:21 Dose: 0.2 mg Documented by: [id number] Lorazepam (Ativan) 1 mg in 2 mls @ 2 mls/min IV NOW STA Stop: 08/14/20 04:29 Last Admin: 08/14/20 04:48 Dose: 2 mls/min Documented by: [id number] Lorazepam (Ativan) 0.5 mg in 1 mls @ 1 mls/min IV Q2H PRN PRN Reason: Anxiety/Agitation Stop: 09/13/20 10:12 Last Admin: 08/15/20 01:38 Dose: 1 mls/min Documented by: [id number] Morphine Sulfate (Morphine Sulf/Nss) 250 mg in 250 mls @ 10 mls/hr IV .Q25H DENA; Protocol Stop: 08/29/20 03:59 Last Titration: 08/15/20 13:25 Dose: 0 mg/hr, 0 mls/hr Documented by: [id number] Cosigned by: [id number] Titration: 08/15/20 10:49 Dose: 10 mg/hr, 10 mls/hr Documented by: [id number] Cosigned by: [id number] Titration: 08/15/20 09:45 Dose: 9 mg/hr, 9 mls/hr Documented by: [id number] Cosigned by: [id number] Titration: 08/15/20 08:30 Dose: 8 mg/hr, 8 mls/hr Documented by: [id number] Cosigned by: [id number] Titration: 08/15/20 07:19 Dose: 7 mg/hr, 7 mls/hr Documented by: [id number] Cosigned by: [id number] Titration: 08/15/20 06:23 Dose: 7 mg/hr, 7 mls/hr Documented by: [id number] Cosigned by: [id number] Titration: 08/15/20 06:01 Dose: 6 mg/hr, 6 mls/hr Documented by: [id number] Cosigned by: [id number] Titration: 08/15/20 05:40 Dose: 5 mg/hr, 5 mls/hr Documented by: [id number] Cosigned by: [id number] Titration: 08/15/20 05:24 Dose: 4 mg/hr, 4 mls/hr Documented by: [id number] Cosigned by: [id number] Titration: 08/15/20 05:09 Dose: 3 mg/hr, 3 mls/hr Documented by: [id number] Cosigned by: [id number] Titration: 08/15/20 04:55 Dose: 2 mg/hr, 2 mls/hr Documented by: [id number] Cosigned by: [id number] Admin: 08/15/20 04:45 Dose: 1 mg/hr, 1 mls/hr Documented by: [id number] Cosigned by: [id number] Morphine Sulfate (Morphine Sulfate 10 Mg/Ml Carp/Vial) 6 mg IM NOW STA Stop: 08/14/20 04:29 Last Admin: 08/14/20 04:48 Dose: 6 mg Documented by: [id number] Morphine Sulfate (Morphine Sulfate 5 Mg/0.25 Ml Udp) 5 mg PO NOW STA Stop: 08/14/20 06:00 Last Admin: 08/14/20 06:29 Dose: 5 mg Documented by: [id number] Morphine Sulfate (Morphine Sulfate 2 Mg/Ml Carp) 2 mg IV Q2H PRN PRN Reason: Pain or Respiratory Distress Stop: 08/28/20 10:12 Last Admin: 08/15/20 03:39 Dose: 2 mg Documented by: [id number] Admin: 08/15/20 01:23 Dose: 2 mg Documented by: [id number] Admin: 08/14/20 22:42 Dose: 2 mg Documented by: [id number] Admin: 08/14/20 19:50 Dose: 2 mg Documented by: [id number] Admin: 08/14/20 16:55 Dose: 2 mg Documented by: [id number] Medical Decision Making Differential Diagnosis Differential diagnoses includes but is not limited to pneumonia, bronchitis, COPD/Asthma exacerbation, pneumothorax, pulmonary embolism, congestive heart failure, acute coronary syndrome Medical Records Attestation: I reviewed the patient's medical records. Home Medications Current Medication List: was personally reviewed by me Laboratory Data Lab Results 08/14/20 Range/Units 07:51 SARS-CoV-2, RNA, NAAT POSITIVE A* (NEGATIVE) MDM Narrative Pt here as family no longer felt they could care for her at home despite being on hospice. Pt in significant distress here with audible rales, increased WOB, anasarca. Significant bedside discussion with niece who has been her caregiver. She states they would like inpatient hospice at this time. Pt placed on NRB, given morphine IM, ativan neb, and glycopyrrolate to help with secretions. Pt remained tachypneic, tachycardic, with increased WOB. CAse discussed with hospitalist. Additional doses of meds pt was using at home for hospice were also ordered. An order was placed for continuous cardiac monitoring. The monitor shows a rate of 136_ with _sinus tachycardia__ rhythm. Impression & Plan Acute dyspnea, Anasarca, Pulmonary edema, COVID-19 Discharge Plan Visit Data Chief Complaint: Respiratory Distress Stated Complaint: BREATHING DIFFICULTY ED Provider: Lina Anne Discharge Problem: Acute dyspnea, Anasarca, Pulmonary edema, COVID-19 Patient Disposition: Admitted As Inpatient Discharge Instructions Interventions: ED Discharge Assessment Last Done: 08/14/20 12:36 Discharge Problem: Pulmonary edema Qualifiers: Chronicity: acute Qualified Code(s): J81.0 - Acute pulmonary edema
[2020-08-14] MEDS ORDERED: GLYCOPYRROLATE 0.2 MG/ML VIAL IV STA (04:34)
[2020-08-14] MEDS ORDERED: MoRPHine SULFATE 5 MG/0.25 ML UDP PO STA (05:59)
--- NOTE | 2020-08-14 06:45 | History & Physical Report ---
Date of Service August 14, 2020 Assessment & Plan (1) Hospice care: 89yo C female with end-stage diffuse large B cell lymphoma on home hospice presents with worsening dyspnea, respiratory distress and pulmonary secretions. Patient appears to be actively dying at this point. She is unresponsive to verbal or tactile stimuli. Abdominal retractions present with breath. -Admit to medical floor -Comfort care measures -Ativan 1mg IV q 2 hours as needed for anxiety -Morphine 2mg IV q 2 hours as needed for pain or air hunger -Atropine drops and glycopyrrolate as needed for secretions -Zofran as needed for nausea -Palliative Care consultation appreciated Present on Admission?: Yes (2) COVID-19: Patient's bedside Covid-19 rapid antigen test POSITIVE. -Maintain isolation precautions - Airborne and Contact -Unfortunately, patient may not have visitors F/E/N - No IVF. No lab draws. Food and drink as patient desires Ppx - No indication Code - DNR/DNI Comfort measures Dispo - Admit to medical, Covid precautions -Niece at bedside - she voiced concern over her potential exposure to Covid. She has been taking care of her aunt in her home and has been in close contact with her. I informed her niece that the risk of transmission to her and others close to the patient was high and that she should quarantine for two weeks and monitor for symptoms. Niece voiced understanding and stated that she would contact others that were in close contact with the patient. Present on Admission?: Yes History of Present Illness Chief Complaint: End of life Primary Care Provider: Delio Hoang MD Collette Kovacs is an unfortunate 89yo C female with end-stage diffuse large B cell lymphoma, on home hospice who presents with her niece today for worsening SOB, AMS, respiratory distress. Patient developed worsening pulmonary symptoms this evening around 20:00. Her niece administered Morphine and hyoscyamine for air hunger and secretions, however around 22:00 patient was continuing to have difficulty. The niece brought her to the ER because she was not comfortable with the patient at home. On arrival patient afebrile, RR of 28, HR of 159, saturating 56% on NRB. Niece is at bedside and wishes to continue comfort measures. ER Course: Glycopyrrolate 0.2mg, Lorazepam 1mg, Morphine 5mg + 6mg IV Patient's pre-admission rapid Covid-19 test was POSITIVE. Allergies Allergy/AdvReac Type Severity Reaction Status Date / Time No Known Allergies Allergy Unknown Verified 08/14/20 06:12 Home Medications Medication Instructions Recorded Confirmed Type furosemide [Lasix] 20 mg PO DAILY 08/14/20 08/14/20 History hyoscyamine sulfate 0.125 mg SUBLINGUAL Q4 PRN 08/14/20 08/14/20 History lorazepam 0.5 mg PO Q4 PRN 08/14/20 08/14/20 History methadone 2.5 mg PO AMPM 08/14/20 08/14/20 History morphine concentrate 5 mg PO .Q 2 HOURS PRN 08/14/20 08/14/20 History oxycodone 10 mg PO .Q3 HRS 08/14/20 08/14/20 History Past Med/Surg History Medical History (Updated 08/14/20 @ 06:38 by Estelle Marie DO) Arthritis 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) Essential tremor Hx of gastric ulcer PERFORATED DUODENAL ULCER REPAIRED Hypertension Hypothyroidism Osteoporosis Postmenopausal bleeding Pulmonary emboli BILATERAL LUNGS AND WAS ON HEPARIN IN HOSPITAL AND [facility] Surgical History History of back surgery History of dilation and curettage History of esophagogastroduodenoscopy (EGD) History of excision of lesion Chest Wall History of lumbar surgery X 4 History of vascular access device A PORT Hx of carpal tunnel repair LEFT Hx of cataract surgery RIGHT AND LEFT Hx of gynecological procedure Pessary Insertion Hx of tonsillectomy Family History Brother Cardiac disorder Colon cancer Leukemia Father Prostate cancer Other Breast cancer Denies family history of Ovarian cancer Myocardial infarction Social History Smoking Status: Never smoker Second Hand Exposure: No; Hx Alcohol Use: Yes Alcohol type: wine Hx Substance Use: No Preferred Language: Omani Communication Ability: Effective 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 Beliefs That Will Affect Care: None marital status: / Current Living Situation: Alone Feels Safe at Home: Yes Assistive Devices: Glasses Review of Systems Review of Systems: Unobtainable due to cognitive status Physical Exam Physical Exam: General: patient resting, unresponsive to verbal or tactile stimuli Skin: pale, cool, dry, intact, no rashes or lesions HEENT: NC/AT, moist mucus membranes, dentition intact, no oropharyngeal lesions, neck supple, trachea midline, no LAD, no thyromegaly, no JVD Heart: +S1/S2, regular, tachycardic with frequent ectopy, no m/r/g Lungs: patient with abdominal retractions, agonal respirations with audible secretions and edema Ext: cool, +anasarca Neuro: Patient does not respond to verbal or tactile stimulli Results & Data Results & Data ([facility]) Vital Signs (Past 12 Hours) Vital Signs Temp Pulse Pulse Resp BP BP Pulse Ox 08/14/20 06:02 165 H 26 H 120/69 92 08/14/20 04:31 56 L 08/14/20 04:23 37.1 C 159 H 28 H 135/79 93 Laboratory Results No laboratory studies obtained. Diagnostic Findings No imaging studies obtained. ECG Additional Comments: No EKG obtained. Code Status & VTE Plan Code Status DNR/DNI, Hospice VTE Prophylaxis Plan VTE Prophylaxis will be ordered: No Reason for no VTE drug order: Treatment not indicated Reason for no VTE mechanical prophylaxis: Treatment not indicated PG Care Time/CCT Total # of Minutes Spent Total Time Spent with Patient: Total time spent is greater than 50% in coordination of care (as documented) at patient's floor/unit and/or counseling patient: Coding Level of Care Code 78695 Initial Inpt Care Lvl 2 Diagnoses Hospice care Z51.5 COVID-19 U07.1
[2020-08-14] MEDS ORDERED: ONDANSETRON 4 MG OD TAB SL PRN (10:13)
[2020-08-14] MEDS ORDERED: ONDANSETRON INJ 2 MG/ML 2 ML VIAL IV PRN (10:13)
[2020-08-14] MEDS ORDERED: ATROPINE SULFATE 1% OP SOLN 2 ML BTL SL PRN (10:13)
[2020-08-14] MEDS ORDERED: LORazepam 0.5 MG/1 ML VIAL IV PRN (10:13)
[2020-08-14] MEDS: ATROPINE SULFATE 1% OP SOLN 5 ML BTL SL PRN ×4 (14:46→22:28)
[2020-08-14] MEDS: MoRPHine SULFATE 2 MG/ML CARP IV PRN ×3 (16:55→22:42)
[2020-08-14] MEDS: GLYCOPYRROLATE 0.2 MG/ML VIAL IV PRN ×2 (18:21→22:27)
[2020-08-14] MEDS ORDERED: HEPARIN 100 UNIT/ML 5ML FLUSH FLUSH PRN (22:28)
[2020-08-15] MEDS: MoRPHine SULFATE 2 MG/ML CARP IV PRN ×2 (01:23→03:39)
[2020-08-15] MEDS: ATROPINE SULFATE 1% OP SOLN 5 ML BTL SL PRN ×5 (01:23→06:27)
[2020-08-15] MEDS ORDERED: STAT IV Infusion **Titration per Protocol STA (03:47)
[2020-08-15] MEDS ORDERED: MoRPHine SULF/NSS 250 MG/250 ML BTL IV SCH (04:00)
[2020-08-15] MEDS: GLYCOPYRROLATE 0.2 MG/ML VIAL IV PRN (05:14)
--- NOTE | 2020-08-15 14:00 | Discharge Summary ---
Date of Service August 15, 2020 Admission HPI Per Admitting Provider Collette Kovacs is an unfortunate 89yo C female with end-stage diffuse large B cell lymphoma, on home hospice who presents with her niece today for worsening SOB, AMS, respiratory distress. Patient developed worsening pulmonary symptoms this evening around 20:00. Her niece administered Morphine and hyoscyamine for air hunger and secretions, however around 22:00 patient was continuing to have difficulty. The niece brought her to the ER because she was not comfortable with the patient at home. On arrival patient afebrile, RR of 28, HR of 159, saturating 56% on NRB. Niece is at bedside and wishes to continue comfort measures. ER Course: Glycopyrrolate 0.2mg, Lorazepam 1mg, Morphine 5mg + 6mg IV Patient's pre-admission rapid Covid-19 test was POSITIVE. Principal Diagnosis acute respiratory failure Discharge Exam see pronouncement note. Discharge Data Allergies Allergy/AdvReac Type Severity Reaction Status Date / Time No Known Allergies Allergy Unknown Verified 08/14/20 06:12 Consultations 08/14/20 10:13 Consult Case Management - Discharge Planning Routine Consult Palliative Care Routine Hospital Course (1) Hospice care: 89yo C female with end-stage diffuse large B cell lymphoma on home hospice presents with worsening dyspnea, respiratory distress and pulmonary secretions. Patient appears to be actively dying at this point. She is unresponsive to verbal or tactile stimuli. Abdominal retractions present with breath. -Admit to medical floor -Comfort care measures -Ativan 1mg IV q 2 hours as needed for anxiety -Morphine 2mg IV q 2 hours as needed for pain or air hunger -Atropine drops and glycopyrrolate as needed for secretions -Zofran as needed for nausea -Palliative Care consultation appreciated Patient on 08/15/20 Time of 13:25 Pronounced: 13:45 (2) COVID-19: Patient's bedside Covid-19 rapid antigen test POSITIVE. -Maintain isolation precautions - Airborne and Contact -Unfortunately, patient may not have visitors F/E/N - No IVF. No lab draws. Food and drink as patient desires Niece updated on phone Total Time Total Time Spent Total Time Spent (In Minutes): 25 Total Time Includes: Examination of the Patient Discharge Plan Discharge Items Patient Disposition: Coding Level of Care Code D/C Day Management <30 mins Diagnoses Hospice care Z51.5 COVID-19 U07.1
--- NOTE | 2020-08-23 21:45 | Death Pronouncement Note ---
Date of Service August 23, 2020 Pronouncement Note Admission Date Admission Date: August 14, 2020 Date and Time of Date of : 08/15/20 Time of : 13:25 PCOD Preliminary cause of : COVID-19 Contributing Factors (1) Hospice care: (2) COVID-19: Hospital Course Hospital Course: Patient admitted with COVID 19 and B cell lymphoma. She was admitted under hospice care. She on 08/15/20 Additional Data Confirmation of : no pulse, no respirations and no heart sounds Family: contacted Attending/PCP notified?: Yes Attending physician: Uli Champagne Was code activated?: No Autopsy requested?: No Advance directives: Yes
== END 2020-08-15 13:25 | disposition expired | DRG 177 ==
LOC: ED 03:57 → SUATTDRO 08:11 → EDINP 08:11 → 2E 13:07